=== PATIENT | male | born 1985 | race Caucasian/White ===

== ENCOUNTER 2023-04-16 18:53 | Emergency (ER) | payer SELFPAY ==
--- OUTSIDE RECORDS SUMMARY | 2023-04-16 18:58 | XMS REPORT | Continuity of Care Document ---
:1985 Author Organization [facility] t Address [address] [place] [address] Care Team Providers Name Role Phone No, Pcp [facility] Primary Care Physician Unavailable Hannah Benitez Attending Clinician Unavailable Reza Stacy Attending Clinician Unavailable UNKNOWN Attending Clinician Unavailable Saad Rocha Attending Clinician Unavailable Provider, Eugenia Edwards Attending Clinician Unavailable CONY ANSARI Attending Clinician Unavailable HUI BRASHER Attending Clinician Unavailable Physician, No Primary or Family Admitting Clinician UnavailVEE Chiang Admitting Clinician Unavailable Payers Payer Name Policy Type Policy Number Effective Date Expiration Date S [facility] Medicaid Traditional D [id number] Problems Condition Condition Condition Status Onset Resolution Last Treating Co mments Source Name Details Category Date Date Treatment Clinician Date Rhabdomyol Rhabdomyol Disease Active 2018-[address] [facility] 00 [place] [facility] in Pain in Disease Active Perez left wrist left wrist 8-30 He alth 00:00: 00 Hemorrhoid Hemorrhoid Disease Active H arris s, s, 8-18 Health external external 00:00: 00 Allergies, Adverse Reactions, Alerts Allergy Allergy Status Severity Reaction(s) Onset Inactive Treating Comm ents Source Name Type Date Date Clinician No Known DA Active U [facility] 4[facility]02 [facility] s 00:00: [facility] 00 are [place] No Known DA Active U [facility] All[facility] 1-26 [facility]ters s 00:00: Regiona Count includes the [facility] No Known DA Active U 2020-08 [facility] All[facility]ie 1-29 [facility]ters s 00:00: Region Count includes the [facility] No Known DA Active U 2015-08 [facility] Allergie 2-10 Etters s 00:00: Region Count includes the [facility] NO KNOWN Allergy Active [facility] Social History Social Habit Start Date Stop Date Quantity Comments Source Sexual orientation [facility] Gender identity [facility] alth History SDOH [facility] Alcohol Binge [facility] [place] [facility] History of tobacco Smokes tobacco [facility] use daily [facility] Center History SDOH [facility] Alcohol Std Drinks [facility] History of Social 2021-05-01 2021-05-01 [facility] function 00:00:00 00:00:00 Alcohol intake 2020-01-27 2020-01-[address] [facility] 00:00:00 00:00:00 non-drinker of Medical Ce nter alcohol (finding) Cigarettes smoked 2020-01-20 2020-01-[address] [facility] current (pack per 00:00:00 00:00:00 Medical Center day) - Reported Tobacco use and 2020-01-20 2020-01-20 Smokeless tobacco [facility] exposure 00:00:00 00:00:00 non-user Medical Center History SDOH 2019-06-13 2019-06-[address] [facility] Alcohol Frequency 00:00:00 00:00:00 Medical Center Sex Assigned At [address] [facility] 00:00:00 00:00:00 Medical Center Smoking Status Start Date Stop Date Source Smokes tobacco daily 2020-01-20 00:00:00 [facility] Medications Ordered Filled Start Stop Current Ordering Indication Dosage Frequency Signature Comments Components Source Medication Medication Date Date Medication? Clinician (SIG) Name Name hydrocortis 2013-08 Yes Rash Q.5D Apply to [facility]cho[facility] rris one 2.5 % 08-25 affected Health topical 00:00: area 2 cream 00 times daily. loratadine Yes Bed bug 10mg Take 1 Ochoa rris (CLARITIN) 9-08 bite tablet by [facility] th 10 mg 00:00: mouth tablet 00 daily as needed (itching). naproxen Yes Pain in 500mg Q.5D Take 1 Ronnie ris (NAPROSYN) 8-30 left wrist tablet by Health 500 mg 00:00: mouth 2 tablet 00 times daily (with meals). ANUSOL-HC Yes Hemorrhoids insert 1 Perez 25 MG 8-18 , external suppositor He alth SUPPOSITORY 00:00: y (25 mg) 00 by rectal route qhs Immunizations Ordered Immunization Filled Immunization Date Status Commen ts Source Name Name Tdap 2020-01-[address] [facility] Vital Signs Vital Name Observation Time Observation Value Comments Source HEIGHT 2020-01-27 00:00:00 160 cm WEIGHT 2020-01-27 00:00:00 58.06 kg WEIGHT 2020-01-20 00:00:00 58.968 kg WEIGHT 2020-01-20 00:00:00 58.968 kg Procedures This patient has no known procedures. Plan of Care Planned Activity Planned Date Details Comments Source Future Scheduled Test 2023-05-25 00:00:00 IMM Influenza [facility] Seasonal (>/= 19 yrs) [code = IMM Influenza Seasonal (>/= 19 yrs)] Future Scheduled Test 1984-04-27 00:00:00 COVID-19 Vaccine (#1) [facility] [code = COVID-19 Vaccine (#1)] Encounters Start End Encounter Admission Attending Care Care Encounter Source Date/Time Date/Time Type Type Clinicians Facility Department ID 2021-11-16 Outpatient [facility] [id number] [place] 18:48:06 [facility] 2020-01-30 Inpatient [facility] [id number] [facility] 12:54:00 07 [facility] 2020-01-19 Inpatient [facility] [id number] [facility] 13:24:00 81 [facility] 2021-11-242021-11-25 Emergency EM Emmanuel, HCATB JAROD [id number] [facility] 22:18:00 00:05:00 Hannah [address] [facility] are [place] 2021-09-19 2021-09-20 Emergency EM Reza Stacy [facility] J[facility]OD [id number] [facility] 21:16:00 02:42:00 11 [facility] 2021-07-24 2021-07-24 Outpatient UNKNOWN HCANW REF [id number] [facility] 09:11:00 09:11:[address] [facility] are [facility] st 2021-07-23 2021-07-24 Emergency EM Crismon, [facility] JAROD [id number] [facility] 22:57:00 05:27:00 [facility] 2020-12-24 2020-12-24 Emergency ER Provider, [facility] [id number] [facility] 06:41:00 06:41:00 Express -[id number] Sae Armstrong 2020-01-27 2020-01-27 Emergency ER [facility] Emergency [id number] [facility] 19:08:00 19:08:00 2020-01-20 2020-01-20 Emergency ER [facility] Emergency [id number] [facility] 14:00:00 14:00:00 Results Test Description Test Time Test Comments Results Result [facility] e Comments - CT C-SPINE W/O 2021-11-24 CONT 23:19:00 [facility] : 1985 Sex: M Toni kennedynt Name: ARELI BACA Unit No: [id number] EXAMS: CPT: [id number] CT C-SPINE W/O CONT 80291 CT CERVICAL SPINE WITHOUT IV CONTRAST: CLINICAL HISTORY: Injury COMPARISON: None. TECHNIQUE: Axial CT of the cervical spine without contrast was performed. Coronal and sagittal reformatted images are submitted. FINDINGS: Alignment is anatomic. No acute fractures are seen. Disc space and vertebral body heights are well-preserved. There is bilateral uncovertebral joint hypertrophy and narrowing at C4-5 and C6-7. No soft tissue abnormalities are seen. The partially visualized lung apices are clear. IMPRESSION: No acute abnormality. CT dose optimization is achieved for this examination by the use of a CT protocol in accordance with ACR practice standards and adherence to mine car mechanic's recommendations with automated exposure control. at 3908 Reported and signed by: Sixto Hanna MD CC: Technologist: Judi CHRISTIANSON CTDI: 45.2 DLP: 946.8 Trscr Dt/Tm: 11/24/2021 (7174) by:[email or web address] Orig Print D/T: S: 11/24/2021 (2323) BATCH NO: N/A Name: ARELI BACA [facility] Phys: Hannah Lucas MD [address] [facility] : 1985 Age: 36 Sex: M [place] Loc: T[facility] Exam Date: 11/24/2021 Status: REG ER PH: FAX: PAGE 1 Signed Report - CT MAXIFAC W/O 2021-11-24 CONTRAST 23:13:00 [facility] : 1985 Sex: M Pa tient Name: ARELI BACA Unit No: [id number] EXAMS: CPT: [id number] CT MAXIFAC W/O CONTRAST 27370 CT MAXILLOFACIAL WITHOUT CONTRAST: CLINICAL HISTORY: Injury TECHNIQUE: Axial CT imaging of the facial bones was performed without IV contrast. Sagittal and coronal reformatted images are submitted. FINDINGS: No facial bone fractures are seen. The globes and orbital floors are intact. There is no retrobulbar hemorrhage. The paranasal sinuses are clear. Soft tissue structures appear normal. IMPRESSION: Negative CT of the facial bones. DLP: 220.3 mGy-cm CT dose optimization is achieved for this examination by the use of a CT protocol in accordance with ACR practice standards and adherence to mine car mechanic's recommendations with automated exposure control. at 2313 Reported and signed by: Sixto Hanna MD CC: Technologist: Judi CHRISTIANSON CTDI: 7.2 DLP: 1173.1 Trscr Dt/Tm: 11/24/2021 (2313) by:[email or web address] Orig Print D/T: S: 11/24/2021 (2316) BATCH NO: N/A Name: ARELI BACA [facility] [place] Phys: Hannah Lucas MD [address] [facility] : 1985 Age: 36 Sex: M [place] Loc: T.ERS Exam Date: 11/24/2021 Status: REG ER PH: FAX: PAGE 1 Signed Report - CT MAXIFAC W/O 2021-09-19 CONTRAST 22:38:00 [facility] ERNESTINA BACAMaya Poole : 1985 Sex: M Patient Name: ARELI BACA Unit No: [id number] EXAMS: CPT CODE: [id number] CT MAXIFAC W/O CONTRAST 29600 Exam: CT of the brain without contrast. History: Trauma Technique: Contiguous axial CT images were obtained from the skull base through the vertex without contrast. One or more of the following dose reduction techniques were used: Automated exposure control, adjustment of the mA and/or kV according to patient size, and/or utilization of iterative reconstruction technique. Comparison: None Location: R16 Findings: The ventricles and sulci are normal in size and symmetric. The basal cisterns are patent. There is no mass effect or midline shift. There is no acute intracranial hemorrhage. There are no extra-axial fluid collections. Paranasal sinuses and mastoid air cells are clear. Impression: No CT evidence of an acute intracranial hemorrhage or significant mass effect CT OF THE FACIAL BONES WITHOUT CONTRAST CLINICAL HISTORY: Trauma TECHNIQUE: Contiguous axial images of the facial bones were obtained. Sagittal and coronal reformats were provided. One or more of the following dose reduction techniques were used: Automated exposure control, adjustment of the mA and/or kV according to patient size, and/or utilization of iterative reconstruction technique. COMPARISONS: There are no prior similar studies available for comparison. FINDINGS: No definite CT evidence of acute facial bone fracture or dislocation is seen. No evidence of retrobulbar hematoma is demonstrated. Nonspecific flattening of the bilateral mandibular heads is seen. Postsurgical changes of the left mandible are noted. Sinuses and mastoid air cells are clear. Limited evaluation of the temporal bone on this examination concern persists a temporal bone CT can be performed for further evaluation as indicated IMPRESSION: GAB Pottere NAME: ARELI BACA [address] [place], [place] [address] PHYS: Ciro Peacock [place], [place] [address] : 1985 AGE: 35 SEX: M LOC: HarshadARON PHONE #: [phone] EXAM DATE: 09/19/2021 STATUS: PRE ER FAX #: [phone] RAD #: D/C DT PAGE 1 Signed Report (CONTINUED) Patient Name: ARELI BACA Unit No: [id number] EXAMS: CPT CODE: [id number] CT MAXIFAC W/O CONTRAST 31465 (Continued) No definite CT evidence of acute facial bone fracture or dislocation is seen. No evidence of retrobulbar hematoma is demonstrated. Nonspecific flattening of the bilateral mandibular heads is seen. Postsurgical changes of the left mandible are noted. Sinuses and mastoid air cells are clear. Limited evaluation of the temporal bone on this examination concern persists a temporal bone CT can be performed for further evaluation as indicated. at 2238 Reported and signed by: Elaine Jefferson M.D. CC: Ciro Umanzor Dictated Date/Time: 09/19/2021 (2237) Technologist: MILAN ESCOBAR MA CTDI: 9.55 DLP: 208 Trnscrpt: 09/19/2021 (2237) [email or web address] GAB Cooper NAME: ARELI BACA [address] [place] [address] PHYS: MILAGROSSYLVIA [place] [address] : 1985 AGE: 35 SEX: M LOC: B.ERS PHONE #: [phone] EXAM DATE: 09/19/2021 STATUS: PRE ER FAX #: [phone] RAD #: D/C DT PAGE 2 Signed Report Patient Name: ARELI BACA Unit No: [id number] EXAMS: CPT CODE: [id number] CT MAXIFAC W/O CONTRAST 91892 (Continued) Orig Print D/T: S: 09/19/2021 (2241) GAB Cooper NAME: ARELI BACA [address] [place] [address] PHYS: MILAGROSSYLVIA Pantoja Ciro [place]man[place] [address] : 1985 AGE: 35 SEX: M LOC: B.ERS PHONE #: [phone] EXAM DATE: 09/19/2021 STATUS: PRE ER FAX #: [phone] RAD #: D/C DT PAGE 3 Signed Report - CT HEAD/BRAIN 2021-09-19 W/O CONT 22:38:00 [facility] : 1985 Sex: M Patient Name: ARELI BACA Unit No: [id number] EXAMS: CPT CODE: [id number] CT HEAD/BRAIN W/O CONT 15491 Exam: CT of the brain without contrast. History: Trauma Technique: Contiguous axial CT images were obtained from the skull base through the vertex without contrast. One or more of the following dose reduction techniques were used: Automated exposure control, adjustment of the mA and/or kV according to patient size, and/or utilization of iterative reconstruction technique. Comparison: None Location: R16 Findings: The ventricles and sulci are normal in size and symmetric. The basal cisterns are patent. There is no mass effect or midline shift. There is no acute intracranial hemorrhage. There are no extra-axial fluid collections. Paranasal sinuses and mastoid air cells are clear. Impression: No CT evidence of an acute intracranial hemorrhage or significant mass effect CT OF THE FACIAL BONES WITHOUT CONTRAST CLINICAL HISTORY: Trauma TECHNIQUE: Contiguous axial images of the facial bones were obtained. Sagittal and coronal reformats were provided. One or more of the following dose reduction techniques were used: Automated exposure control, adjustment of the mA and/or kV according to patient size, and/or utilization of iterative reconstruction technique. COMPARISONS: There are no prior similar studies available for comparison. FINDINGS: No definite CT evidence of acute facial bone fracture or dislocation is seen. No evidence of retrobulbar hematoma is demonstrated. Nonspecific flattening of the bilateral mandibular heads is seen. Postsurgical changes of the left mandible are noted. Sinuses and mastoid air cells are clear. Limited evaluation of the temporal bone on this examination concern persists a temporal bone CT can be performed for further evaluation as indicated IMPRESSION: GAB Cooper NAME: ARELI BACA [address] [place] [address] PHYS: [place] [address] : 1985 AGE: 35 SEX: M LOC: B.ERS PHONE #: [phone] EXAM DATE: 09/19/2021 STATUS: PRE ER FAX #: [phone] RAD #: D/C DT PAGE 1 Signed Report (CONTINUED) Patient Name: ARELI BACA Unit No: [id number] EXAMS: CPT CODE: [id number] CT HEAD/BRAIN W/O CONT 82180 (Continued) No definite CT evidence of acute facial bone fracture or dislocation is seen. No evidence of retrobulbar hematoma is demonstrated. Nonspecific flattening of the bilateral mandibular heads is seen. Postsurgical changes of the left mandible are noted. Sinuses and mastoid air cells are clear. Limited evaluation of the temporal bone on this examination concern persists a temporal bone CT can be performed for further evaluation as indicated. at 2238 Reported and signed by: Elaine Jefferson M.D. CC: Ciro Umanzor Dictated Date/Time: 09/19/2021 (2237) Technologist: MILAN ESCOBAR MA CTDI: 9.55 DLP: 208 Trnscrpt: 09/19/2021 (2237) [email or web address] GAB Cooper NAME: ARELI BACA [address] [place] [address] PHYS: Ciro [place] [id number] : 1985 AGE: 35 SEX: M LOC: B.ERS PHONE #: [phone] EXAM DATE: 09/19/2021 STATUS: PRE ER FAX #: [phone] RAD #: D/C DT PAGE 2 Signed Report Patient Name: ARELI BACA Unit No: [id number] EXAMS: CPT CODE: [id number] CT HEAD/BRAIN W/O CONT 80451 (Continued) Orig Print D/T: S: 09/19/2021 (2241) [facility] NAME: ARELI BACA [address] [place] [address] PHYS: Ciro [place], [place] [address] : 1985 AGE: 35 SEX: M LOC: B.ERS PHONE #: [phone] EXAM DATE: 09/19/2021 STATUS: PRE ER FAX #: [phone] RAD #: D/C DT PAGE 3 Signed Report - CT ABD PELVIS 2021-07-24 W/O CONT 05:02:00 [facility] : 1985 Sex: M Patient Name: ARELI BACA Unit No: [id number] EXAMS: CPT CODE: [id number] CT ABD PELVIS W/O CONT 03304 EXAM: - CT ABD PELVIS W/O CONT LOCATION: H61 CLINICAL HISTORY/INDICATION: inguinal pain..uti..hematuria COMPARISON: CT 01/19/2020 TECHNIQUE: Axial CT images of the abdomen and pelvis were obtained from the diaphragm to the lesser trochanter with IV contrast administration. Coronal and sagittal reformations were reconstructed from the axial data set. Postcontrast images were acquired in the portal venous phase This examination was performed according to our departmental dose optimization program, which includes automated exposure control, adjustment of the mA and/or kV according to patient size, and/or use of iterative reconstruction technique. FINDINGS: LOWER THORAX: Clear. LIVER: No focal hepatic lesions or intrahepatic biliary dilatation. GALLBLADDER/BILIARY SYSTEM: Normal CT appearance of the gallbladder. No common duct dilatation. PANCREAS: Unremarkable. SPLEEN: No splenomegaly or focal lesions. ADRENALS: No adrenal nodules. KIDNEYS/URETERS: No hydronephrosis, stones, or solid mass lesions. VESSELS: No AAA. Patent portal vein. LYMPH NODES: No lymphadenopathy. PERITONEUM / RETROPERITONEUM: No free air or fluid. GI TRACT: Small bowel and colon are not dilated. No bowel wall thickening. The appendix is normal. GENITOURINARY ORGANS: Prostate gland and seminal vessels are unremarkable. A few calcified phleboliths adjacent to the left seminal vesicle. PELVIC FREE FLUID/FLUID COLLECTION: None. URINARY BLADDER: Normal partially distended appearance of the urinary bladder without wall thickening or hemorrhage. EXTERNAL SOFT TISSUE: No inguinal hernia or abdominal wall hematoma. GAB Cooper NAME: ARELI BACA [address] PHYS: Camille [place] [address] : 1985 AGE: 35 SEX: M LOC: B.ERS PHONE #: [phone] EXAM DATE: 07/24/2021 STATUS: REG ER FAX #: [phone] RAD #: D/C DT PAGE 1 Signed Report (CONTINUED) Patient Name: ARELI BACA Unit No: [id number] EXAMS: CPT CODE: [id number] CT ABD PELVIS W/O CONT 00016 (Continued) BONES: Regional osseous structures are intact. Mild lower lumbar spine facet arthrosis. IMPRESSION: 1. No acute findings demonstrated in the abdomen and pelvis. 2. No nephrolithiasis or urolithiasis. at 0502 Reported and signed by: Aimee Trammell MD CC: Camille Reid Dictated Date/Time: 07/24/2021 (0502) Technologist: Aishwarya Davis CTDI: 5.61 DLP: 291.11 Trnscrpt: 07/24/2021 (0502) [email or web address] GAB Cooper NAME: ARELI BACA [address] [place] [address] PHYS: Camille [place] [address] : 1985 AGE: 35 SEX: M LOC: B.ERS PHONE #: [phone] EXAM DATE: 07/24/2021 STATUS: REG ER FAX #: [phone] RAD #: D/C DT PAGE 2 Signed Report Patient Name: ARELI BACA Unit No: [id number] EXAMS: CPT CODE: [id number] CT ABD PELVIS W/O CONT 80930 (Continued) Orig Print D/T: S: 07/24/2021 (0506) [facility] [place] NAME: ARELI BACA [address] [place] [address] Blvd PHYS: Camille Hollis APRMARIANNE [place] [id number] : 1985 AGE: 35 SEX: M LOC: Eduarda.ERS PHONE #: [phone] EXAM DATE: 07/24/2021 STATUS: REG ER FAX #: [phone] RAD #: D/C DT PAGE 3 Signed Report URINALYSIS COMPLETE 2021-07-24 00:27:00 Test Item Value Reference Range Interpretation Comme nts UA COLOR (test code = LIGHT-RED DESCRIPT YELLOW COLU) UA APPEARANCE (test code = TURBID (2+) DESCRIPT CLEAR A APPU) UA GLUCOSE DIPSTICK (test NORMAL (0) mg/dL See_Comment [Automated message] code = DGLUU) The system [employer]Search generated this result transmitted ref erence range: 0 (RAVINDRA L). The reference range was not used to interpr et this result as normal/abnormal . UA BILIRUBIN DIPSTICK NEGATIVE (0.0) mg/dL See_Comment [Automated message] (test code = BILU) The [employer] which generated this result transmitted ref erence range: (NEG) 0. The reference range was not used to interpr et this result as normal/abnormal . UA KETONE DIPSTICK (test TRACE mg/dL See_Comment [A utomated message] code = KETU) The system [facility] generated this result transmitted ref erence range: (NEG) 0. The reference range was not used to interpr et this result as normal/abnormal . UA SPECIFIC GRAVITY (test 1.025 SG 1.001-1.035 code = SGU) UA BLOOD DIPSTICK (test OVER >=1.0 mg/dL mg/dL See_Comment A [Automated message] code = RODGER) The system amcure generated this result transmitted ref erence range: 0 (NEG). The reference range was not used to interpr et this result as normal/abnormal . UA PH DIPSTICK (test code 6.0 pH UNITS 4.6-8.0 = KANE) UA PROTEIN DIPSTICK (test 70 (1+) mg/dL See_Comment A [Automated message] code = PROU) The system [employer]ure generated this result transmitted ref erence range: <30 (1+) . The reference range was not used to interpr et this result as normal/abnormal . UA UROBILINIOGEN DIPSTICK NORMAL (0) mg/Dl See_Comment [Automated message] (test code = URO) The system which generated this result transmitted ref erence range: <2.0 (1+ ). The reference range was not used to interpr et this result as normal/abnormal . UA NITRITE DIPSTICK (test NEGATIVE (0) SCREEN NEG code = GABI) UA LEUKOCYTE ESTERASE 500 Leuk/mcL See_Comment A [Auto mated message] DIPSTICK (test code = The sy stem which LEUU) generated this result transmitted ref erence range: (NEG) 0. The reference range was not used to interpr et this result as normal/abnormal . UA WBC (test code = WBCU) >100 #WBC/HPF 0-3 A UA RBC (test code = RBCU) >100 #RBC/HPF 0-3 A UA BACTERIA (test code = FEW >1 /HPF NONE-FEW BACU) UA SQUAMOUS CELLS (test RARE >0 /UL NONE-SQepi code = SQU) - DUP AB/PEL/SC [id number] 23:45:00 [facility] : 1985 Sex: M Patient Name: RAELI BACA Unit No: [id number] EXAMS: CPT CODE: [id number] DUP AB/PEL/SC LTD 84744 EXAM: - US SCROTUM AND CNTS, - DUP AB/PEL/SC LTD LOCATION: [facility] INDICATION/CLINICAL HISTORY: testicle pain COMPARISON: Testicular ultrasound July 03, 2016. TECHNIQUE: Grayscale, color doppler, and doppler waveform analysis was performed of the hemiscrotum bilaterally. FINDINGS: RIGHT HEMISCROTUM: Right Testicle Size: 4.5 x 2.3 x 3.0 cm. Intratesticular flow: Normal. Parenchyma: Normal homogeneous echotexture without intratesticular mass. Epididymis: Normal echogenicity and vascularity. 2 simple cysts in the epididymal head which measures up to 8 mm and 14 mm. Hydrocele: None. Varicocele: None. Additional findings: None. LEFT HEMISCROTUM: Left Testicle Size: 4.1 x 2.7 x 2.7 cm. Intratesticular flow: Normal. Parenchyma: Normal homogeneous echotexture without intratesticular mass. Epididymis: Normal echog enicity and vascularity. Hydrocele: None. Varicocele: None. Additional findings: None. IMPRESSION: 1. No testicular torsion, mass or orchitis. 2. A few small simple cysts in the right [facility]id[facility] head.[facility] [place] NAME: ARELI BACA [address] [place] [address] PHYS: Camille Hollis [place] [address] : 1985 AGE: 35 SEX: M LOC: EDWIGE PHONE #: [phone] EXAM DATE: 07/23/2021 STATUS: PRE ER FAX #: [phone] RAD NO: Page 1 Signed Report (CONTINUED) Patient Name: ARELI BACA Unit No: [id number] EXAMS: CPT CODE: [id number] DUP AB/PEL/SC LTD 83320 (Continued) at 2345 Reported and signed by: Aimee Trammell MD CC: Camille Reid Technologist: Annette Adam Trnscrbd D/ ([id number])[email or web address] Probe: Orig Print D/T: S: 07/23/2021 (3905) Probe: GAB Cooper NAME: ARELI BACA [address] [place] [address] PHYS: Camille Hollis, [place] [address] : 1985 AGE: 35 SEX: M LOC: B.ERS PHONE #: [phone] EXAM DATE: 07/23/2021 STATUS: PRE ER FAX#: [phone] RAD NO: Page 2 Signed Report- US SCROTUM AND CNTS 2021-07-23 23:45:00 [facility] : 1985 Sex: M Patient Name: ARELI BACA Unit No: [id number] EXAMS: CPT CODE: [id number] US SCROTUM AND CNTS 80003 EXAM: -US SCROTUM AND CNTS, - DUP AB/PEL/SC LTD LOCATION: [facility] INDICATION/CLINICAL HISTORY: testicle pain COMPARISON: Testicular ultrasound July 03, 2016. TECHNIQUE: Grayscale, color doppler, and doppler waveform analysis was performed of the hemiscrotum bilaterally. FINDINGS: RIGHT HEMISCROTUM: Right Testicle Size: 4.5 x 2.3 x 3.0 cm. Intratesticular flow: Normal. Parenchyma: Normal homogeneous echotexture without intratesticular mass. Epididymis: Normal echogenicity and vascularity. 2 simple cysts inthe epididymal head which measures up to 8 mm and 14 mm. Hydrocele: None. Varicocele: None. Additional findings: None. LEFT HEMISCROTUM: Left Testicle Size: 4.1 x 2.7 x 2.7 cm. Intratesticular flow: Normal. Parenchyma: Normal homogeneous echotexture without intratesticular mass. Epididymis: Normal echogenicity and vascularity. Hydrocele: None. Varicocele: None. Additional findings: None. IMPRESSION: 1. No testicular torsion, mass or orchitis. 2. A few small simple cysts in the right epididymal head. GAB Cooper NAME: ARELI BACA [address] [place] [address] PHYS: [place] [address] : 1985 AGE: 35 SEX: M LOC: B.ERS PHONE #: [phone] EXAM DATE: 07/23/2021 STATUS: PRE ER FAX #: [phone] RAD NO: Page 1 Signed Report (CONTINUED) Suri ent Name: ARELI BACA Unit No: [id number] EXAMS: CPT CODE: [id number] US SCROTUM AND CNTS 99460 (Continued) at 2345 Reported and signed by:Aimee Trammell MD CC: Camille Reid Technologist: Annette Adam Trnscrbd D/ (2345) [email or web address] Probe: Orig Print D/T: S: 07/23/2021 (2349) Probe: GAB Cooper NAME: ARLEI BACA [address] [place] [address] PHYS: [place]ille [place] [id number] : 1985 AGE: 35 SEX: M LOC: B.ERS PHONE #: [phone] EXAM DATE: 07/23/2021 STATUS: PRE ER FAX #: [phone] RAD NO: Page 2 Signed [id number] 07:29:00 Test Item Value Reference Range Interpretation Comments Chemistry (test Less than 10.0-30.0 L Therapeutic Range: 10.0 - code = ACET-T) 6.0 mcg/mL 30.0 ug/mLTox ic Range: Possible toxici ty: 150 - 200 ug/mL Probable toxicity: Greater than 20 0 ug/mL*IMPORTANT TESTING INFORMATION* Th e half-life of NAC is 2 nicki rs. The total NAC clearanceis 5.6 hours for adults and 11 hours for Newborns. Testi ng acetaminophen l evels prior to a reasonable timeframe for clearance c an cause falsely decreasedacetam inophen levels. Chemistry (test Less than Less than 10 The pharmaco logical response code = ETOH) 10 mg/dL to blood alcoho l levels mayvary from in dividual to individual. Neg ative: Less than 10 mg/dL T oxic: 50 - 100 mg/dL Depre ssion of [employer] REPAIRER: Greater than 10 0 mg/dL Fatalities repo rted: Greater than 400 mg/dL Chemistry (test Less than 15.0-30.0 L code = SALCY) 8.0 mg/dL [id number] 07:28:00 Test Item Value Reference Range Interpretation Comments Chemistry (test Less than < 0.028 code = TROPI-R) 0.010 ng/mL Reference Ra nge 0.00 - 0.028 ng /mL Negative 0.029 - 0.29 ng/mL Indetermi bill Greater or Equa l to 0.3 ng/mL Stron gly suggests LA [id number] 07:25:00 Test Item Value Reference Range Interpretation Comments Chemistry (test code 138 mmol/L 136-145 N = NA-T) Chemistry (test code 4.3 mmol/L 3.5-5.1 N = K-T) Chemistry (test code 103 mmol/L 98-107 N = CL) Chemistry (test code 29 mmol/L 22-29 N = CO2) Chemistry (test code 10 mmol/L 10-20 N = ANGP) Chemistry (test code 16 mg/dL 8.9-20.6 N = BUN) Chemistry (test code 0.98 mg/dL 0.7-1.3 N = CREATT) Chemistry (test code 86 Referen ce Range for = EGFRMDRD) Estimated GFR: Greater than 90 mL/min/ 1.73 m2NOTE:The MDRD equation has no t been validated for u se with theelderly (ove r 70 years of age), women, patients with serious comorbi d condition or pe rsons with extremes o fbody size, muscle ma ss, or nutritional sta tus. Chemistry (test code 97 mg/dL 70-105 N = GLU-T) Chemistry (test code 8.7 mg/dL 7.8-10.44 N = CA) Chemistry (test code 0.2 mg/dL 0.2-1.2 N = TBILI-T) Chemistry (test code 6.2 g/dL 6.0-8.3 N = TP) Chemistry (test code 3.7 g/dL 3.5-5.0 N = ALB) Chemistry (test code 2.5 g/dL 2.4-3.5 N = GLOB) Chemistry (test code 1.5 g/dL 1.2-2.2 N = AG) Chemistry (test code 66 U/L 40-110 N = ALP) Chemistry (test code 20 U/L 5-34 N = AST) Chemistry (test code 14 U/L 8-55 N = ALT) [id number] 07:25:00 Test Item Value Reference Range Interpretation Comments Chemistry (test code = MG) 2.0 mg/dL 1.6-2.6 N [id number] 07:16:00 Test Item Value Reference Range Interpretation Comments Coagulation (test Less than 0.27-0.43 L * Referenc e Range code = DDIMTT) 0.27 *mcg/mL Units: mcg/mL of fibrinogen equi valent units(FEU)Based upon a retrospective study of [facility] in December 2005, a result of"Less than 0. 44 mcg/mL FEU" is predictive of t he absence ofa DVT or PE. [id number] 07:02:00 Test Item Value Reference Range Interpretation Comments Hematology (test code = WBCT) 10.6 thou/uL 4.8-10.8 N Hematology (test code = RBCT) 4.28 mill/uL 4.70-6.10 L Hematology (test code = HGBT) 13.4 g/dL 14.0-18.0 L Hematology (test code = HCTT) 40.3 % 42.0-52.0 L Hematology (test code = MCV) 94.2 fL 78.0-98.0 N Hematology (test code = MCH) 31.2 pg 27.0-31.0 H Hematology (test code = MCHC) 33.1 g/dL 32.0-36.0 N Hematology (test code = RDW) 11.7 % 11.5-14.5 N Hematology (test code = PLTT) 269 thou/uL 130-400 N Hematology (test code = MPV) 7.5 fL 7.4-10.4 N Hematology (test code = %NEUT) 53.1 % 42.0-75.0 N Hematology (test code = %LYMPH) 32.3 % 21.0-51.0 N Hematology (test code = %MONO) 9.8 % 0.0-10.0 N Hematology (test code = %EOS) 3.8 % 0.0-10.0 N Hematology (test code = %BASO) 1.0 % 0.0-1.0 N Hematology (test code = NEUT#) 5.7 thou/uL 1.40-6.50 N Hematology (test code = LYMPH#) 3.4 thou/uL 1.20-3.40 N Hematology (test code = MONO#) 1.0 thou/uL 0.11-0.59 H Hematology (test code = EOS#) 0.4 thou/uL 0.0-0.7 N Hematology (test code = BASO#) 0.1 thou/uL 0.0-0.2 N LACTIC [id number] 19:55:00 Test Item Value Reference Range Interpretation Comments LACTIC ACID (test code = LACT) 1.3 mmol/L 0.4-2.0 N EMERGENCY ROOM [id number] 19:20:00 Test Item Value Reference Range Interpretation Comments DIAGNOSIS (test code = SPECIMENS RCVED RECEIVED DIAG) SPECIMEN - CT LOWER EXTRM W/O C [id number] 16:42:00 Patient Name: ARELI BACA Unit No: [id number] EXAMS: CPT CODE: [id number] CT LOWER EXTRM W/[place] [address] Exam: CT of the left ankle without contrast Location: A1 HISTORY: , eval left talus fx, COMPARISON: Correlation with left ankle radiograph from 01/30/2020 TECHNIQUE: Axial images of the left ankle were obtained without contrast. Images were reformatted to create coronal and sagittal reconstructions. 3-dimensional reconstructions were also performed and evaluated. . One or more of the following dose reduction techniques were used: Automated exposure control, adjustment of the mA and/or kV according to patient size, and/or utilization of iterative reconstruction technique. DLP: 59 mGy-cm. FINDINGS: There is mildly displaced fracture of the posterior process of the talus. There is also mildly displaced fracture of the lateral process of the talus. There is mild soft tissue swelling adjacent to these fractures. The talar neck is intact. The talar dome is maintained. Articular surfaces are grossly within normal limits. The tibiotalar joint is preserved. The calcaneus is intact. Accessory ossicle is noted adjacent to the cuboid bone. The midfoot and forefoot are otherwise maintained without further fracture. The tarsal tunnel is grossly maintained. The Achilles tendon is intact. There is mild infiltration of Keger's fat pad. IMPRESSION: Mildly displaced fractures of the posterior and lateral processes of the talus. The talar neck, talar dome and tibiotalar joint are maintained. at 1642 Reported and signed by: Tanner Jones M.D. CC: Clotilde Castanon MD Dictated Date/Time: 01/30/2020 (1641) Technologist: Michelle Villarreal CTDI: 2.78 DLP: 59.64 Trnscrpt: 01/30/2020 (1641) [facility] NAME: ARELI BACA [address] [place] [address] PHYS: ROEJA. Clotilde Castanon [place], [place] [address] : 1985 AGE: 34 SEX: M LOC: EDWIGE PHONE #: [phone] EXAM DATE: 01/30/2020 STATUS: REG ER FAX #: [phone] RAD #:D/C DT PAGE 1 Signed Report Patient Name: ARELI BACA Unit No: [id number] EXAMS: CPT CODE: [id number] CT LOWER EXTRM W/[place] [address] (Continued) Orig Print D/T: S: 01/30/2020 (1645) GAB Pottere NAME:ARELI BACA [address] [place] [address] PHYS: SHADY. - Clotilde [place]anon [place], [place] [address] : 1985 AGE: 34 SEX: M LOC: EDWIGE PHONE #: [phone] EXAM DATE: 01/30/2020 STATUS: REG ER FAX #: [phone] RAD #: D/C DT PAGE 2 Signed Report- CT MAXIFAC W/[id number] 16:19:00 Patient Name: ARELI BACA Unit No: [id number] EXAMS: CPT CODE: [id number] CT MAXIFAC W/CONTRAST 92263 R16 EXAM: - CT MAXIFAC W/CONTRAST HISTORY: LEFT SUBMANDIB FLUID COLLECTION/MATTHEW TECHNIQUE: Axial images were obtained through the facial bones and orbits after intravenous contrast. Sagittal and coronal reconstructions were created from the data. One or more of the following dose reduction techniques were used: Automated exposure control, adjustment of the mA and/or kV according to patient size, and/or iterative reconstruction. COMPARISON: 01/19/2020 FINDINGS: Postsurgical changes related to placement of a metallic plate screw construct on the left mandibular body and upper and lower fixation wires. Multiple additional screws are noted in the lingual surface of the maxilla. One of the screws inthe right maxilla does not appear to be within bone. A surgical drain is noted in the left submandibular region. Moderate left submandibular soft tissue swelling. No organized drainable fluid collection. Left mandibular body fracture again noted. Unchanged fractures in bilateral mandibular condyles. The facial bones are otherwise within normal limits. Specifically, there is no evidence of additionalfracture, dislocation, or aggressive osseous lesions. The globes are normal in size, contour, and position. The course and caliber of the optic nerve sheath complex is within normal limits. The extraocular muscles, intraconal fat, and extraconal fat are within normal limits. The lacrimal glands appearnormal. The orbital panchal and optic canals are normal. The visualized intracranial structures appear normal. No lesion of the visualized skull base or calvarium is present. The paranasal sinuses and tympanomastoid cavities are unopacified. IMPRESSION: Postsurgical changes in the mandible. One screw in the right maxilla does not appear to have bony purchase. Marked soft tissue swelling/phlegmon in the left submandibular region. No drainable abscess. at 1619 Reported and signed by: Jeffrey Calvin MD [facility] NAME: ARELI BACA [address] PHYS: [place]ilde [place] [address] : 1985 AGE: 34 SEX: M LOC: B.ERS PHONE #: [phone] EXAM DATE: 01/30/2020 STATUS: REG ER FAX #: [phone] RAD #: D/C DT PAGE 1 Signed Report (CONTINUED) Patient Name: ARELI BACA Unit No: [id number] EXAMS: CPT CODE: [id number] CT MAXIFAC W/CONTRAST 35960 (Continued) CC: Clotilde Castanon MD Dictated Date/Time: 01/30/2020 (1618) Technologist: Michelle Villarreal CTDI: 9.32 DLP: 216.74 Trnscrpt: 01/30/2020 (1618) [facility] NAME: ARELI BACA [address] PHYS: [place]ilde [place] [address] : 1985 AGE: 34 SEX: M LOC: B.ERS PHONE #:[phone] EXAM DATE: 01/30/2020 STATUS: REG ER FAX #: [phone] RAD #: D/C DT PAGE 2 Signed Report Patient Name: ARELI BACA Unit No: [id number] EXAMS: CPT CODE: [id number] CT MAXIFAC W/CONTRAST 43292 (Continued) Orig Print D/T: S: 01/30/2020 (1622) GAB Allison NAME: ARELI BACA [address] [place] [address] PHYS: Clotilde An MD, [place] [address] : 1985 AGE: 34 SEX: M LOC: B.ERS PHONE #: [phone] EXAM DATE: 01/30/2020 STATUS: REG ER FAX #: [phone] RAD #: D/C DT PAGE 3 Signed ReportBASIC METABOLIC [id number] 14:45:00 Test Item Value Reference Range Interpretation Comments SODIUM (test code = 133.0 mmol/L 133-144 N NA) POTASSIUM (test code 3.7 mmol/L 3.5-5.1 N = K) CHLORIDE (test code 99 mmol/L 95-105 N = CL) CARBON DIOXIDE (test 28 mmol/L 21-32 N code = CO2) ANION GAP (test code 6.0 GAP calc 4.0-15.0 N = GAP) GLUCOSE (test code = 109 MG/DL 70-110 N GLU) BLOOD UREA NITROGEN 13 MG/DL 7-18 N (test code = BUN) CREATININE (test 0.93 MG/DL 0.55-1.30 N Results may be code = CREAT) depressed if patient is takingN-Acetylc yste ine (NAC) and Metamizole (Dipyrone). CALCIUM (test code = 9.2 MG/DL 8.5-10.1 N CA) INDEX HEMOLYSIS 1 NORMAL <10 MG 1 NORMAL (test code = Index/DL HEMINDEX) INDEX ICTERIC (test 1 NORMAL <2 MG 1 NORMAL code = ICTINDEX) Index/DL INDEX LIPEMIA (test 1 NORMAL <50 MG 1 NORMAL code = LIPINDEX) Index/DL CBC W/AUTO [id number] 14:44:00 Test Item Value Reference Range Interpretation Comments WHITE BLOOD CELL (test code = 9.0 K/mm3 4.1-12.1 N WBC) RED BLOOD CELL (test code = RBC) 4.38 M/mm3 3.8-5.5 N HEMOGLOBIN (test code = HGB) 12.8 G/DL 10.6-15.8 N HEMATOCRIT (test code = HCT) 40.4 % 31.8-47.4 N MEAN CELL VOLUME (test code = 92.2 fL 80.1-101.1 N MCV) MEAN CELL HGB (test code = MCH) 29.2 pg 25.3-35.3 N MEAN CELL HGB CONCETRATION (test 31.7 G/DL 32.7-35.1 L code = MCHC) RED CELL DISTRIBUTION WIDTH 12.2 % 12.2-16.4 N (test code = RDW) RED CELL DISTRIBUTION WIDTH 41.4 fL 35.1-43.9 N (test code = RDW-SD) PLATELET COUNT (test code = PLT) 549 K/mm3 155-337 H MEAN PLATELET VOLUME (test code 9.4 fL 7.6-10.4 N = MPV) GRANULOCYTE % (test code = GR%) 58.5 % 37.8-82.6 N IMMATURE GRANULOCYTE % (test 0.7 % 0.0-2.0 N code = IG%) LYMPHOCYTE % (test code = LY%) 28.3 % 14.1-45.4 N MONOCYTE % (test code = MO%) 9.7 % 2.5-11.7 N EOSINOPHIL % (test code = EO%) 2.1 % 0.0-6.2 N BASOPHIL % (test code = BA%) 0.7 % 0.0-2.6 N NUCLEATED RBC % (test code = 0.0 /100WBC% 0.0-1.0 N NRBC%) GRANULOCYTE # (test code = GR#) 5.29 k/mm3 2.0-13.7 N IMMATURE GRANULOCYTE # (test 0.06 K/mm3 0.00-0.03 H code = IG#) LYMPHOCYTE # (test code = LY#) 2.56 K/mm3 0.6-3.8 N MONOCYTE # (test code = MO#) 0.88 K/mm3 0.11-0.59 H EOSINOPHIL # (test code = EO#) 0.19 K/mm3 0.0-0.4 N BASOPHIL # (test code = BA#) 0.06 K/mm3 0.0-0.1 N NUCLEATED RBC # (test code = 0.00 K/mm3 0.00-0.05 N NRBC#) - XR FOOT 3 + V [id number] 14:23:00 FAX: Clotilde Jimenez MD [phone] [place]: St: PRE Patient Name: ARELI BACA Unit No: [id number] EXAMS: CPT CODE: [id number] XR FOOT 3 + [place] [address] Examination: Bilateral feet 3 views Location code: H60 Comparison: None Discussion: Clinical history is remarkable for trauma. Patient fell out of tree. There is a transverse fracture identified based the 5th metatarsal bone of the right. No additional fractures identifiedinvolving the right foot. There is no evidence for dislocation. There is no evidence for acute fracture or dislocation involving the left foot. Impression: 1. Fracture identified the base of the 5th metatarsal bone of the right foot. 2. Unremarkable left foot without evidence for acute fracture or dis location. at 1423 Reported and signed by:Cy Sow MD CC: Clotilde Castanon MD Dictated Date/Time: 01/30/2020 (1423)Technologist: Micaela Hunterribed Date/Time: 01/30/2020 (1423) By: [email or web address] Orig Print D/T: S: 01/30/2020 (9116) GAB Cooper NAME: ARELI BACA [address] [place] [address] PHYS: SHADY. Clotilde [place]os [place], [place] [address] : 1985 AGE: 34 SEX: M LOC: B.ERS PHONE #: [phone] EXAM DATE: 01/30/2020 STATUS: PRE ER FAX #: [phone] RAD NO: DC Dt: PAGE 1 Signed Report- XR ANKLE 3 + V [id number] 14:22:00 FAX: Clotilde Jimenez MD [phone] [place]: St: PRE Patient Name: ARELI BACA Unit No: [id number] EXAMS: CPT CODE: [id number] XR ANKLE 3 + [place] [address] Examination: Bilateral ankles 3 views Location code: H60 Comparison: None Discussion: Clinical history is remarkable for trauma. Patient fell out of 3. A well-corticated bony fragment is identified just inferior to the distal fibula consistent with an old evulsion injury.No acute fracture is identified in the right ankle. There is no evidence for dislocation. In the left ankle there is lucency identified in the inferolateral aspect of the talus suspicious for a small acute fracture. No additional fractures identified. There is no evidence for dislocation. No other bony or soft tissue abnormalities identified. IMPRESSION: 1. Findings suspicious for a small avulsion type fracture identified involving the left inferolateral talus. 2. No acute fracture identified in the right ankle. 3. Old avulsion-type fracture arising from the inferior aspect of the distal fibula onthe right. at 1422 Reported and signed by: Cy Sow MD CC: Clotilde Castanon MD Dictated Date/Time: 01/30/2020 (142)Technologist: Micaela Cowan Transcribed Date/Time: 01/30/2020 (1421) By: [email or web address] Orig Print D/T: S: 01/30/2020 (5572) GAB Cooper NAME: ARELI BACA [address] [place] [address] PHYS: ROEJA. Clotilde [place], [place] [address] : 1985 AGE: 34 SEX: M [id number] LOC: EDWIGE PHONE #: [phone] EXAM DATE: 01/30/2020 STATUS: PRE ER FAX #: [phone] RAD NO: DC Dt: PAGE 1 Signed ReportURINALYSIS W/ [id number] 17:07:00 Test Item Value Reference Range Interpretation Comments COLOR (BEAKER) (test code = 470) Yellow CLARITY (BEAKER) (test code = 469) Clear SPECIFIC GRAVITY UA (BEAKER) (test 1.033 1.001-1.035 code = 468) PH UA (BEAKER) (test code = 467) 5.0 5.0-8.0 PROTEIN UA (BEAKER) (test code = Negative Negative 464) GLUCOSE UA (BEAKER) (test code = Negative Negative 365) KETONES UA (BEAKER) (test code = 20 mg/dL Negative A 371) BILIRUBIN UA (BEAKER) (test code = Negative Negative 462) BLOOD UA (BEAKER) (test code = 461) Moderate Negative A NITRITE UA (BEAKER) (test code = Negative Negative 465) LEUKOCYTE ESTERASE UA (BEAKER) (test Negative Negative code = 466) UROBILINOGEN UA (BEAKER) (test code < mg/dL 0.2-1.0 = 463) RBC UA (BEAKER) (test code = 519) 24 /HPF WBC UA (BEAKER) (test code = 520) 2 /HPF BACTERIA (BEAKER) (test code = 517) Rare MUCUS (BEAKER) (test code = 1574) Rare SOURCE(BEAKER) (test code = 2795) Video Technician ID - [auto]Video Technician ID - techRAD, WRIST, LEFT, COMPLETE (MIN 3 VIEWS) 2020-01-20 16:58:00Reason for exam:->TRAUMAFINAL REPORT TECHNIQUE: Minimum three views of the left hand. Minimum three views of the left wrist. INDICATION: TRAUMA. COMPARISON: None. FINDINGS:There is diffuse soft tissue swelling of the wrist which is worst over the carpal bones. There is remodeling of the distal radius, likely due to a prior fracture which has healed. A well ossified bone fragment adjacent to the distal ulna which could be a phlebolith. IMPRESSION: Marked soft tissue swelling of the left wrist without a definite acute underlying fracture. There is an old, healed distal radial fracture. Signed: Nancy De Guzman Verified Date/Time: 01/20/2020 16:58:33 Reading Location: [facility] Diagnostic Imaging Reading Room [place] [address] RAD, HAND, 3 VIEWS, [id number] 16:58:00Reason for exam:->TRAUMAFINAL REPORT TECHNIQUE: Minimum three views of the left hand. Minimum three view s of the left wrist. INDICATION: TRAUMA. COMPARISON: None. FINDINGS:There is diffuse soft tissue swelling of the wrist which is worst over the carpal bones. There is remodeling of the distal radius, likely due to a prior fracture which has healed. A well ossified bone fragment adjacent to the distal ulna which could be a phlebolith. IMPRESSION: Marked soft tissue swelling of the left wrist without a definite acute underlying fracture. There is an old, healed distal radial fracture. Signed: Nancy De Guzman Verified Date/Time: 01/20/2020 16:58:33 Reading Location: [facility] Diagnostic Imaging [place] [address] RAD, PELVIS, 1 OR 2 [id number] 16:53:00Reason for exam:->Trauma, pelvic PainShould this be performed at the bedside?->NoFINAL REPORT TECHNIQUE: One or two views of the pelvis. INDICATION: Trauma, pelvic Pain. COMPARISON: None. FINDINGS:There is contrast in the bladder, likely from a prior CT No fracture or dislocation. The partially visualized bowel gas pattern is normal. IMPRESSION:No acute osseous abnormalities of the pelvis. There is contrast in the bladder, likely from a prior CT. Signed: Nancy De Guzman Verified Date/Time: 01/20/2020 16:53:00 Reading Location: [facility] Diagnostic Imaging [place] [address] RAD, FOOT, MIN 3 VIEWS, [id number] 16:51:00Reason for exam:->TRAUMAShould this be performed at the bedside?->NoFINAL REPORT TECHNIQUE: Minimum three views of the left foot. Minimum three views of the left ankle INDICATION: TRAUMA. COMPARISON: None. FINDINGS:Acute, mildly displaced fracturesof the heads of the second, third, and fourth metatarsals.There is likely a small fracture of the lateral talus which minimally displaced. There appears to be an accessory ossicle of the cuboid. IMPRESSION: Acute, mildly displaced fractures of the heads of the second, third, and fourth metatarsals. There is likely a fracture through the lateral talus which is minimally displaced. Signed: Nancy De Guzman Verified Date/Time: 01/20/2020 16:51:16 Reading Location: [facility] [place] [address] RAD, ANKLE, MIN 3 VIEWS, [id number] 16:51:00Reason for exam:- >TRAUMAShould this be performed at the bedside?->NoFINAL REPORT TECHNIQUE: Minimum three views of the left foot. Minimum three view s of the left ankle INDICATION: TRAUMA. COMPARISON: None. FINDINGS:Acute, mildly displaced fracturesof the heads of the second, third, and fourth metatarsals.There is likely a small fracture of the lateral talus which minimally displaced. There appears to be an accessory ossicle of the cuboid. IMPRESSION: Acute, mildly displaced fractures of the heads of the second, third, and fourth metatarsals. There is likely a fracture through the lateral talus which is minimally displaced. Signed: Nancy De Guzman Verified Date/Time: 01/20/2020 16:51:16 Reading Location: [facility] Diagnostic Imaging [place] [address] RAD, CHEST, 1 VIEW, NON [id number] 16:47:00Reason for exam:- >TRAUMAShould this be performed at the bedside?->NoFINAL REPORT TECHNIQUE: Frontal view of the chest. INDICATION: TRAUMA. COMPARISO N: None. FINDINGS: LINES/TUBES: None. LUNGS: The lungs are well inflated and clear. No consolidationor pulmonary edema. PLEURA: No pneumothorax or significant pleural effusion. HEART AND MEDIASTINUM: The cardiomediastinal silhouette is within normal limits. SOFT TISSUES AND BONES: Unremarkable. IMPRES TRINH:No acute intrathoracic abnormality. Signed: Nancy De Guzman Verified Date/Time: 01/20/2020 16:47:59 Reading Location: [facility] Diagnostic Imaging Reading Room [place] [address] Electronically signedby: NANCY DE GUZMAN MD on 01/20/2020 04:47 PMRAD, FOOT, MIN 3 VIEWS, [id number] 16:46:00Reason for exam:- >TRAUMAShould this be performed at the bedside?->NoFINAL REPORT TECHNIQUE: Minimal three views of the right foot. Minimum three vie ws of the right ankle INDICATION: TRAUMA. COMPARISON: None. FINDINGS:Soft tissue swelling of the ankle. There appears to be an avulsion of the proximal fifth metatarsal. There is slight irregularity ofthe medial cuneiforms. Old avulsion of the medial malleolus. There is likely an old, healed avulsionof the medial malleolus. There are likely osteophytes of the midfoot. IMPRESSION: Acute avulsion of the proximal fifth metatarsal. There is questionable irregularity at the medial cuneiform. Please correlate for point tenderness in this location. If there is point tenderness, consider a CT. Diffuse soft tissues filling of the foot and ankle. Signed: Nancy De Guzman Verified Date/Time: 01/20/2020 1 6:46:59 Reading Location: [facility] Diagnostic Imaging Reading Room - [place] [address] Electronically signedby: NANCY DE GUZMAN MD on 01/20/2020 04:46 PMRAD, ANKLE, MIN 3 VIEWS, [id number] 16:46:00Reason for exam:->TRAUMAShould this be performed at the bedside?->NoFINAL REPORT TECHNIQUE: Minimal three views of the right foot. Minimum three views of the right ankle INDICATION: TRAUMA. COMPARISON: None. FINDINGS:Soft tissue swelling of the ankl e. There appears to be an avulsion of the proximal fifth metatarsal. There is slight irregularity ofthe medial cuneiforms. Old avulsion of the medial malleolus. There is likely an old, healed avulsionof the medial malleolus. There are likely osteophytes of the midfoot. IMPRESSION: Acute avulsion of the proximal fifth metatarsal. There is questionable irregularity at the medial cuneiform. Please correlate for point tenderness in this location. If there is point tenderness, consider a CT. Diffuse soft tissues filling of the foot and ankle. Signed: Nancy De Guzman MDReport Verified Date/Time: 01/20/2020 16:46:59 Reading Location: [facility] Diagnostic Imaging Reading Room - [place] [address] Electronically signedby: NANCY DE GUZMAN MD on 01/20/2020 04:46 PMCT, BRAIN, WITHOUT [id number] 15:30:00Reason for exam:->TRAUMAWhat is the patient's sedation requirement?->No SedationFINAL REPORT CT, BRAIN, WITHOUT CONTRAST, CT, SPINE, CERVICAL, WO CONTRAST, CT,MAXILLOFACIAL AREA, WO CONTRAST INDICATION: TRAUMAfall 30 ft, multitrauma TECHNIQUE: Contiguous noncontrast axial images of the head and cervical spine are obtained. Computer reformatted coronal and sagittal images are also provided. Axial images are available in both bone and soft tissue algorithm. Dedicated CT of the face with multiplanar reconstructions in soft tissue and bone algorithms. DOSE REDUCTION: Dose modulation, iterative reconstruction, and/or weight-based adjustment of the mA/kV was utilized to reduce the radiation dose to as low as reasonably achievable. COMPARISON: CT head 06/13/2019 FINDINGS: FACE:Maxilla: Intact. Pterygoid plates are intact.Paranasal sinuses: No evidence of sinusi tis.Mastoid air cells and middle ear cavities: Clear.Nasal bones: Intact nasal bones and septum. Mandible/dental structures: There is a mildly displaced oblique fracture of the left mandibular body with extensive surrounding soft tissue swelling and gas. The fracture line extends through the root of the left mandibular second bicuspid, which has collapsed laterally. There are additional fractures involving the bilateral mandibular rami, where the condylar processes are completely dislocated from theglenoid fossae and displaced anteriorly. Orbits: Orbital roof, floor, medial and lateral panchal intact.Globes: Globes and extraocular muscles intact.Retrobulbar spaces: Unremarkable. HEAD:Intracranial: No intracranial hemorrhage or abnormal extra-axial collection. No evidence of acute territorial infarct. No mass effect. No hydrocephalus. Osseous structures: No calvarial fracture. No suspicious lesion. CERVICAL SPINE:Alignment: Normal. C1 and C2 lateral masses are congruent. Vertebrae: No acute fracture. No aggressive osseous lesion. Spondylosis: No high-grade canal or foraminal stenosis. Soft tissues: No prevertebral soft tissue swelling. Visualized lung apices are clear. IMPRESSION: 1.Comminuted mandibular fracture. An oblique fracture line extends through the left mandibular body with involvement of the second bicuspid root causing dislocation of the tooth. Bilateral mandibular ramus fractureswith TMJ dislocation and anterior displacement of the bilateral condylar processes.2.No acute intracranial hemorrhage.3.No acute cervical fracture or traumatic malalignment. Signed: Margo Stanley [facility] Verified Date/Time: 01/20/2020 15:30:24 Electronically signed by: MARGO STANLEY MD on01/20/2020 03:30 PMCT, SPINE, CERVICAL, WO [id number] 15:30:00Reason for exam:->TRAUMAWhat is the patient's sedation requirement?- >No SedationFINAL REPORT CT, BRAIN, WITHOUT CONTRAST, CT, SPINE, CERVICAL, WO CONTRAST, CT,MAXILLOFACIAL AREA, WO CONTRAST INDICATION: TRAUMAfall 30 ft, multitrauma TECHNIQUE: Contiguous noncontrast axial images of the head and cervical spine are obtained. Computer reformatted coronal and sag ittal images are also provided. Axial images are available in both bone and soft tissue algorithm. Dedicated CT of the face with multiplanar reconstructions in soft tissue and bone algorithms. DOSE REDUCTION: Dose modulation, iterative reconstruction, and/or weight-based adjustment of the mA/kV was utilized to reduce the radiation dose to as low as reasonably achievable. COMPARISON: CT head 06/13/2019 FINDINGS: FACE:Maxilla: Intact. Pterygoid plates are intact.Paranasal sinuses: No evidence of sinusitis.Mastoid air cells and middle ear cavities: Clear.Nasal bones: Intact nasal bones and septum. Mandible/dental structures: There is a mildly displaced oblique fracture of the left mandibular body with extensive surrounding soft tissue swelling and gas. The fracture line extends through the root of the left mandibular second bicuspid, which has collapsed laterally. There are additional fractures involving the bilateral mandibular rami, where the condylar processes are completely dislocated from the glenoid fossae and displaced anteriorly. Orbits: Orbital roof, floor, medial and lateral panchal intact.Globes: Globes and extraocular muscles intact.Retrobulbar spaces: Unremarkable. HEAD:Intracranial: No intracranial hemorrhage or abnormal extra-axial collection. No evidence of acute territorial infarct. No mass effect. No hydrocephalus. Osseous structures: No calvarial fracture. No suspicious lesion. CERVICAL SPINE:Alignment: Normal. C1 and C2 lateral masses are congruent. Vertebrae: No acute fracture. No aggressive osseous lesion. Spondylosis: No high-grade canal or foraminal stenosis. Soft tissues: No prevertebral soft tissue swelling. Visualized lung apices are clear. IMPRESSION: 1.Comminuted mandibular fracture. An oblique fracture line extends through the left mandibular body with involvement of the second bicuspid root causing dislocation of the tooth. Bilateral mandibular ramus fractureswith TMJ dislocation and anterior displacement of the bilateral condylar processes.2.No acute intracranial hemorrhage.3.No acute cervical fracture or traumatic malalignment. Signed: Margo Stanley MDReport Verified Date/Time: 01/20/2020 15:30:24 Electronically signed by: MARGO STANLEY MD on01/20/2020 03:30 PMCT, MAXILLOFACIAL AREA, WO [id number] 15:30:00Reason for exam:- >TRAUMAWhat is the patient's sedation requirement?->No SedationFINAL REPORT CT, BRAIN, WITHOUT CONTRAST, CT, SPINE, CERVICAL, WO CONTRAST, CT,MAXILLOFACIAL AREA, WO CONTRAST INDICATION: TRAUMAfall 30 ft, multitrauma TECHNIQUE: Contiguous noncontrast axial images of the head and cervical spine are obtained. Computer reformatted coronal and sagittal images are also provided. Axial images are available in both bone and soft tissue algorithm. Dedicated CT of the face with multiplanar reconstructions in soft tissue and bone algorithms. DOSE REDUCTION: Dose modulation, iterative reconstruction, and/or weight-based adjustment of the mA/kV was utilized to reduce the radiation dose to as low as reasonably achievable. COMPARISON: CT head 06/13/2019 FINDINGS: FACE:Maxilla: Intact. Pterygoid plates are intact.Paranasal sinuses: No evidence of sinusitis.Mastoid air cells and middle ear cavities: Clear.Nasal bones: Intact nasal bones and septum. Mandible/dental structures: There is a mildly displaced oblique fracture of the left mandibular body with extensive surrounding soft tissue swelling and gas. The fracture line extends through the root of the left mandibular second bicuspid, which has collapsed laterally. There are additional fractures involving the bilateral mandibular rami, where the condylar processes are completely dislocated from the glenoid fossae and displaced anteriorly. Orbits: Orbital roof, floor, medial and lateral panchal intact.Globes: Globes and extraocular muscles intact.Retrobulbar spaces: Unremarkable. HEAD:Intracranial: No intracranial hemorrhage or abnormal extra-axial collection. No evidence of acute territorial infarct. No mass effect. No hydrocephalus. Osseous structures: No calvarial fracture. No suspicious lesion. CERVICAL SPINE:Alignment: Normal. C1 and C2 lateral masses are congruent. Vertebrae: No acute fracture. No aggressive osseous lesion. Spondylosis: No high-grade canal or foraminal stenosis. Soft tissues: No prevertebral soft tissue swelling. Visualized lung apices are clear. IMPRESSION: 1.Comminuted mandibular fracture. An oblique fracture line extends through the left mandibular body with involvement of the second bicuspid root causing dislocation of the tooth. Bilateral mandibular ramus fractureswith TMJ dislocation and anterior displacement of the bilateral condylar processes.2.No acute intracranial hemorrhage.3.No acute cervical fracture or traumatic malalignment. Signed: [facility] Verified Date/Time: 01/20/2020 15:30:24 Electronically signed by: MARGO STANLEY MD on01/20/2020 03:30 PMCOMPREHENSIVE METABOLIC [id number] 15:16:00 Test Item Value Reference Range Interpretation Comments TOTAL PROTEIN 6.8 gm/dL 6.0-8.5 (BEAKER) (test code = 770) ALBUMIN (BEAKER) 4.0 g/dL 3.5-5.0 (test code = 1145) ALKALINE PHOSPHATASE 62 U/L 30-115 (BEAKER) (test code = 346) BILIRUBIN TOTAL 1.0 mg/dL 0.1-1.3 (BEAKER) (test code = 377) SODIUM (BEAKER) (test 134 meq/L 135-148 L code = 381) POTASSIUM (BEAKER) 3.7 meq/L 3.5-5.5 (test code = 379) CHLORIDE (BEAKER) 99 meq/L 98-106 (test code = 382) CO2 (BEAKER) (test 26 meq/L 20-31 code = 355) BLOOD UREA NITROGEN 10 mg/dL 10-26 (BEAKER) (test code = 354) CREATININE (BEAKER) 0.95 mg/dL 0.50-1.20 (test code = 358) GLUCOSE RANDOM 127 mg/dL 70-110 H (BEAKER) (test code = 652) CALCIUM (BEAKER) 8.8 mg/dL 8.5-10.5 (test code = 697) AST (SGOT) (BEAKER) 20 U/L 5-40 (test code = 353) ALT (SGPT) (BEAKER) 15 U/L 6-50 (test code = 347) EGFR (BEAKER) (test 90 mL/min/1.73 ESTIMA NATHALY GFR IS code = 1092) sq m NOT ACCURATE CREATININE CLEARANCE IN PREDICTING GLOMERULAR FILTRATION RATE . ESTIMATED GFR I S NOT APPLICABLE FOR DIALYSIS PATIEN TS. Video Technician ID - [id number] W/PLT COUNT & AUTO [id number] 14:53:00 Test Item Value Reference Range Interpretation Comments WHITE BLOOD CELL COUNT (BEAKER) 16.8 K/ L 4.0-10.0 H (test code = 775) RED BLOOD CELL COUNT (BEAKER) 4.84 M/ L 4.20-5.80 (test code = 761) HEMOGLOBIN (BEAKER) (test code = 14.4 GM/DL 13.0-16.8 410) HEMATOCRIT (BEAKER) (test code = 43.4 % 36.0-50.0 411) MEAN CORPUSCULAR VOLUME (BEAKER) 89.7 fL 82.0-99.0 (test code = 753) MEAN CORPUSCULAR HEMOGLOBIN 29.8 pg 27.0-33.0 (BEAKER) (test code = 751) MEAN CORPUSCULAR HEMOGLOBIN CONC 33.2 GM/DL 32.0-36.0 (BEAKER) (test code = 752) RED CELL DISTRIBUTION WIDTH 12.6 % 12.0-15.0 (BEAKER) (test code = 412) PLATELET COUNT (BEAKER) (test 246 K/CU MM 150-430 code = 756) MEAN PLATELET VOLUME (BEAKER) 10.3 fL 6.0-11.5 (test code = 754) NUCLEATED RED BLOOD CELLS 0 /100 WBC 0-0 (BEAKER) (test code = 413) NEUTROPHILS RELATIVE PERCENT 74 % (BEAKER) (test code = 429) LYMPHOCYTES RELATIVE PERCENT 15 % (BEAKER) (test code = 430) MONOCYTES RELATIVE PERCENT 10 % (BEAKER) (test code = 431) EOSINOPHILS RELATIVE PERCENT 1 % (BEAKER) (test code = 432) BASOPHILS RELATIVE PERCENT 1 % (BEAKER) (test code = 437) NEUTROPHILS ABSOLUTE COUNT 12.45 K/ L 1.80-8.00 H (BEAKER) (test code = 670) LYMPHOCYTES ABSOLUTE COUNT 2.45 K/ L 1.48-4.50 (BEAKER) (test code = 414) MONOCYTES ABSOLUTE COUNT (BEAKER) 1.61 K/ L 0.00-1.30 H (test code = 415) EOSINOPHILS ABSOLUTE COUNT 0.12 K/ L 0.00-0.50 (BEAKER) (test code = 416) BASOPHILS ABSOLUTE COUNT (BEAKER) 0.08 K/ L 0.00-0.20 (test code = 417) IMMATURE GRANULOCYTES-RELATIVE 0 % 0-0 PERCENT (BEAKER) (test code = 2801) - XR FOOT 2 VIEWS [id number] 16:37:00 FAX: Reza Cross MD [phone] [place]: E St: REG Patient Name: ARELI BACA Unit No: [id number] EXAMS: CPT CODE: [id number] XR [place] [address] [place] [address] LOCATION: [facility] EXAM: - XR FOOT 2 VIEWS RT HISTORY: fall, pain TECHNIQUE: Frontal and lateral views right foot COMPARISON: None. FINDINGS: No evidence of acute fracture or dislocation. Joint spaces within normal limits. Localized soft tissue swelling is present at the dorsal foot. A punctate calcification is noted along the distal margin of one of the cuneiforms. This is nonspecific, however a tiny chip fracture cannot be excluded. Bone marrow mineralization ishomogeneous. IMPRESSION: Dorsal soft tissue swelling. Punctate calcific density along the distal margin of one of the cuneiforms, seen only on the lateral view. This is nonspecific, but should be correlated to exclude a a small chip fracture. [id number] Reported and signed by: Ml Alcala MD CC: Reza Stacy MD Dictated Date/Time: 01/19/2020 (163 7)Technologist: Nevaeh Ashley Transcribed Date/Time: 01/19/2020 (1637) By: [email or web address] Orig Print D/T:S: 01/19/2020 (1640) [facility] NAME: ARELI BACA [address] [place] [address] Bl PHYS: Reza Hooker MD [place], [place] [address] : 1985 AGE: 34 SEX: M LOC: EDWIGE PHONE #: [phone] EXAM DATE: 01/19/2020 STATUS: REG ER FAX #: [phone] RAD NO: DC Dt: PAGE 1 Signed Report- CT MAXIFAC W/O [id number] 15:04:00 Patient Name: ARELI BACA Unit No: [id number] EXAMS: CPT CODE: [id number] CT MAXIFAC W/O CONTRAST [address] CT facial bones INDICATION: Trauma LOCATION: T18 Direct axial CT images of the facial bones were obtained at 2.5 mm slice thickness, with coronal and sagittal reconstruction performed from the original data set. 3-D images also provided for interpretation. Up to date CT and radiation dose reduction techniques were utilized. Automatic exposure control was also used. There are fractures of the neck of both and tibial condyles which are displaced and rotated medially by one shaft width. There is bilateral anterior dislocation of the mandible. This also a nondisplaced fracture through the anterior mandible, just left lateral to midline. There is gas in the soft tissues deep to the mandible on the left, and to lesser extent on the right. Zygomatic arch, maxilla, nasal bone, and panchal and floors of the orbits are intact. IMPRESSION: 1. The mandible is dislocated anteriorly with fractureof both mandibular condyles. 2. There is also a nondisplaced fracture of the anterior mandible just left lateral to midline. 3. No other facial bone fracture identified. at 1504 Reported and signed by: Joseph Monsivais D.O. CC:Reza Stacy MD Dictated Date/Time: 01/19/2020 (3792) Technologist: Radha Soler CTDI: 20.07 DLP: 337.47 Trnscrpt: 01/19/2020 (1504) Ramiro GAB Cooper NAME: ARELI BACA [address] [place] [address] PHYS: Reza [place] [address] : 1985 AGE: 34 SEX: M LOC: B.ERS PHONE #: [phone] EXAM DATE: 01/19/2020 STATUS: REG ER FAX #: [phone] RAD #: D/C DT PAGE 1 Signed Report Patient Name: ARELI BACA Unit No: [id number] EXAMS: CPT CODE: [id number] CT MAXIFAC W/O CONTRAST 65812 (Continued) Orig Print D/T: S: 01/19/2020 (1507) GAB Cooper NAME: ARELI BACA [address] [place] [address] PHYS: Reza [place]er [place], [place] [address] : 1985 AGE: 34 SEX: M LOC: B.ERS PHONE #: [phone] EXAM DATE: 01/19/2020 STATUS: REG ER FAX #: [phone] RAD #: D/C DT PAGE 2 Signed Report- CT ABD PELVIS [id number] 15:00:00 Patient Name: ARELI BACA Unit No: [id number] EXAMS: CPT CODE: [id number] CT ABD PELVIS W/CONT 64489 CT CHEST with CONTRAST HISTORY: 15 ft fall, pain TECHNIQUE: Axial CT images were obtainedthrough the chest with intravenous contrast and displayed in soft tissue and lung windows. Coronal and sagittal reformatted images were also created from the data set. One or more of the following dosereduction techniques were used: Automated exposure control, adjustment of the mA and/or kV accordingto patient size, and/or iterative reconstruction. COMPARISON: None FINDINGS: The lungs are clear. Nopleural effusion or pneumothorax. There is no significant mediastinal or hilar adenopathy. The aortaand mediastinal structures show no other significant abnormalities. No acute osseous abnormalities. The visualized upper abdominal structures are within normal limits. IMPRESSION: No significant chest a bnormalities. CT OF THE ABDOMEN AND PELVIS WITH and WITHOUT CONTRAST Location code:J9 CLINICAL HISTORY:15 ft fall, pain COMPARISON: TECHNIQUE:Multiple transaxial images of the abdomen and pelvis were obtained before and after 100 mL of Isovue 300 contrast and oral contrast. Coronal reformatted images were obtained. CT imaging performed at this location utilizes radiation dose optimization techniques which include one or more of the following: -Automated exposure control -Adjustment of the mA and/or kV according to patient size -Use of iterative reconstruction technique CT Radiation Dose DLP mGy-cmFINDINGS: Abdomen [facility] NAME: ARELI BACA [address] [place] [address] PHYS: Reza Hooker [place], [place] [address] : 1985 AGE: 34 SEX: M LOC: BSARINA PHONE#: [phone] EXAM DATE: 01/19/2020 STATUS: REG FAX #: [phone] RAD #: D/C DT PAGE 1 Signed Report (CONTINUED) Patient Name: ARELI BACA Unit No: [id number] EXAMS: CPT CODE: [id number] CT ABD PELVIS W/CONT 48918 (Continued) The visualized structures of the lower thorax are unremarkable. The liver, spleen, pancreas, gallbladder, adrenal glands, and both kidneys are within normal limits. Focal fatty deposition is noted at the medial right hepatic lobe. Unopacified loops of large and small bowel are within normal limits. There is no evidence for obstruction or abnormal mural thickening. Normal caliber appendix is seen in the right lower quadrant. No mesenteric or retroperitoneal lymphadenopathy is found. There is no free intraperitoneal air or fluid. Visualized abdominal aorta is within normal limits. FINDINGS: Pelvis Visualized intra-pelvic contents are within normal limits. The urinary bladder is unremarkable. There is no free pelvic fluid. No acute fracture. IMPRESSION: No acute findings. at 1500 Reported and signed by: Marco Loera M.D. CC: Reza Stacy MD Dictated Date/Time: 01/19/2020 (1500) Technologist: Radha Soler CTDI: 10.28 DLP: 522.77 Trnscrpt: 01/19/2020 (1500) [email or web address] GAB Cooper NAME: ARELI BACA[address] PHYS: Reza [place]er [place] [address] : 1985 AGE: 34 SEX: M LOC: HarshadERS PHONE #: [phone] EXAM DATE: 01/19/2020 STATUS: REG ER FAX #: [phone] RAD #: D/C DT PAGE 2 Signed Report Patient Name: ARELI BACA UnitNo: [id number] EXAMS: CPT CODE: [id number] CT ABD PELVIS W/CONT 26118 (Continued) Orig Print D/T: S: 01/19/2020 (1504) GAB Cooper NAME: ARELI BACA[address] PHYS: Reza [place]er [place] [address] : 1985 AGE: 34 SEX: M LOC: HarshadERS PHONE#: [phone] EXAM DATE: 01/19/2020 STATUS: REG ER FAX #: [phone] RAD #: D/C DT PAGE 3 Signed Report- CT CHEST [id number] 15:00:00 Patient Name: ARELI BACA Unit No: [id number] EXAMS: CPT CODE: [id number] CT CHEST W/CONTRAST 57442 CT CHEST with CONTRAST HISTORY: 15 ft fall, pain TECHNIQUE: Axial CT images were obtained through the chest with intravenous contrast and displayed in soft tissue and lung windows. Coronal and sagittal reformatted images were also created from the data set. One or more of the following dose reduction techniques were used: Automated exposure control, adjustment of the mA and/or kV according to patient size, and/or iterative reconstruction. COMPARISON: None FINDINGS: The lungs are clear. No pleural effusion or pneumothorax. There is no significant mediastinal or hilar adenopathy. The aorta and mediastinal structures show no other significant abnormalities. No acute osseous abnormalities. The visualized upper abdominal structures are within normal limits. IMPRESSION: No significant chest ab normalities. CT OF THE ABDOMEN AND PELVIS WITH and WITHOUT CONTRAST Location code:J9 CLINICAL HISTORY:15 ft fall, pain COMPARISON: TECHNIQUE:Multiple transaxial images of the abdomen and pelvis were obtained before and after 100 mL of Isovue 300 contrast and oral contrast. Coronal reformatted images were obtained. CT imaging performed at this location utilizes radiation dose optimization techniques which include one or more of the following: -Automated exposure control -Adjustment of the mA and/or kV according to patient size -Use of iterative reconstruction technique CT Radiation Dose DLP mGy-cm FINDINGS: Abdomen [facility] NAME: ARELI BACA [address] [place] [address] PHYS: Reza [place]er [place] [address] : 1985 AGE: 34 SEX: M LOC: EDWIGE PHONE #: [phone] EXAM DATE: 01/19/2020 STATUS: REG ER FAX #: [phone] RAD #: D/C DT PAGE 1 Signed Report (CONTINUED) Patient Name: ARELI BACA Unit No: [id number] EXAMS: CPT CODE: [id number] CT CHEST W/CONTRAST 78191 (Continued) The visualized structures of the lower thorax are unremarkable.The liver, spleen, pancreas, gallbladder, adrenal glands, and both kidneys are within normal limits.Focal fatty deposition is noted at the medial right hepatic lobe. Unopacified loops of large and small bowel are within normal limits. There is no evidence for obstruction or abnormal mural thickening.Normal caliber appendix is seen in the right lower quadrant. No mesenteric or retroperitoneal lymphadenopathy is found. There is no free intraperitoneal air or fluid. Visualized abdominal aorta is within normal limits. FINDINGS: Pelvis Visualized intra-pelvic contents are within normal limits. The urinary bladder is unremarkable. There is no free pelvic fluid. No acute fracture. IMPRESSION: No acute findings. at 1500 Reported and signed by: Marco Loera M.D. CC: Reza Stacy MD Dictated Date/Time: 01/19/2020 (1500) Technologist: Radha Soler CTDI: 9.30 DLP: 515.72 Trnscrpt: 01/19/2020 (1500) [email or web address].[email or web address] [facility] NAME: ARELI BACA[address] PHYS: Reza Hooker MD [place] [address] : 1985 AGE: 34 SEX: M LOC: B.ERS PHONE #: [phone] EXAM DATE: 01/19/2020 STATUS: REG ER FAX #: [phone] RAD #: D/C DT PAGE 2 Signed Report Patient Name: ARELI ABCA Unit No: [id number] EXAMS: CPT CODE: [id number] CT CHEST W/CONTRAST 58178 (Continued) Orig Print D/T: S: 01/19/2020 (1504) [facility] NAME: ARELI BACA[address] PHYS: Reza Hooker [place] [address] : 1985 AGE: 34 SEX: M LOC: B.ERS PHONE #: [phone] EXAM DATE: 01/19/2020 STATUS: REG ER FAX #: [phone] RAD #: D/C DT PAGE 3 Signed Report- CT C-SPINE W/O [id number] 14:56:00 Patient Name: ARELI BACA Unit No: [id number] EXAMS: CPT CODE: [id number] CT C-SPINE W/O CONT 99060 REASON FOR EXAM: Neck pain, trauma after fall from tree CT cervical spine, unenhanced with reformatted sagittal and coronal images. COMPARISON: None All studies use automated exposure control, iterative reconstruction technique, and/or adjustment of mA and/or kV according to patient size for optimum radiation dose reduction The study is performed from above the dens through the lung apices. The vertebral bodies are free of fracture and have symmetric appearance. . The soft tissue window settings do not reveal apical pneumothorax or paraspinal hematoma. Reformatted images show good alignment and no fractures can be identified, either. Of note on the coronal images are bilateral fractures of the heads/necks of the mandible with anterior medial displacement, soft tissue air/edema/hemorrhage noted as well.. IMPRESSION: No evidence of C-spine fracture. Bilateral mandibular head and neck fractures with adjacent soft tissue injury.. Location: U19 at 1456 Reported and signed by: Sixto Roque M.D CC: Reza Stacy MD Dictated Date/Time: 01/19/2020 (1455) Technologist: Radha Soler CTDI: 9.63 DLP: 203.26 Trnscrpt: 01/19/2020 (1456) [email or web address] [facility] NAME: ARELI BACA [address] [place] [address] PHYS: Reza [place]vers[place], [place] [address] : 1985 AGE: 34 SEX: M LOC: B.ERS PHONE #: [phone] EXAM DATE: 01/19/2020 STATUS: REG ER FAX #: [phone] RAD #: D/C DT PAGE 1 Signed Report Patient Name: ARELI BACA Unit No: [id number] EXAMS: CPT CODE: [id number] CT C-SPINE W/O CONT 78409 (Continued) Orig Print D/T: S: 01/19/2020 (1513) GAB Cooper NAME: ARELI BACA [address] PHYS: [place] [address] : 1985 AGE: 34 SEX: M LOC: HarshadERS PHONE #: [phone] EXAM DATE: 01/19/2020 STATUS: REG ER FAX #: [phone] RAD #: D/C DT PAGE 2 Signed Report- CT L-SPINE W/O [id number] 14:56:00 Patient Name: ARELI BACA Unit No: [id number] EXAMS: CPT CODE: [id number] CT L-SPINE W/O CONTRAST 36174 CT of thoracic and lumbar spine without contrast Location Code: B2 Clinical history: Back pain COMPARISON: None. COMMENTS: Helical CT of the thoracic and lumbar spine was performed and submitted as thin section axial, coronal, and sagittally oriented images. CT imaging performed at [facility] utilizes radiation dose optimization techniques which include one or more of the following:-Automated exposure control -Adjustment of the mA and/or kV according to patient size -Use of iterative reconstruction technique CT Radiation Dose DLP mGy-cm FINDINGS: There is no acute fracture or malalignment of the thoracic and lumbar spine. The soft tissues are unremarkable. IMPRESSION: No acute abnormality. at 1456 Reported and signedby: Marco Loera M.D. CC: Reza Stacy MD Dictated Date/Time: 01/19/2020 (1456) Technologist: Radha Soler CTDI: 0 DLP: 0 Trnscrpt: 01/19/2020 (3702) [email or web address] [facility] NAME: ARELI BACA [address] PHYS: [place] [address] : 1985 AGE: 34 SEX:M LOC: B.ERS PHONE #: [phone] EXAM DATE: 01/19/2020 STATUS: REG ER FAX #: [phone] RAD #: D/C DT PAGE 1 Signed Report Patient Name: ARELI BACA Unit No: [id number] EXAMS: CPT CODE: [id number] CT L-SPINE W/O CONTRAST 28702 (Continued) Orig Print D/T: S: 01/19/2020 (1500) GAB Cooper NAME: ARELI BACA[address] PHYS: Reza Hooker [place], [place] [address] : 1985 AGE: 34 SEX: M LOC: B.ERS PHONE #: [phone] EXAM DATE: 01/19/2020 STATUS: REG ER FAX #: [phone] RAD #: D/C DT PAGE 2 Signed Report- CT T-SPINE W/O [id number] 14:56:00 Patient Name: ARELI BACA Unit No: [id number] EXAMS: CPT CODE: [id number] CT T-SPINE W/O CONTRAST 64114 CT of thoracic and lumbar spine without contrast Location Code: B2 Clinical history: Back pain COMPARISON: None. COMMENTS: Helical CT of the thoracic and lumbar spine was performed and submitted as thin section axial, coronal, and sagittally oriented images. CT imaging performed at this location utilizes radiation dose optimization techniques which include one or more of the following:-Automated exposure control -Adjustment of the mA and/or kV according to patient size -Use of iterative reconstruction technique CT Radiation Dose DLP mGy-cm FINDINGS: There is no acute fracture or malalignment of the thoracic and lumbar spine. The soft tissues are unremarkable. IMPRESSION: No acute abnormality. at 1456 Reported and signed by: Marco Loera M.D. CC: Reza Stacy MD Dictated Date/Time: 01/19/2020 (2666) Technologist: Radha Soler CTDI: 0 DLP: 0 Trnscrpt: 01/19/2020 (1456) [email or web address] [facility] NAME: ARELI BACA [address] [place] [address] PHYS: Reza Hooker [place], [place] [address] : 1985 AGE: 34 SEX: M LOC: EDWIGE PHONE #: [phone] EXAM DATE: 01/19/2020 STATUS: REG ER FAX #: [phone] RAD #: D/C DT PAGE 1 Signed Report Patient Name: ARELI BACA Unit No: [id number] EXAMS: CPT CODE: [id number] CT T-SPINE W/O CONTRAST 92839 (Continued) Orig Print D/T: S: 01/19/2020 (1500) [facility] NAME: ARELI BACA [address] [place] [address] PHYS: Reza [place], [place] [address] : 1985 AGE: 34 SEX: M LOC: EDWIGE PHONE #: [phone] EXAM DATE: 01/19/2020 STATUS: REG ER FAX #: [phone] RAD #: D/C DT PAGE 2 Signed Report- CT HEAD/BRAIN W/O [id number] 14:49:00 Patient Name: ARELI BACA Unit No: [id number] EXAMS: CPT CODE: [id number] CT HEAD/BRAIN W/O CONT [address]5743 CT head without contrast INDICATION:Fall, headache LOCATION: T 18 CT of the head was performed without contrast, utilizing standard protocol, at 5mm slice thickness. Up to date CT and radiation dose reduction techniques were utilized. Automatic exposure control was also used. The ventricles are normal in size and configuration. No abnormal intra-axial or extra-axial fluid collection is pr esent. There is no midline shift or mass effect. The osuna-white junction is well visualized. There is no evidence of edema, hemorrhage, or acute infarct. The calvarium is intact on the bone windows. The visualized paranasal sinuses and mastoid air cells are clear. IMPRESSION: Negative noncontrast CT of the head. at 1449 Reportedand signed by: Joseph Monsivais D.O. CC: Reza Stacy MD Dictated Date/Time: 01/19/2020 (144) Technologist: Radha Soler CTDI: 51.43 DLP: 875.47 Trnscrpt: 01/19/2020 (2539) [facility] NAME: ARELI BACA [address] [place] [address] PHYS: [place] [address] : 1985 AGE: 34 SEX: M LOC: HarshadERS PHONE #: [phone] EXAM DATE: 01/19/2020 STATUS: REG ER FAX #: [phone] RAD #: D/C DT PAGE 1 Signed Report Patient Name: ARELI BACA Unit No: [id number] EXAMS: CPT CODE: [id number] CT HEAD/BRAIN W/O CONT 28360 (Continued) Orig Print D/T: S: 01/19/2020 (613) [facility] NAME: ARELI BACA [address] [place] [address] PHYS: Re[place] [address] : 1985 AGE: 34 SEX: M LOC: HarshadERS PHONE #: [phone] EXAM DATE: 01/19/2020 STATUS: REG ER FAX #: [phone] RAD #: D/C DT PAGE 2 Signed Report - XR FEMUR MIN 2 [id number] 14:18:00 FAX: Reza Cross MD [phone] [place]: E St: REG Patient Name: ARELI BACA Unit No: [id number] EXAMS: CPT CODE: [id number] XR FEMUR MIN 2 [place] [address] EXAM: Right femur, 2 views Right tibia-fibula, 2 views Right ankle, 3 views Location code:J9 HISTORY: ankle pain COMPARISON: None available FINDINGS: There is no acute fracture or dislocation. the soft tissues are unremarkable.. IMPRESSION: No acute findings. at 1418 Reported and signed by: Marco Loera M.D. CC: Reza Stacy MD Dictated Date/Time: 01/19/2020 (1417)Technologist: Micaela Cowan; Sarah Stanford Transcribed Date/Time: 01/19/2020 (1417) By: [email or web address] Orig Print D/T: S: 01/19/2020 (1421) GAB Cooper NAME: ARELI BACA [address] [place] [address] PHYS: Reza [place]er [place], [place] [address] : 1985 AGE: 34 SEX: M LOC: Eduarda.[facility] PHONE #: [phone] EXAM DATE: 01/19/2020 STATUS: REG ER FAX #: [phone] RAD NO: DC Dt: PAGE 1 Signed Report- XR TIBIA/FIBULA 2 V [id number] 14:18:00 FAX: Reza Cross MD [phone] [place]: St: REG Patient Name: ARELI BACA Unit No: [id number] EXAMS: CPT CODE: [id number] XR TIBIA/FIBULA 2 [place] [address] EXAM: Right femur, 2 views Right tibia-fibula, 2 views Right ankle, 3 views Location code:J9 HISTORY: ankle pain COMPARISON: None available FINDINGS: There is no acute fracture or dislocation. the soft tissues are unremarkable.. IMPRESSION: No acute findings. at 1418 Reported and signed by: Porfirio Silva CC: Reza Stacy MD Dictated Date/Time: 01/19/2020 (1417)Technologist: Micaela Cowan; Sarah Stanford Transcribed Date/Time: 01/19/2020 (1417) By: [email or web address] Orig Print D/T: S: 01/19/2020 (6009) GAB Cooper NAME: ARELI BACA [address] [place] [address] PHYS: Reza [place]er [place], [place] [address] : 1985 AGE: 34 SEX: M LOC: EDWIGE PHONE #: [phone] EXAM DATE: 01/19/2020 STATUS: REG ER FAX #: [phone] RAD NO: DC Dt: PAGE 1 Signed Report- XR ANKLE 3 + V [id number] 14:18:00 FAX: Reza Cross MD [phone] [place]: St: REG Patient Name: ARELI BACA Unit No: [id number] EXAMS: CPT CODE: [id number] XR ANKLE 3 + V RT [address]91 EXAM: Right femur, 2 views Right tibia-fibula, 2 views Right ankle, 3 views Location code:J9 HISTORY: ankle pain COMPARISON: None available FINDINGS: There is no acute fracture or dislocation. the soft tissues are unremarkable.. IMPRESSION: No acute findings. at 1418 Reported and signed by: Marco Loera M.D. CC: Reza Stacy MD Dictated Date/Time: 01/19/2020 (8136)Technologist: Micaela Ponce Transcribed Date/Time: 01/19/2020 (7538) By: [email or web address] Orig Print D/T: S: 01/19/2020 (8173) GAB Cooper NAME: ARELI BACA [address] [place] [address] PHYS: Reza Hooker [place], [place] [address] : 1985 AGE: 34 SEX: M LOC: EDWIGE PHONE #: [phone] DATE: 01/19/2020 STATUS: REG ER FAX #: [phone] RAD NO: DC Dt: PAGE 1 Signed ReportPT AND [id number] 14:10:00 Test Item Value Reference Interpretation Comments Range PT PATIENT (test 12.6 SECONDS 9.4-12.5 H code = PTP) INTERNATIONAL 1.09 INR 0.88-1.13 N NORMAL RATIO (test Unit --------- code = INR) ---------Therap eutic range for INR i s dependent upon the situation.2.0-3 .0 Prophylaxis / v enous thromboembolism , Treatment of DV T, Acute myocardial infa rction stroke preventi on, Systemic emboli sm prevention in fibrillation3.0 -4.5 AMI recurrence prev ention, Systemic emboli sm prevention in p rosthetic heart 3.0-5.4 A LA mortality reduc tion THROMBOPLASTIN TIME 24.7 SECONDS 24-37.7 N THERAPEU TIC RANGE FOR PARTIAL (test code UNFRACTIO NATED HEPARIN = = PTT) 50.5-83.6 SEC T his test is not recommen ded to monitor low molecularweight heparin or danaparoid. Order LMWH test COLLECTION THROUGH LINES THAT HAVE BEEN PREVIOUSLY FLUS HEDWITH HEPARIN SHOULD BE AVOIDED DUE TO POSSIBLE HEPARINCONTAMIN ATION BASIC METABOLIC [id number] 14:04:00 Test Item Value Reference Range Interpretation Comments SODIUM (test code = 137.0 mmol/L 133-144 N NA) POTASSIUM (test code 3.4 mmol/L 3.5-5.1 L = K) CHLORIDE (test code 108 mmol/L 95-105 H = CL) CARBON DIOXIDE (test 23 mmol/L 21-32 N code = CO2) ANION GAP (test code 6.0 GAP calc 4.0-15.0 N = GAP) GLUCOSE (test code = 100 MG/DL 70-110 N GLU) BLOOD UREA NITROGEN 14 MG/DL 7-18 N (test code = BUN) CREATININE (test 1.14 MG/DL 0.55-1.30 N Results may be code = CREAT) depressed if patient is takingN-Acetylc yste ine (NAC) and Metamizole (Dipyrone). CALCIUM (test code = 9.1 MG/DL 8.5-10.1 N CA) INDEX HEMOLYSIS 2 TRACE 10-25 1 NORMAL (test code = MG Index/DL HEMINDEX) INDEX ICTERIC (test 1 NORMAL <2 MG 1 NORMAL code = ICTINDEX) Index/DL INDEX LIPEMIA (test 1 NORMAL <50 MG 1 NORMAL code = LIPINDEX) Index/DL CBC W/AUTO [id number] 13:52:00 Test Item Value Reference Range Interpretation Comments WHITE BLOOD CELL (test code = 8.8 K/mm3 4.1-12.1 N WBC) RED BLOOD CELL (test code = RBC) 4.70 M/mm3 3.8-5.5 N HEMOGLOBIN (test code = HGB) 13.7 G/DL 10.6-15.8 N HEMATOCRIT (test code = HCT) 41.5 % 31.8-47.4 N MEAN CELL VOLUME (test code = 88.3 fL 80.1-101.1 N MCV) MEAN CELL HGB (test code = MCH) 29.1 pg 25.3-35.3 N MEAN CELL HGB CONCETRATION (test 33.0 G/DL 32.7-35.1 N code = MCHC) RED CELL DISTRIBUTION WIDTH 12.4 % 12.2-16.4 N (test code = RDW) RED CELL DISTRIBUTION WIDTH 40.9 fL 35.1-43.9 N (test code = RDW-SD) PLATELET COUNT (test code = PLT) 256 K/mm3 155-337 N MEAN PLATELET VOLUME (test code 10.2 fL 7.6-10.4 N = MPV) GRANULOCYTE % (test code = GR%) 65.0 % 37.8-82.6 N IMMATURE GRANULOCYTE % (test 0.5 % 0.0-2.0 N code = IG%) LYMPHOCYTE % (test code = LY%) 24.2 % 14.1-45.4 N MONOCYTE % (test code = MO%) 8.4 % 2.5-11.7 N EOSINOPHIL % (test code = EO%) 1.4 % 0.0-6.2 N BASOPHIL % (test code = BA%) 0.5 % 0.0-2.6 N NUCLEATED RBC % (test code = 0.0 /100WBC% 0.0-1.0 N NRBC%) GRANULOCYTE # (test code = GR#) 5.72 k/mm3 2.0-13.7 N IMMATURE GRANULOCYTE # (test 0.04 K/mm3 0.00-0.03 H code = IG#) LYMPHOCYTE # (test code = LY#) 2.13 K/mm3 0.6-3.8 N MONOCYTE # (test code = MO#) 0.74 K/mm3 0.11-0.59 H EOSINOPHIL # (test code = EO#) 0.12 K/mm3 0.0-0.4 N BASOPHIL # (test code = BA#) 0.04 K/mm3 0.0-0.1 N NUCLEATED RBC # (test code = 0.00 K/mm3 0.00-0.05 N NRBC#) CREATINE KINASE (CK)2019-06-13 17:20:00 Test Item Value Reference Range Interpretation Comments CREATINE KINASE TOTAL (BEAKER) (test 462 U/L 30-300 H code = 380) TSH/FREE T4 IF [id number] 04:02:00 Test Item Value Reference Range Interpretation Comments THYROID STIMULATING HORMONE 1.20 uIU/mL 0.35-5.50 (BEAKER) (test code = 772) TROPONIN [id number] 03:49:00 Test Item Value Reference Range Interpretation Comments TROPONIN I (BEAKER) (test code = 0.01 ng/mL 0.00-0.15 397) Troponin I (TnI) levels must be interpreted in the context of the presenting symptoms and the clinical findings. Elevated TnI levels indicate myocardial damage, but are not specific for ischemic heart disease. Elevated TnI levels are seen in patients with other cardiac conditions (including myocarditis and congestive heart failure), and slight TnI elevations occur in patients with other conditions, including sepsis, renal failure, acidosis, acute neurological disease, and persistent tachyarrhythmia.HEPATIC FUNCTION [id number] 03:43:00 Test Item Value Reference Range Interpretation Comments TOTAL PROTEIN (BEAKER) (test code = 7.5 gm/dL 6.0-8.5 770) ALBUMIN (BEAKER) (test code = 1145) 4.7 g/dL 3.5-5.0 BILIRUBIN TOTAL (BEAKER) (test code 1.1 mg/dL 0.1-1.3 = 377) BILIRUBIN DIRECT (BEAKER) (test 0.5 mg/dL 0.0-0.5 code = 706) ALKALINE PHOSPHATASE (BEAKER) (test 52 U/L 30-115 code = 346) AST (SGOT) (BEAKER) (test code = 40 U/L 5-40 353) ALT (SGPT) (BEAKER) (test code = 23 U/L 6-50 347) BASIC METABOLIC [id number] 03:43:00 Test Item Value Reference Range Interpretation Comments SODIUM (BEAKER) 139 meq/L 135-148 (test code = 381) POTASSIUM (BEAKER) 3.5 meq/L 3.5-5.5 (test code = 379) CHLORIDE (BEAKER) 103 meq/L 98-106 (test code = 382) CO2 (BEAKER) (test 23 meq/L 20-31 code = 355) BLOOD UREA NITROGEN 19 mg/dL 10-26 (BEAKER) (test code = 354) CREATININE (BEAKER) 1.11 mg/dL 0.50-1.20 (test code = 358) GLUCOSE RANDOM 93 mg/dL 70-110 (BEAKER) (test code = 652) CALCIUM (BEAKER) 9.3 mg/dL 8.5-10.5 (test code = 697) EGFR (BEAKER) (test 75 mL/min/1.73 ESTIMA NATHALY GFR IS code = 1092) sq m NOT ACCURATE CREATININE CLEARANCE IN PREDICTING GLOMERULAR FILTRATION RATE . ESTIMATED GFR I S NOT APPLICABLE FOR DIALYSIS PATIEN TS. CREATINE KINASE (CK)2019-06-13 03:43:00 Test Item Value Reference Range Interpretation Comments CREATINE KINASE TOTAL (BEAKER) (test 982 U/L 30-300 H code = 380) URINALYSIS W/ REFLEX URINE [id number] 03:28:00 Test Item Value Reference Range Interpretation Comments COLOR (BEAKER) (test code = 470) Yellow CLARITY (BEAKER) (test code = 469) Clear SPECIFIC GRAVITY UA (BEAKER) (test 1.026 1.001-1.035 code = 468) PH UA (BEAKER) (test code = 467) 5.0 5.0-8.0 PROTEIN UA (BEAKER) (test code = 30 mg/dL Negative A 464) GLUCOSE UA (BEAKER) (test code = Negative Negative 365) KETONES UA (BEAKER) (test code = 20 mg/dL Negative A 371) BILIRUBIN UA (BEAKER) (test code = Negative Negative 462) BLOOD UA (BEAKER) (test code = 461) Small Negative A NITRITE UA (BEAKER) (test code = Negative Negative 465) LEUKOCYTE ESTERASE UA (BEAKER) Negative Negative (test code = 466) UROBILINOGEN UA (BEAKER) (test code 2.0 mg/dL 0.2-1.0 H = 463) RBC UA (BEAKER) (test code = 519) 2 /HPF WBC UA (BEAKER) (test code = 520) 4 /HPF MUCUS (BEAKER) (test code = 1574) Rare SOURCE(BEAKER) (test code = 2791) RAPID DRUG SCREEN, [id number] 03:23:00 Test Item Value Reference Range Interpretation Comments BARBITURATE URINE (BEAKER) (test Negative Negative code = 725) BENZODIAZEPINE SCREEN URINE (BEAKER) Negative Negative (test code = 726) COCAINE (METAB.) SCREEN (BEAKER) Negative Negative (test code = 1164) METHADONE SCREEN (BEAKER) (test code Negative Negative = 1436) OPIATE SCREEN URINE (BEAKER) (test Negative Negative code = 734) CANNABINOID SCREEN URINE (BEAKER) Negative Negative (test code = 727) AMPH/METHAMPH SCREEN (BEAKER) (test Positive Negative A code = 1438) PHENCYCLIDINE SCREEN URINE (BEAKER) Negative Negative (test code = 608) DRUG CUTOFF CONC.Cocaine 300 ng/mL Cannabinoid 50 ng/mLBenzodiazepine 200 ng/mLBarbiturate 200 ng/mLPhencyclidine 25 ng/mLOpiate 300 ng/mLMethadone 300 ng/mLAmphetamine/ 1000 ng/mL MethamphetamineThisassay provides an unconfirmed qualitative test result for the clinical management of patients in emergency situations. Chain of custody not maintained. Some fkne-xdh-vnohquj medications, as well as adulterants, may cause inaccurate results. Clinical correlation should be applied. A more comprehensive drug screen or confirmation of a detected drug may be performed upon request.[id number] 03:11:00 Test Item Value Reference Range Interpretation Comments ETHANOL (BEAKER) (test code = 400) < mg/dL <=10 CBC W/PLT COUNT & AUTO [id number] 02:58:00 Test Item Value Reference Range Interpretation Comments WHITE BLOOD CELL COUNT 12.0 K/ L 4.0-10.0 H (BEAKER) (test code = 775) RED BLOOD CELL COUNT 4.76 M/ L 4.20-5.80 (BEAKER) (test code = 761) HEMOGLOBIN (BEAKER) 14.2 GM/DL 13.0-16.8 (test code = 410) HEMATOCRIT (BEAKER) 42.3 % 36.0-50.0 (test code = 411) MEAN CORPUSCULAR VOLUME 88.9 fL 82.0-99.0 (BEAKER) (test code = 753) MEAN CORPUSCULAR 29.8 pg 27.0-33.0 HEMOGLOBIN (BEAKER) (test code = 751) MEAN CORPUSCULAR 33.6 GM/DL 32.0-36.0 HEMOGLOBIN CONC (BEAKER) (test code = 752) RED CELL DISTRIBUTION 12.3 % 12.0-15.0 WIDTH (BEAKER) (test code = 412) PLATELET COUNT (BEAKER) 214 K/CU MM 150-430 (test code = 756) MEAN PLATELET VOLUME 9.9 fL 6.0-11.5 MPV-Ira roximately (BEAKER) (test code = 20% po sitive bias 754) due to method change. NUCLEATED RED BLOOD 0 /100 WBC 0-0 CELLS (BEAKER) (test code = 413) NEUTROPHILS RELATIVE 62 % PERCENT (BEAKER) (test code = 429) LYMPHOCYTES RELATIVE 23 % PERCENT (BEAKER) (test code = 430) MONOCYTES RELATIVE 13 % PERCENT (BEAKER) (test code = 431) EOSINOPHILS RELATIVE 1 % PERCENT (BEAKER) (test code = 432) BASOPHILS RELATIVE 1 % PERCENT (BEAKER) (test code = 437) NEUTROPHILS ABSOLUTE 7.44 K/ L 1.80-8.00 COUNT (BEAKER) (test code = 670) LYMPHOCYTES ABSOLUTE 2.74 K/ L 1.48-4.50 COUNT (BEAKER) (test code = 414) MONOCYTES ABSOLUTE 1.58 K/ L 0.00-1.30 H COUNT (BEAKER) (test code = 415) EOSINOPHILS ABSOLUTE 0.16 K/ L 0.00-0.50 COUNT (BEAKER) (test code = 416) BASOPHILS ABSOLUTE 0.07 K/ L 0.00-0.20 COUNT (BEAKER) (test code = 417) IMMATURE 0 % 0-0 GRANULOCYTES-RELATIVE PERCENT (BEAKER) (test code = 2801) CT, BRAIN, WITHOUT [id number] 02:49:00Reason for exam:->SHAKINGReason for exam:->ALTERED MENTAL STATUSWhat is the patient's sedationrequirement?- >No SedationFINAL REPORT CLINICAL HISTORY: Confusion COMPARISON: None Multiple axial imagesof the brain were performed without IV contrast. This exam was performed according to our departmental dose- optimization program, which includes automated exposure control, adjustment of the mA and/or kV according to patient size and/or use of the iterative reconstruction technique. Intracranial hemorrhage: None. Brain parenchyma: No CT evidence of acute ischemia. The osuna-white interface is maintained. Ventricles, sulci and basal cisterns: Normal for age. Extra-axial spaces: Normal. Midline shift: None. Visualized vasculature: Normal. Cranium: No significant findings. Skullbase: No significant findings. Paranasal sinuses: No significant findings. IMPRESSION: No definite acute intracranial abnormality. There is no mass lesion, intracranial hemorrhage or CT evidence of acute stroke. Please note that CT is insensitive in the detection of acute ischemia. Signed: Ely Jolly MDReport Verified Date/Time: 06/13/2019 02:49:36 XR Abdomen 2 View [facility] : 1985 [facility] Pt Name: ARELI BACA [address] Phys: [place] [address] : 1985 Age: 35 SEX:M [phone] Exam Date: 12/24/20 Status: REG ER Acct: [id number] Loc: ERS Pt Unit #: [id number] Report #: [id number] CC: Zunilda Washington PA-C IMAGING SERVICES REPORT Order # Category/Exam [id number] RAD/XR Abdomen 2 View ([id number]): . Results XR Abdomen 2 View History: Abdominal distention Comparison: None. Findings: Elevation of the left the diaphragm. 3 mm stone projecting of the right interpolar collecting system. Moderate stool burden within the colon. Phleboliths in the pelvis. Mild facet arthrosis lower lumbar spine. Possible pars interarticularis defect on the right at L5. Impression: 1. Moderate stool burden within the colon. 2. 3 mm calcification projecting over the right interpolar collecting system. 3. Mildly elevated left hemidiaphragm. 4. Possible pars interarticularis defects on the right at L5. Reported By: HANNAH GALVAN Electronically Signed Date/Time: 12/24/20945 Technologist: Dictated Date/Time: 12/24/2044 Transcribed Date/Time:XR Chest 1 View Portable [facility] : 1985 [facility] Pt Name: ARELI BACA [address] Phys: Zunilda [place] [address] : 1985 Age: 35 SEX:M [phone] Exam Date: 12/24/20 Status: REG ER Acct: [id number] Loc: ERS Pt Unit #: [id number] Report #: [id number] CC: Zunilda Washington PA-C IMAGINGSERVICES REPORT Order # Category/Exam [id number] RAD/XR Chest 1 View Portable ([id number]): . ResultsExam: Chest one view HISTORY:Chest pain Comparison: None FINDINGS: Cardiac silhouette: Normal Aorta:Unremarkable Pulmonary vessels: Normal Costophrenic angles: Clear LUNGS: Elevation left hemidiaphragm in part be due to atelectasis. However, there may be gas distention. Consider abdomen radiograph series. Pneumothorax: None Osseous abnormalities: None IMPRESSION: 1. Elevation left hemidiaphragm as detailed above. Further evaluation with abdomen radiograph series may be beneficial. Reported By: Sujata Jacobson MD Electronically Signed Tarik e/Time: 12/24/20829 Technologist: JACKIE Dictated Date/Time: 12/24/20828 Transcribed Date/Time: Notes Date/Time Note Provider Source 2021-11-24 22:27:00-00:00 [facility] ([facility] EMERGENCY PROVIDER REPORT REPORT#:[id number] REPORT STATUS: Signed DATE:11/24/21 TIME: 2226 PATIENT: ARELI BACA UNIT #: [id number] ROOM: BED: AGE: 36 SEX: M PCP PHYS: No Primary or Family Ph ysician SERVICE AUTHOR: Hannah Benitez MD * ALL edits or amendments must be made on the [employer]/computer document * HPI-General Illness Free Text HPI Notes Free Text HPI Notes Pt is a 36 y/o male presenting to the ED via [employer] vehicle for c/o jaw pain and neck pain that came on x2 days ago. Pt state s that x2 days ago he used a power drill to take off a boat header wh en it flew back and hit him in the jaw and neck. Pt states that sin ce then he's had worsening jaw and neck pain and is concerned he might have fractured his jaw. General Confirmed Patient Yes Patient Type New patient Initial Greet Date/Time 11/24/212220 Presentation Chief Complaint jaw and neck pain Hx Obtained From Patient Onset Occurred Days ago (2) Symptom Duration Since onset Severity: Onset Moderate Severity: Current Moderate Review of Systems ROS Statements All systems rev neg except as marked. Review of Systems Constitutional Denies: Chills, Fatigue. Eyes Denies: Blurred bilat, Discharge bilat. Ears/Nose/Throat Denies: Ear ringing bilat, Earache bilat. Respiratory Denies: Cough, non-productive, Dyspnea on exerti on. Cardiovascular Denies: Chest pain, Palpitations. GI Denies: Abdominal pain, Nausea. Male Denies: Dysuria, Flank pain. Musculoskeletal Reports: Neck pain. Denies: Back pain. Skin Denies: Abrasion, Abscess. Neurologic Denies: Generalized weakness, Headache. Psychiatric Denies: Agitation, Anxiety. Free Text ROS Notes Free Text ROS Notes c/o jaw pain Past Medical History - Adult Stated Complaint JAW AND NECK PAIN Allergies Coded Allergies: No Known Allergies (11/24/21) Review of Nursing Notes Rev avail, and agree Pt reports no significant: Past medical history, Past surgical history, Family history, Social history Smoking status: Smoking status for patients 13 years old or old er: Unknown,if ever smoked Physical Exam Vital Signs Vital Signs First Documented: Result Date Time Pulse Ox 100 11/25 2219 B/P 148/95 11/25 2219 B/P Mean 112 11/25 2219 O2 Delivery Room air 11/25 2219 Temp 98.2 11/25 2219 Pulse 98 11/25 2219 Resp 18 11/25 2219 Last Documented: Result Date Time Pulse Ox 98 11/25 B/P 124/84 11/25 0000 B/P Mean 97 11/25 0000 O2 Delivery Room air 11/25 Temp 98.1 11/25 Pulse 98 11/25 0000 Resp 18 11/25 0000 Review of Vital Signs Reviewed Physical Exam General/Const General/Const Awake, Alert, No acute distress MS Head Head Atraumatic, Normocephalic Text/Dict Notes No signs of cranial trauma. Eyes Eyes PERRL, EOMI Text/Dict Notes Orbits within normal limits. Ears/Nose/Throat Text/Dict Notes Tenderness to jaw. Painful R OM of jaw. No clinical dislocation. Poor dentition. MS Neck Neck Supple, No meningismus, Full range of shannan on Resp/Chest Respiratory/Chest Breath sounds NL, Breath soun ds = bilat, No respiratory distress Cardiovascular Cardiovascular Heart rate NL, Regular rhythm, H eart sounds NL Abdomen/GI Abdomen/GI Soft, Non-tender MS Back Back Full range of motion Text/Dict Notes Paraspinus muscle spasms to cervical spine. No m idline vertebral tenderness. MS Upper Extrem Upper Extremity/MS Inspection NL, Full range of motion MS Lower Extrem Lower Ext/Pelvis/MS Inspection NL, Full range o f motion Skin Skin Color NL, No rash, Warm, Dry, Intact Neurologic Neurologic Oriented X3, Speech NL, No m otor deficits, No sensory deficits, CN II - XII intact Psychiatric Psychiatric Affect NL, Mood NL Interpretation Diagnostics Lab Results Interpretation Results Recent Impressions: CAT SCAN - CT MAXIFAC W/O CONTRAST 11/25 2239 Report Impression - Status: SIGNED Entered: 11/24/2021 2316 IMPRESSION: Negative CT of the facial bones. DLP: 220.3 mGy-cm CT dose optimization is achieved for this examin ation by the use of a CT protocol in accordance with ACR practice keke cobb and adherence to mine car mechanic's recommendations with automated ex posure control. Impression By: [email or web address] - Sixto Hanna MD CAT SCAN - CT C-SPINE W/O CONT 11/25 2239 Report Impression - Status: SIGNED Entered: 11/24/2021 2323 IMPRESSION: No acute abnormality. CT dose optimization is achieved for this examin ation by the use of a CT protocol in accordance with ACR practice keke cobb and adherence to mine car mechanic's recommendations with automated ex posure control. Impression By: [email or web address] - Sixto Hanna MD Imaging Statement Radiographic studies reviewed and considered in the medical decision-making. Point of Care Testing Pulse Oximetry Pulse Ox % 100 On: Room air Interpretation Interpreted by me, Pulse oximetr y normal Time 2228 Re-Evaluation MDM Free Text MDM Notes Free Text MDM Notes 36-year-old man with history of prior mandible f racture with surgical intervention in the past presents 2 days after b zoya trauma to his face. Patient was drilling and the drill kicked back and hit him in the jaw. Has pain to his posterior neck bilaterally and pain to hi s jaw, states it feels different. Has painful range of motion of his ja w, no bleeding no wound. We will plan for CT of the C-spine and maxillofacia l bones to eval for mandible fracture, rule out C-spine injury Additional Text Patient feeling better here, CT of the C -spine and facial bones negative other than some incidental arthritic type changes in t he C-spine. No fracture no dislocation. Will discharge home patient home, s oft diet, follow-up with PCP, NSAIDs muscle x-rays pain relievers, return prec autions discussed Re-Evaluation/Progress #1 Text/Dict Note Discussed imaging results with pt, will plan to d/c pt home. Re-Eval Status Improved ED Course Medication(s) Ordered Medication(s) Ordered: Central Nervous System Agents Sig/Zulma Start time Last Medication Dose Route Stop Time Status Admin Hydrocodone Bitart/ 2 TAB X1ED STA 11/24 2229 D C 11/24 Acetaminophen PO 11/24 2230 224 Differential Diagnosis Differential Diagnosis jaw contusion, jaw pain Patient Discharge Departure Vital Signs/Condition Vital Signs First Documented: Result Date Time Pulse Ox 100 11/25 2219 B/P 148/95 11/25 2219 B/P Mean 112 11/25 2219 O2 Delivery Room air 11/25 2219 Temp 98.2 11/25 2219 Pulse 98 11/25 2219 Resp 18 11/25 2219 Last Documented: Result Date Time Pulse Ox 98 / 0000 B/P 124/84 11/25 0000 B/P Mean 97 11/25 0000 O2 Delivery Room air 11/25 Temp 98.1 11/25 0000 Pulse 98 11/25 0000 Resp 18 11/25 0000 All vital signs available at the time of this en try have been reviewed. Condition Stable, Improved Clinical Impression Clinical Impression Primary Impression: Facial contusion Secondary Impressions: Cervical sprain, HISTORY OF MANDIBLE FRACTURE Disposition Decision Discharge )( Discharged to Home Yes )( Time 0000 )( Date 11/25/21 Discharge/Care Plan Counseled Regarding Diagnosis, Imaging studies, Need for follow-up, When to return to ED Rx Drug Database Reviewed Yes (Auto) Prescriptions Current Visit Scripts Cyclobenzaprine (Flexeril) 10 MG PO Q8H PRN PRN MUSCLE SPASMS/PAIN Cyclobenzaprine (Flexeril) 10 MG PO Q8H PRN PRN MUSCLE SPASMS/PAIN #30 TABS Ibuprofen (Motrin) 800 MG PO TID PRN PRN PAIN Ibuprofen (Motrin) 800 MG PO TID PRN PRN PAIN # 30 TABS Acetaminophen/Codeine (Tylenol With Code ine #4 300/60 Mg) 1 TAB PO Q4H PRN PRN ACUTE PAIN Acetaminophen/Codeine (Tylenol With Codeine #4 300/60 Mg) 1 TAB PO Q4H PRN PRN ACUTE PAIN #20 TABS Patient Instructions ED Facial Contusion, ED Nec k Sprain or Strain Discharge Note I have spoken with the patie nt and/or caregivers. I have explained the patient's condition, diagnoses and betty atment plan based on the information available to me at this time. I have answered the patient's and/ or caregiver's questions and addressed any concerns. The patient and/or careg bret have as good an understanding of the patient 's diagnosis, condition and treatment plan as can be expected at this point. The vital signs have bee n stable. The patient's condition is stable and appr opriate for discharge from the emergency department. The patient will pursue further outpatient evalu ation with the primary care physician or other designated or consulting phys ician as outlined in the discharge instructions. The patient and/or caregivers are agreeable to this plan of care and follow-up instructions have been exp lained in detail. The patient and/or caregivers have received these instructio ns in written format and have expressed an understanding of the discharge inst ructions. The patient and/or caregivers are aware that any significant change in condition or worsening of symptoms should prompt an immediate return [facility] or the closest emergency department or a call to 1. Quality Measures BP F/U for HTN F/u with PCP/other doc at 0035 RPT #:[id number] END OF REPORT 2021-09-20 02:32:00-00:00 [facility] ([facility]) EMERGENCY PROVIDER REPORT REPORT#:[id number] REPORT STATUS: Signed DATE:09/20/21 TIME: 231 PATIENT: ARELI BACA UNIT #: [id number] ROOM/BED: AGE: 35 SEX: M PCP PHYS: No Primary or Family P hysician SERVICE AUTHOR: Ciro Umanzor APRNNP * ALL edits or amendments must be made on the [employer] document * Ciro Umanzor 09/20/21 0232: HPI-Facial Problem/Injury Free Text HPI Notes Free Text HPI Notes Patient is a 35-year-old male who presents with complaints of left jaw pain. Reports he had facial fractu res that were surgically repaired about 2 years ago. Tonight he was chewing something and felt a pop ping sensation, the patient reports that he had blood come out of his left e ar. Denies any new injuries, denies recent URI symptoms, fever, headache, hea d injury, earache. General Initial Greet Date/Time 09/19/212134 Presentation Chief Complaint Jaw pain Review of Systems ROS Statements All systems rev neg except as marked. Past Medical History - Adult Stated Complaint JAW PAIN Allergies Coded Allergies: No Known Allergies (09/19/21) Home Medications Active Scripts CEPHALEXIN (KEFLEX) 500 MG PO Q8H 10 Days #30 CAPS Prov: 07/24/21 Additional Medical History anxiety, depression Additional Surgical History Jaw surgery Family History: Reports: Hypertension. Physical Exam Vital Signs Vital Signs First Documented: Result Date Time Pulse Ox 99 09/19 2132 B/P 149/77 09/19 2132 B/P Mean 101 09/19 2132 O2 Delivery Room air 09/19 2132 Temp 98.0 09/19 2132 Pulse 94 09/19 2132 Resp 16 09/19 2132 Last Documented: Result Date Time Pulse Ox 99 09/20 241 B/P 138/73 09/20 241 B/P Mean 94 09/20 241 O2 Delivery Room air 09/20 241 Pulse 92 09/20 241 Resp 16 09/20 241 Temp 98.0 09/19 2132 Review of Vital Signs Reviewed Free Text PE Notes Free Text PE Notes General/Const: Awake, Alert, No acute distress, Well appearing, Well developed, Well hydrated, Well nourished, Cooperative, Not toxic appearing Head: Atraumatic, Normocephalic Eyes: PERRL, EOMI ENT: Bilateral TMs clear and intact, ear canals clear, no evidence of active or recent bleeding, mucous membranes pink and moist , range of motion and jaws intact Neck: Atraumatic, Supple Resp/Chest: Breath sounds NL, Breath sounds = bilat, No res piratory distress, No rales, No rhonchi, No wheezing, No retractions, No stri van, No chest tenderness, No chest wall deformity, No crepitus Cardiovascular: Heart rate NL, Regular rhythm, Heart sounds NL, No gallop, No murmurs, No rubs, Cap refill not delayed, Peripheral circulation NL, Pulses = bilaterally, Abdomen/GI: Atraumatic, Soft, nontender, McBurney's non-ten becky, No guarding, No rebound, BS normoactive, No distention, No hernia, No pal pable mass, No pulsatile mass MS: All extremities with Nor mal range of motion, no gross deformity, no swelling , no pulse deficits MS Back: Atraumatic, No CVA tenderness Skin: Atraumatic, Color NL, No rash, Warm, Dry, Intac t, Turgor NL, No swelling Neurologic: Oriented X3, Speech NL, No motor deficits, No s ensory deficits Psychiatric: Affect NL, Mood NL Interpretation Diagnostics Lab Results Interpretation Results Recent Impressions: CAT SCAN - CT HEAD/BRAIN W/O CONT 09/19 2209 Report Impression - Status: SIGNED Entered: 09/19/20212240 Impression: No CT evidence of an acute intracranial hemorrha ge or significant mass effect CT OF THE FACIAL BONES WITHOUT CONTRAST CLINICAL HISTORY: Trauma TECHNIQUE: Contiguous axial images of the facial bones were obtained. Sagittal and coronal reformats were provided. One or more of the following dose reduction tech niques were used: Automated exposure control, adjustment of the mA and/or kV according to patient size, and/or utilization of iterative reconstruction technique. COMPARISONS: There are no prior similar studies available for comparison. FINDINGS: No definite CT evidence of acute facial bone fra cture or dislocation is seen. No evidence of retrobulbar hematoma is demonstrated. Nonspecific flattening of the bilateral mandibul ar heads is seen. Postsurgical changes of the left mandible are no nathaly. Sinuses and mastoid air cells are clear. Limite d evaluation of the temporal bone on this examination concern persis ts a temporal bone CT can be performed for further evaluation as indic ated IMPRESSION: No definite CT evidence of acute facial bone fra cture or dislocation is seen. No evidence of retrobulbar hematoma is demonstrated. Nonspecific flattening of the bilateral mandibul ar heads is seen. Postsurgical changes of the left mandible are no nathaly. Sinuses and mastoid air cells are clear. Limited evaluation of the temporal bone on this examination concern persis ts a temporal bone CT can be performed for further evaluation as indic ated. Impression By: [email or web address] Kit Pino CAT SCAN - CT MAXIFAC W/O CONTRAST 09/19 2209 Report Impression - Status: SIGNED Entered: 09/19/20212240 Impression: No CT evidence of an acute intracranial hemorrha ge or significant mass effect CT OF THE FACIAL BONES WITHOUT CONTRAST CLINICAL HISTORY: Trauma TECHNIQUE: Contiguous axial images of the facial bones were obtained. Sagittal and coronal reformats were provided. One or more of the following dose reduction tech niques were used: Automated exposure control, adjustment of the mA and/or kV according to patient size, and/or utilization of iterative reconstruction technique. COMPARISONS: There are no prior similar studies available for comparison. FINDINGS: No definite CT evidence of acute facial bone fra cture or dislocation is seen. No evidence of retrobulbar hematoma is demonstrated. Nonspecific flattening of the bilateral mandibul ar heads is seen. Postsurgical changes of the left mandible are no nathaly. Sinuses and mastoid air cells are clear. Limited evaluation of the temporal bone on this examination concern persis ts a temporal bone CT can be performed for further evaluation as indic ated IMPRESSION: No definite CT evidence of acute facial bone fra cture or dislocation is seen. No evidence of retrobulbar hematoma is demonstrated. Nonspecific flattening of the bilateral mandibul ar heads is seen. Postsurgical changes of the left mandible are no nathaly. Sinuses and mastoid air cells are clear. Limited evaluation of the temporal bone on this examination concern persis ts a temporal bone CT can be performed for further evaluation as indic ated. Impression By: [email or web address] Kit Pino Re-Evaluation MDM Re-Evaluation/Progress Re-Evaluation/Progress Text/Dict Note Discussed CT findings with molly nash, discussed treatment plan as well as follow- up recommendations. No evide nce on physical exam of reported bleeding from ear, TM appears intact, no dried blood or any blood w ithin the ear canal. Time of Re-Eval 233 Re-Eval Status Improved ED Course Medication(s) Ordered Medication(s) Ordered: Central Nervous System Agents Sig/Zulma Start time Last Medication Dose Route Stop Time Status Admin Hydrocodone Bitart/ 1 TAB X1ED STA 09/20 0230 D C 09/20 Acetaminophen PO 09/20 023 0240 Ibuprofen 800 MG X1ED STA 09/20 0230 DC 09/20 PO 09/20 023 0240 Patient Discharge Departure Vital Signs/Condition Vital Signs First Documented: Result Date Time Pulse Ox 99 09/19 2132 B/P 149/77 09/19 2132 B/P Mean 101 09/19 2132 O2 Delivery Room air 09/19 2132 Temp 98.0 09/19 2132 Pulse 94 09/19 2132 Resp 16 09/19 2132 Last Documented: Result Date Time Pulse Ox 99 09/20 0242 B/P 138/73 09/202 B/P Mean 94 09/20 241 O2 Delivery Room air 09/20 241 Pulse 92 09/20 241 Resp 16 09/20 241 Temp 98.0 09/19 2132 All vital signs available at the time of this en try have been reviewed. Condition Stable Clinical Impression Clinical Impression Primary Impression: Jaw pain Disposition Decision Discharge )( Discharged to Home Yes )( Time 023 )( Date 09/20/21 Discharge/Care Plan Counseled Regarding Diagnosi s, Imaging studies, Prescriptions, Need for follow- up, When to return to ED (Auto) Prescriptions Current Visit Scripts IBUPROFEN (MOTRIN) 800 MG PO TID PRN PRN PAIN IBUPROFEN (MOTRIN) 800 MG PO TID PRN PRN PAIN # 30 TABS AMOXICILLIN (AMOXIL) 875 MG PO Q12HR AMOXICILLIN (AMOXIL) 875 MG PO Q12HR #20 TABS Patient Instructions ED TMJ Syndrome Additional Instructions Drink plenty of fluids. Medication as prescribed. Take Tylenol per bottle instructions as needed f or pain. Follow-up with primary care provider in 2 to 3 d ays. Return to ER for any worsening or concerning sym ptoms. Referrals PRIMARY CARE Discharge Note I have spoken with the patie nt and/or caregivers. I have explained the patient's condition, diagnoses and betty atment plan based on the information available to me at this time. I have answered the patient's and/ or caregiver's questions and addressed any concerns. The patient and/or careg bret have as good an understanding of the patient 's diagnosis, condition and treatment plan as can be expected at this point. The vital signs have bee n stable. The patient's condition is stable and appr opriate for discharge from the emergency department. The patient will pursue further outpatient evalu ation with the primary care physician or other designated or consulting phys ician as outlined in the discharge instructions. The patient and/or caregivers are agreeable to this plan of care and follow-up instructions have been exp lained in detail. The patient and/or caregivers have received these instructio ns in written format and have expressed an understanding of the discharge inst ructions. The patient and/or caregivers are aware that any significant change in condition or worsening of symptoms should prompt an immediate return to [facility] or the closest emergency department or a call to 911. Reza Stacy 09/20/21 1709: Re-Evaluation MDM Free Text MDM Notes Additional Text [x] Level 1: I was available for consultation du mahin the patient s visit, but the patient was not presented to me during their time in the ED. Electronically Signed by Ciro Umanzor on at 1337 Electronically Signed by Reza Stacy MD on 09/20 at 0588 RPT #:[id number] END OF REPORT 2021-07-25 14:28:00-00:00 [facility]) Pharmacy Progress Note REPORT#:[id number] REPORT STATUS: Signed DATE:07/25/21 TIME: 1428 PATIENT: ARELI BACA UNIT #: [id number] ROOM/BED: : 83 AGE: 35 SEX: M ATTEND: [facility] FOR EDM ADM DT: AUTHOR: [facility] * ALL edits or amendments must be made on the [employer] document * See Addendum Pharmacy Note Treatment plan: cont current regimen/dose Additional comments: ARELI BACA is a 35year old patient who was seen in the Emergency Room on for UTI. While in the ER, a DNA probe was col lected to test for Chlamydia trachomatis which showed no detection. No furthe r action is needed. at 1429 Addendum 1: 07/26/21 1437 by Melo [facility] Additionally, a DNA probe was collected which gr ew neisseria gonorrhoeae. Patient was administered rocephin 500 mg IM x 1, which is appropriate therapy per susceptibility panel. No further action is n eeded. at 1438 RPT #:[id number] END OF REPORT 2021-07-24 05:10:00-00:00 [facility] ([facility]) EMERGENCY PROVIDER REPORT REPORT#:[id number] REPORT STATUS: Signed DATE:07/24/21 TIME: 509 PATIENT: ARELI BACA UNIT #: [id number] ROOM/BED: AGE: 35 SEX: M PCP PHYS: No Primary or Family Ph ysician SERVICE AUTHOR: Camille Reid APR [employer] * ALL edits or amendments must be made on the [employer] document * Camille Reid 07/24/21 0510: HPI- Male General Initial Greet Date/Time 07/23/21 2300 Presentation Chief Complaint Dysuria, Flank pain R, Flank truman n L Hx Obtained From Patient Onset Occurred Weeks ago (2) Symptom Duration Since onset Location Flank R, Flank L Quality Painful Radiation No: Does not radiate. Exacerbated by Nothing Context Immunization Status General All up to date Free Text HPI Notes Free Text HPI Notes 35-year-old male presents ER for complai nts of flank pain and testicle pain x2 weeks. Past Medical History - Adult Stated Complaint BLOOD IN URINE - ABDMENAL PAIN Allergies Coded Allergies: No Known Allergies (07/23/21) Physical Exam Vital Signs Vital Signs First Documented: Result Date Time Pulse Ox 98 07/23 2302 B/P 151/96 07/23 2302 B/P Mean 114 07/23 2302 O2 Delivery Room air 07/23 2302 Temp 97.6 07/23 2302 Pulse 103 07/23 2302 Resp 16 07/23 2302 Last Documented: Result Date Time Pulse Ox 99 07/24 525 B/P 125/74 07/24 525 B/P Mean 91 07/24 525 O2 Delivery Room air 07/24 525 Temp 97.3 07/24 525 Pulse 91 07/24 525 Resp 16 07/24 525 Review of Vital Signs Reviewed Focused PE General/Const General/Const Awake, Alert, Well appearing Abdomen/GI Abdomen/GI Soft, Non-tender, No guarding, No re bound Skin Skin Color NL, No rash, Warm, Dry, Turgor NL Genitourinary General pt refused Additional PE MS Head Head Atraumatic, Normocephalic Eyes Eyes Atraumatic, PERRL, EOMI MS Back Back Atraumatic, Inspection NL, Full range of m otion, Painless range of motion, Non-tender, No midline vertebral tend Interpretation Diagnostics Lab Results Interpretation Results Laboratory Tests: 07/23 2330 Urines Urine Color (YELLOW DESCRIPT) LIGHT-RED Urine Appearance (CLEAR DESCRIPT) TURBID (2+) H Urine pH (4.6 - 8.0 pH UNITS) 6.0 Ur Specific [place] (1.001 - 1.035 SG) 1.025 Urine Protein (<30 (1+) mg/dL) 70 (1+) H Urine Glucose (UA) (0 (NORMAL) mg/dL) NORMAL (0 ) Urine Ketones ((NEG) 0 mg/dL) TRACE Urine Blood (0 (NEG) mg/dL) OVER >=1.0 mg/dL H Urine Nitrite (NEG SCREEN) NEGATIVE (0) Urine Bilirubin ((NEG) 0 mg/dL) NEGATIVE (0.0) Urine Urobilinogen (<2.0 (1+) mg/Dl) NORMAL (0 ) Ur Leukocyte Esterase ((NEG) 0 Leuk/mcL) 500 H Urine RBC (0 - 3 #RBC/HPF) >100 H Urine WBC (0 - 3 #WBC/HPF) >100 H Ur Squamous Epith Cells (NONE - SQepi /UL) RARE >0 Urine Bacteria (NONE - FEW /HPF) FEW >1 Microbiology: Date/Time Procedure - Status Source Growth 07/23 2330 GC DNA Probe - COMP URINE 07/23 2330 Chlamydia DNA Probe (HALEY) - COMP URINE Recent Impressions: ULTRASOUND - DUP AB/PEL/SC LTD 07/23 2318 Report Impression - Status: SIGNED Entered: 07/23/20212348 IMPRESSION: 1. No testicular torsion, mass or orchitis. 2. A few small simple cysts in the right epididy mal head. Impression By: Magda Trammell MD ULTRASOUND - US SCROTUM AND CNTS 07/23 2318 Report Impression - Status: SIGNED Entered: 07/23/20212348 IMPRESSION: 1. No testicular torsion, mass or orchitis. 2. A few small simple cysts in the right epididy mal head. Impression By: Magda Trammell MD CAT SCAN - CT ABD PELVIS W/O CONT 07/24 0450 Report Impression - Status: SIGNED Entered: 07/24/2021 0506 IMPRESSION: 1. No acute findings demonstrated in the abdomen and pelvis. 2. No nephrolithiasis or urolithiasis. Impression By: Magda Trammell MD Re-Evaluation MDM Re-Evaluation/Progress Re-Evaluation/Progress Text/Dict Note CT unremarkable for stone. p t refused std testing Will treat patient outpatient for UTI Time of Re-Eval 05 ED Course Medication(s) Ordered Medication(s) Ordered: Anti-Infective Agents Sig/Zulma Start time Last Medication Dose Route Stop Time Status Admin Azithromycin 1,000 MG X1ED STA 07/23 2306 DC PO 07/23 2307 0301 Ceftriaxone Sodium 500 MG X1ED STA 07/23 2306 D C 07/24 Lidocaine HCl 1 ML IM 07/24 0005 0300 Central Nervous System Agents Sig/Zulma Start time Last Medication Dose Route Stop Time Status Admin Ketorolac 60 MG X1ED STA 07/24 0232 DC 07/24 Tromethamine IM 07/243 0301 Patient Discharge Departure Vital Signs/Condition Vital Signs First Documented: Result Date Time Pulse Ox 98 07/23 2302 B/P 151/96 07/23 2302 B/P Mean 114 07/23 2302 O2 Delivery Room air 07/23 2302 Temp 97.6 07/23 2302 Pulse 103 07/23 2302 Resp 16 07/23 2302 Last Documented: Result Date Time Pulse Ox 99 07/24 525 B/P 125/74 07/24 05 B/P Mean 91 07/24 05 O2 Delivery Room air 07/24 525 Temp 97.3 07/24 05 Pulse 91 07/24 05 Resp 16 07/24 05 All vital signs available at the time of this en try have been reviewed. Clinical Impression Clinical Impression Primary Impression: UTI (urinary tract infection ) Disposition Decision Discharge )( Discharged to Home Yes )( Time 0511 )( Date 07/24/21 Discharge/Care Plan Counseled Regarding Diagnosi s, Lab results, Imaging studies, Prescriptions, Need for follow-up, When to return to ED (Auto) Prescriptions Current Visit Scripts CEPHALEXIN (KEFLEX) 500 MG PO Q8H 10 Days #30 CAPS Patient Instructions Urinary Tract Infections in Men Additional Instructions Follow up with your primary care doctor or [place] [facility] in the next 2 days for reevaluation. Drink plenty of fluids for hyd ration.. Take prescription medicines as prescribed for infection of urine.. alternate between Tylenol and Motrin for discomfort. Strict return pre cautions: Return to ER immediately for increased pain, fever, chills, body aches, back pain, nausea, vomiting or any worsening new or concerning symptoms. Referrals Joseph Marley MD: 2-3 Days Discharge Note I have spoken with the patie nt and/or caregivers. I have explained the patient's condition, diagnoses and betty atment plan based on the information available to me at this time. I have answered the patient's and/ or caregiver's questions and addressed any concerns. The patient and/or careg bret have as good an understanding of the patient 's diagnosis, condition and treatment plan as can be expected at this point. The vital signs have bee n stable. The patient's condition is stable and appr opriate for discharge from the emergency department. The patient will pursue further outpatient evalu ation with the primary care physician or other designated or consulting phys clover as outlined in the discharge instructions. The patient and/or caregivers are agreeable to this plan of care and follow-up instructions have been exp lained in detail. The patient and/or caregivers have received these instructio ns in written format and have expressed an understanding of the discharge inst ructions. The patient and/or caregivers are aware that any significant change in condition or worsening of symptoms should prompt an immediate return to [facility] or the closest emergency department or a call to 911. Senthil Stark 07/27/21 2325: Patient Discharge Departure Supervising Physician Note MidLv Saw Pt Alone Level 1: I was available for consultation during the patient s visit, but the patient was not presented to me during their franky e in the ED. at 0322 Electronically Signed by Senthil Stark MD on 11/12 at 2337 RPT #:[id number] END OF REPORT 2021-07-23 23:06:00-00:00 [facility] ([facility]) EMERGENCY PROVIDER REPORT REPORT#:[id number] REPORT STATUS: Signed DATE:07/23/21 TIME: 2305 PATIENT: ARELI BACA UNIT #: [id number] ROOM/BED: AGE: 35 SEX: M PCP PHYS: No Primary or Family Ph ysician SERVICE AUTHOR: Camille Reid APRP * ALL edits or amendments must be made on the el [employer]/computer document * Provider in Triage - Adult Provider in Triage Initial Greet Date/Time 07/23/21 2300 HPI Chief Complaint Back pain ROS Denies: Fever, Cough, Abdominal pain, Nausea, Vo miting. PE General/Const No acute distress Progress 35-year-old male presents ER for complai nts of flank pain and testicle pain x2 weeks. MSE Not Complete The medical screening exam i s not complete. Further evaluation and/or treatment is required. The patient will be re-directed to the emergency department. PMH-Provider in Triage Stated Complaint BLOOD IN URINE - ABDMENAL PAIN Allergies Coded Allergies: No Known Allergies (07/23/21) Home Medications Reported Medications No Known Home Medications Patient History FATHER Family History: Unremarkable MOTHER Family History: Unremarkable at 0509 RPT #:[id number] END OF REPORT 2020-01-30 13:49:00-00:00 [facility] ([facility]) EMERGENCY PROVIDER REPORT REPORT#:[id number] REPORT STATUS: Signed DATE:01/30/20 TIME: 1348 PATIENT: ARELI BACA UNIT #: [id number] ROOM/BED: AGE: 34 SEX: M PCP PHYS: No Primary or Family Ph ysician SERVICE AUTHOR: Clotilde Castanon MD * ALL edits or amendments must be made on the [employer]/computer document * HPI-General Illness Free Text HPI Notes Free Text HPI Notes 34-year-old male recently had trauma related to a fall out of a tree he was apparently seen here initial ly and then transferred to [facility] where he had his jaw wired shut and a MATTHEW drain p laced. He also reports having bilateral foot fractures. He is unsure if those were supposed to be splinted or if he was supposed to be francois ght with bearing because he left prior to completion of his treatment. He has not tried to contact the surgeons who managed his jaw. He denies any other complai nts other than bilateral foot pain and jaw pain. He reports that in the last 2 days he has developed firmness under the left jaw which brought him in here today. He malia es any difficulty swallowing breathing or turning his neck. General Confirmed Patient Yes Patient Type New patient Initial Greet Date/Time 01/30/20 1341 Presentation Chief Complaint JAW PAIN, FOOT PAIN Review of Systems ROS Statements All systems rev neg except as marked. Free Text ROS Notes Free Text ROS Notes Review of systems: Constitutional: no fever Eyes: no vision change Ear nose and throat: no pain Respiratory: no cough no shortness of breath Cardiovascular: no chest pain GI: no abdominal pain or diarrhea Musculoskeletal: no back pain Neuro: no change in mental status Past Medical History - Adult Stated Complaint FELL OUTOF TREE - PAIN BOTH ANK LES Allergies Coded Allergies: No Known Allergies (08/03/16) Home Medications Reported Medications No Known Home Medications Additional Medical History anxiety, depression Additional Surgical History Jaw surgery Family History: Reports: Hypertension. Alcohol Use Denies EtOH use Drug Use Denies recreational drugs Smoking status for patients 13 years old or olde r: Current every day smoker Other Social History Local resident, Good social support Occupation construction, odd jobs Physical Exam Vital Signs Vital Signs First Documented: Result Date Time Pulse Ox 98 01/29 1300 B/P 132/91 01/29 1300 B/P Mean 104 01/29 1300 O2 Delivery Room air 01/29 1300 Temp 98.6 01/29 1300 Pulse 100 01/29 1300 Resp 18 01/29 1300 Last Documented: Result Date Time Pulse Ox 99 01/29 1800 B/P 135/76 / 1800 B/P Mean 95 01/29 1800 Temp 98.6 01/29 1800 Pulse 61 01/29 1800 Resp 16 01/29 1800 O2 Delivery Room air 01/29 1300 Review of Vital Signs Reviewed, Vital signs norm al Free Text PE Notes Free Text PE Notes General appearance: no acute distress HEENT: Jaws wired shut there is a MATTHEW drain on th e left there is firmness submandibularly on the left Neck: Full range of motion of the neck Respiratory: clear to auscultation bilaterally, no increase work of breathing Chest: regular rate and rhythm no murmurs rubs o r gallops Abdomen: soft nontender nondistended Extremities: warm well perfused, neurovascularly intact Skin: Bruising to the bilateral dorsum of toes w orse on the right foot 2+ dorsalis pedis pulses bilaterally Neurologic alert and oriented x3 moving all extr emities equally well Interpretation Diagnostics Lab Results Interpretation Results Laboratory Tests 01/30/20 1420: [Embedded Image Not Available] Laboratory Tests: 01/29 01/29 1910 1420 Chemistry Sodium (133 - 144 mmol/L) 133.0 Potassium (3.5 - 5.1 mmol/L) 3.7 Chloride (95 - 105 mmol/L) 99 Carbon Dioxide (21 - 32 mmol/L) 28 Anion Gap (4.0 - 15.0 GAP calc) 6.0 BUN (7 - 18 MG/DL) 13 Creatinine (0.55 - 1.30 MG/DL) 0.93 Glucose (70 - 110 MG/DL) 109 Lactic Acid (0.4 - 2.0 mmol/L) 1.3 Calcium (8.5 - 10.1 MG/DL) 9.2 Specimen Appearance (1 NORMAL Index/DL) 1 RAVINDRA L <2 MG Specimen Hemolysis (1 NORMAL Index/DL) 1 NORMAL <10 MG Hematology WBC (4.1 - 12.1 K/mm3) 9.0 RBC (3.8 - 5.5 M/mm3) 4.38 Hgb (10.6 - 15.8 G/DL) 12.8 Hct (31.8 - 47.4 %) 40.4 MCV (80.1 - 101.1 fL) 92.2 MCH (25.3 - 35.3 pg) 29.2 MCHC (32.7 - 35.1 G/DL) 31.7 L RDW (12.2 - 16.4 %) 12.2 Plt Count (155 - 337 K/mm3) 549 H MPV (7.6 - 10.4 fL) 9.4 Gran % (37.8 - 82.6 %) 58.5 Lymph % (Auto) (14.1 - 45.4 %) 28.3 [place] % (Auto) (2.5 - 11.7 %) 9.7 Eos % (Auto) (0.0 - 6.2 %) 2.1 Baso % (Auto) (0.0 - 2.6 %) 0.7 Gran # (2.0 - 13.7 k/mm3) 5.29 Lymph # (Auto) (0.6 - 3.8 K/mm3) 2.56 [place] # (Auto) (0.11 - 0.59 K/mm3) 0.88 H Eos # (Auto) (0.0 - 0.4 K/mm3) 0.19 Baso # (Auto) (0.0 - 0.1 K/mm3) 0.06 Immature Gran % (0.0 - 2.0 %) 0.7 Nucleated RBC % (0.0 - 1.0 /100WBC%) 0.0 Nucleated RBCs # (0.00 - 0.05 K/mm3) 0.00 Microbiology: Date/Time Procedure - Status Source Growth 01/29 1430 Blood Culture - RES BLOOD 01/29 1420 Blood Culture - RES BLOOD Recent Impressions: CAT SCAN - CT LOWER EXTRM W/O C LT 01/29 1400 Report Impression - Status: SIGNED Entered: 01/30/2020 1645 IMPRESSION: Mildly displaced fractures of the posterior and lateral processes of the talus. The talar neck, talar dome and tibiot alar joint are maintained. Impression By: Lenore Jones M.D. CAT SCAN - CT MAXIFAC W/CONTRAST 01/29 1400 Report Impression - Status: SIGNED Entered: 01/30/2020 1622 IMPRESSION: Postsurgical changes in the mandible. One screw in the right maxilla does not appear to have bony purchase. Marked soft tissue swelling/phlegmon in the left submandibular region. No drainable abscess. Impression By: Mani Calvin MD RADIOLOGY - XR FOOT 3 + V BI 01/29 1417 Report Impression - Status: SIGNED Entered: 01/30/2020 1426 Impression: 1. Fracture identified the base of the 5th metat arsal bone of the right foot. 2. Unremarkable left foot without evidence for a cute fracture or dislocation. Impression By: Charlotte Sow MD RADIOLOGY - XR ANKLE 3 + V BI 01/29 1418 Report Impression - Status: SIGNED Entered: 01/30/2020 1425 IMPRESSION: 1. Findings suspicious for a small avulsion type fracture identified involving the left inferolateral talus. 2. No acute fracture identified in the right ank le. 3. Old avulsion-type fracture arising from the i nferior aspect of the distal fibula on the right. Impression By: Charlotte Sow MD Point of Care Testing Pulse Oximetry Pulse Ox % 98 On: Room air Interpretation Interpreted by me, Pulse oximetr y normal Time 1351 Re-Evaluation MDM Re-Evaluation/Progress #1 Text/Dict Note Plan for CAT scans and x-rays as the patient is unsure of his prior injuries. And to rule out an abscess a t the left jaw. His MATTHEW drain is able to be stripped and has some dark fluid in it that looks like se rosanguineous drainage. Time of Re-Eval 1353 Re-Eval Status Unchanged Re-Evaluation/Progress #2 Text/Dict Note Patient still refusing transfer he is going leav e AGAINST MEDICAL ADVICE but agrees to go see his surgeon in the morning. I discharged him with Augmentin. He will be nonw eightbearing on the left leg and in a boot on the right leg. He understands t hat the infection under his neck could spread and cause problems with his ai rway or his throat. He still refuses transfer or admission. Of note we do not have ENT on but I did offer the patient to be admitted h ere and see Dr. Acosta from face he also declined that. He wants to just see t he surgeon down at [facility] in the morning. He is stable and has capacity. Time of Eval 1900 Re-Eval Status Unchanged Re-Evaluation/Progress #3 Text/Dict Note called today to tell him about the asa [address] lala recommended. they are currently down at ED. 01/31 2020 1114am. ED Course Medication(s) Ordered Medication(s) Ordered: Anti-Infective Agents Sig/Zulma Start time Last Medication Dose Route Stop Time Status Admin Ampicillin Sodium/ 3 GM X1ED STA 01/29 1702 DC / Sulbactam Sodium IV 01/29 1801 1754 Sodium Chloride 100 ML Central Nervous System Agents Sig/Zulma Start time Last Medication Dose Route Stop Time Status Admin Hydrocodone Bitart/ 1 TAB X1ED STA 01/29 1349 D C 01/29 Acetaminophen PO 01/29 1350 1359 Diagnostic Agents Sig/Zulma Start time Last Medication Dose Route Stop Time Status Admin Iopamidol 75 ML .STK-MED ONE 01/29 1547 DC 06/0 7 IV 01/29 1548 1547 Electrolytic, Caloric, And Robyn Sig/Zulma Start time Last Medication Dose Route Stop Time Status Admin Sodium Chloride 1,772.73 ML X1ED STA 01/29 1702 DC 06/ IV / 1703 1754 Sodium Chloride 1,000 ML X1ED STA 01/29 1349 DC 06/ IV 06/ 1350 1359 Patient Discharge Departure Vital Signs/Condition Vital Signs First Documented: Result Date Time Pulse Ox 98 01/29 1300 B/P 132/91 01/29 1300 B/P Mean 104 01/29 1300 O2 Delivery Room air 01/29 1300 Temp 98.6 01/29 1300 Pulse 100 01/29 1300 Resp 18 01/29 1300 Last Documented: Result Date Time Pulse Ox 99 01/29 1800 B/P 135/76 01/29 1800 B/P Mean 95 01/29 1800 Temp 98.6 01/29 1800 Pulse 61 01/29 1800 Resp 16 01/29 1800 O2 Delivery Room air 01/29 1300 All vital signs available at the time of this en try have been reviewed. Clinical Impression Clinical Impression Primary Impression: Jaw pain Disposition Decision Discharge )( Discharged to Home Yes )( Time 185 )( Date 01/30/20 Other Against Medical Advice Yes Discharge/Care Plan (Auto) Prescriptions Current Visit Scripts No Known Home Medications Referrals No Primary or Family Physician (PCP) Electronically Signed by Clotilde Castanon MD on at 1114 RPT #:[id number] END OF REPORT 2020-01-19 16:48:00-00:00 [facility] ([facility]) Trauma - History Physical REPORT#:[id number] REPORT STATUS: Signed DATE:01/19/20 TIME: 1647 PATIENT: ARELI BACA UNIT #: [id number] ROOM/BED: [place] [address] : [birth year] AGE: 34 SEX: M ATTEND: Remy Wilkinson MD ADM AUTHOR: Raine Freire * ALL edits or amendments must be made on the el [employer]/computer document * History of Present Illness Time At Bedside )( Time at bedside: 1649 Pre-hospital Arrival mode: EMS Mechanism of injury: fall Complaints/injuries: Facial and R foot pain B mandible fx with dislocation HPI Chief complaint: facial and R foot pain HPI: Pt reports that around 2pm today he was in a betty e cutting and fell 20ft, he fell out of the tree with a log and hit his face on the log. Denies LOC. CUrrently he is c/o severe facial pain 10/10, wo rse with any movement. Also R foot pain with ecchymosis. Denies N/V or SOB Informant/Historian: patient and girlfriend History Additional medical history: anxiety, depression Family history: Reports: Hypertension. Alcohol use: Denies EtOH use Drug use: Denies recreational drugs Smoking status for patients 13 years old or olde r: Current every day smoker Other social history: Local resident, Good socia l support Medication/Allergy-Vaccine Hx Medications: Home Medications: No Known Home Medications Allergies: Coded Allergies: No Known Allergies (08/03/16) Pt reports no significant: past surgical history Occupation: construction, odd jobs Ambulatory status: Independent Review of Systems Constitutional: Reports: generalized weakness. Skin: Reports: bruising, ecchymosis. Eyes: Denies: visual loss/blurred. ENT: Reports: mouth pain, other (jaw pain). Respiratory: Denies: ALFARO (dyspnea on exertion), SOB. Cardiovascular: Denies: chest pain. GI: Denies: GERD. : Denies: dysuria, hematuria. Musculoskeletal: Extremity pain: Reports: right lower. Joint pain: Reports: right lower. Endocrine: Denies: weight gain, weight loss. Neuro: Reports: unable to speak (jaw pain). Denies: jesus dder dysfunction, bowel dysfunction, change in LOC. Psych: Reports: anxiety. Physical Exam VS/I O Last Documented: Result Date Time Pulse Ox 100 01/18 1652 B/P 171/80 01/18 1652 B/P Mean 110 01/18 1652 Pulse 87 01/18 1652 Resp 18 01/18 1652 Temp 97.7 01/18 1325 Patient Weight Weight (lb): Weight (oz): Weight (kg): 59.000 General appearance: alert, awake, oriented Wound/incision: Location: MOUTH Site Condition: odor, bleeding Fracture: bilateral mandible Head/Eyes: facial swelling Neck: atraumatic, full range of motion Cardiovascular: BP/pulses equal bilat, normal he art sounds, pulses all extremities, regular rate rhythm, no ectopy Respiratory/chest: aerating well, atraumatic, cl ear to auscultation Abdomen: soft, non-tender Back/Spine: Back: atraumatic Pelvis: atraumatic, pelvis stable Genitourinary: urine Extremities: decreased range of motion (RLE-swelling to foot), pedal pulses, dry , moves all Neuro/AUTO CLOCKS REPAIRER: alert, oriented X 3, follows commands, no motor deficits, no sensory deficits Jb Coma Score: [place] Coma Score: Response Value Patient intubated? no [place] eyes: eyes open spontaneously 4 [place] speech: oriented 5 Jb motor: obeys commands 6 Total 15 Skin: lacerations Psychiatry: abnl judgment/insight, anxious Diagnosis, Assessment Plan Problem List/A P: 1. Acute pain due to trauma 2. Fall from tree 3. Mandible fracture 4. Dislocated mandible 5. Foot pain, right Orders: Procedure Date/time Status PT AND PTT 01/23 0500 Active CBC W/AUTO DIFF 01/23 0500 Active BASIC METABOLIC PANEL 01/23 0500 Active PT AND PTT 01/22 0500 Active CBC W/AUTO DIFF 01/22 0500 Active BASIC METABOLIC PANEL 01/22 0500 Active PT AND PTT 01/21 0500 Active CBC W/AUTO DIFF 01/21 0500 Active BASIC METABOLIC PANEL 01/21 0500 Active PT AND PTT 01/20 0500 Active CBC W/AUTO DIFF 01/20 0500 Active BASIC METABOLIC PANEL 01/20 0500 Active NOTHING BY MOUTH 01/19 B Active PT AND PTT 01/19 0500 Active CBC W/AUTO DIFF 01/19 0500 Active BASIC METABOLIC PANEL 01/19 0500 Active Turn patient 01/18 1857 Active Sequential Compression Device 01/18 1857 Active Nurse to order labs 01/18 1857 Active NPO After Midnight 01/18 1857 Active Notify MD - Labs 01/18 1857 Active Notify MD - Vitals 01/18 1857 Active MRSA Screening 01/18 1857 Active Malnutrition Instructions 01/18 1857 Active Intake Output 01/18 1857 Active Elevate Head of Bed 01/18 1857 Active Code Sepsis Diag Panel Inst 01/18 185 Active Activity 01/18 185 Active VTE Prophylaxis Status 01/18 185 Active NUTRITIONAL CONSULT 01/18 185 Active CASE MANAGEMENT CONSULT 01/18 185 Active CTA NECK 01/18 1738 Active PHYSICIAN CONSULT 01/18 172 Active Consultants: Consultants: plastic surgery Plan discussed with: patient, spouse/partner, ad mitting physician, nurse Free Text DxA P Notes Free Text DxA P Notes: Pt s/p fall from tree, no LOC Bilateral mandible fx-PRS consulted plan for melissa susan tomorrow R foot swelling and pain-possible tiny avusion f x-will place in walking boot acute pain-hycet and morphine SCD. hold lovenox until post op IVF OK for clears now and then NPO after mn admit to trauma floor Electronically Signed by Raine Freire n 01/19/20 at 1904 [facility] #:[id number] END OF REPORT 2020-01-19 16:48:00-00:00 [facility] ([facility]) Trauma - History Physical REPORT#:[id number] REPORT STATUS: Signed DATE:01/19/20 TIME: 1647 PATIENT: ARELI BACA UNIT #: [id number] ROOM/BED: [address] : [birth year] AGE: 34 SEX: M ATTEND: Remy Wilkinson MD ADM AUTHOR: Raine Freire * ALL edits or amendments must be made on the [employer]/computer document * Raine Freire 01/19/201647: History of Present Illness Time At Bedside )( Time at bedside: 1650 Pre-hospital Arrival mode: EMS Mechanism of injury: fall Complaints/injuries: Facial and R foot pain B mandible fx with dislocation HPI Chief complaint: facial and R foot pain HPI: Pt reports that around 2pm today he was in a betty e cutting and fell 20ft, he fell out of the tree with a log and hit his face on the log. Denies LOC. CUrrently he is c/o severe facial pain 10/10, wo rse with any movement. Also R foot pain with ecchymosis. Denies N/V or SOB Informant/Historian: patient and girlfriend History Additional medical history: anxiety, depression Family history: Reports: Hypertension. Alcohol use: Denies EtOH use Drug use: Denies recreational drugs Smoking status for patients 13 years old or olde r: Current every day smoker Other social history: Local resident, Good socia l support Medication/Allergy-Vaccine Hx Medications: Home Medications: No Known Home Medications Allergies: Coded Allergies: No Known Allergies (08/03/16) Pt reports no significant: past surgical history Occupation: construction, odd jobs Ambulatory status: Independent Review of Systems Constitutional: Reports: generalized weakness. Skin: Reports: bruising, ecchymosis. Eyes: Denies: visual loss/blurred. ENT: Reports: mouth pain, other (jaw pain). Respiratory: Denies: ALFARO (dyspnea on exertion), SOB. Cardiovascular: Denies: chest pain. GI: Denies: GERD. : Denies: dysuria, hematuria. Musculoskeletal: Extremity pain: Reports: right lower. Joint pain: Reports: right lower. Endocrine: Denies: weight gain, weight loss. Neuro: Reports: unable to speak (jaw pain). Denies: jesus dder dysfunction, bowel dysfunction, change in LOC. Psych: Reports: anxiety. Physical Exam VS/I O Last Documented: Result Date Time Pulse Ox 100 01/18 165 B/P 171/80 01/18 165 B/P Mean 110 01/18 165 Pulse 87 01/18 1652 Resp 18 01/18 165 Temp 97.7 01/18 1325 Patient Weight Weight (lb): Weight (oz): Weight (kg): 59.000 General appearance: alert, awake, oriented Wound/incision: Location: MOUTH Site Condition: odor, bleeding Fracture: bilateral mandible Head/Eyes: facial swelling Neck: atraumatic, full range of motion Cardiovascular: BP/pulses equal bilat, normal he art sounds, pulses all extremities, regular rate rhythm, no ectopy Respiratory/chest: aerating well, atraumatic, cl ear to auscultation Abdomen: soft, non-tender Back/Spine: Back: atraumatic Pelvis: atraumatic, pelvis stable Genitourinary: urine Extremities: decreased range of motion (RLE-swelling to foot), pedal pulses, dry , moves all Neuro/AUTO CLOCKS REPAIRER: alert, oriented X 3, follows commands, no motor deficits, no sensory deficits [place] Coma Score: [place] Coma Score: Response Value Patient intubated? no Jb eyes: eyes open spontaneously 4 [place] speech: oriented 5 [place] motor: obeys commands 6 Total 15 Skin: lacerations Psychiatry: abnl judgment/insight, anxious Diagnosis, Assessment Plan Problem List/A P: 1. Acute pain due to trauma 2. Fall from tree 3. Mandible fracture 4. Dislocated mandible 5. Foot pain, right Orders: Procedure Date/time Status PT AND PTT 01/23 0500 Active CBC W/AUTO DIFF 01/23 0500 Active BASIC METABOLIC PANEL 01/23 0500 Active PT AND PTT 01/22 0500 Active CBC W/AUTO DIFF 01/22 0500 Active BASIC METABOLIC PANEL 01/22 0500 Active PT AND PTT 01/21 0500 Active CBC W/AUTO DIFF 01/21 0500 Active BASIC METABOLIC PANEL 01/21 0500 Active PT AND PTT 01/20 0500 Active CBC W/AUTO DIFF 01/20 0500 Active BASIC METABOLIC PANEL 01/20 0500 Active NOTHING BY MOUTH 01/19 B Active PT AND PTT 01/19 0500 Active CBC W/AUTO DIFF 01/19 0500 Active BASIC METABOLIC PANEL 01/19 0500 Active Turn patient 01/18 1857 Active Sequential Compression Device 01/18 1857 Active Nurse to order labs 01/18 1857 Active NPO After Midnight 01/18 1857 Active Notify MD - Labs 01/18 1857 Active Notify MD - Vitals 01/18 1857 Active MRSA Screening 01/18 1857 Active Malnutrition Instructions 01/18 1857 Active Intake Output 01/18 1857 Active Elevate Head of Bed 01/18 1857 Active Code Sepsis Diag Panel Inst 01/18 1857 Active Activity 01/18 1857 Active VTE Prophylaxis Status 01/18 1857 Active NUTRITIONAL CONSULT 01/18 1857 Active CASE MANAGEMENT CONSULT 01/18 1857 Active CTA NECK 01/18 173 Active PHYSICIAN CONSULT 01/18 172 Active Consultants: Consultants: plastic surgery Plan discussed with: patient, spouse/partner, ad daryl physician, nurse Free Text DxA P Notes Free Text DxA P Notes: Pt s/p fall from tree, no LOC Bilateral mandible fx-PRS consulted plan for melissa susan tomorrow R foot swelling and pain-possible tiny avusion f x-will place in walking boot acute pain-hycet and morphine SCD. hold lovenox until post op IVF OK for clears now and then NPO after mn admit to trauma floor Gato Wilkinson 01/19/201913: Attestations Physician Attestation Agree w/findings plan: I PERSONALLY PERFORMED HISTO RY, ROS, AND PHYSICAL EXAM ON THIS PATIENT AND HAD A DRNH-AA-NBCX ENCOUNTER. I OCHOA VE ALSO PERSONALLY ASSESSED AND EXAMINED THE PATIENT TODAY WITH LOKESH LANCASTER, AND AGREE WITH, THE ABOVE NURSE PRACTITIONER'S INTERIM HISTORY, PHYSICAL EXAM, ASSE SSMENT AND PLAN DESCRIBED. I HAVE FORMULATED THE ASSESSMENT AND MANAGEMENT PLAN. NEURO-INTACT. GCS 15. HEENT-BLOOD AROUND MOUTH. TENDER BILATERAL JAWS. UNABLE TO OPEN MOUTH. CV-RRR ABD-NT LUNG-CLEAR MS-RIGHT ANKLE SWELLING/TENDER AND APPLICATION SECURITY SPECIALIST. C/T/L SPINE NONTENDER. C-SPINE WITHOUT PAIN ON MOVEMENT. MARIO MANDIBULAR FRACTURES-ORDER CTA NECK TO R/O V ASCULAR INJURY. FACIAL TRAUMA CONSULT-SURGERY PLANNED IN AM. START IV ANCEF FO R FACIAL FRACTURES. ORTHO CONSULT PAIN CONTROL- ORAL NORCO/HYCET, IV MORPHINE NO CHANGE FROM WINDOW SHADE CUTTER PLAN. PT SEEN IN ED WITH WINDOW SHADE CUTTER. Electronically Signed by Raine Freire-Zulema o n 01/19/20 at 1904 Electronically Signed by Gato Wilkinson MD on at 1917 RPT #:[id number] END OF REPORT 2020-01-19 16:48:00-00:00 [facility] ([facility]) Trauma - History Physical REPORT#:[id number] REPORT STATUS: Signed DATE:01/19/20 TIME: 1647 PATIENT: ARELI BACA UNIT #: [id number] ROOM/BED: [address] : [birth year] AGE: 34 SEX: M ATTEND: Remy Wilkinson MD ADM AUTHOR: Raine Freire-Zulema * ALL edits or amendments must be made on the [employer]/computer document * See Addendum Raine Freire 01/19/201647: History of Present Illness Time At Bedside )( Time at bedside: 1650 Pre-hospital Arrival mode: EMS Mechanism of injury: fall Complaints/injuries: Facial and R foot pain B mandible fx with dislocation HPI Chief complaint: facial and R foot pain HPI: Pt reports that around 2pm today he was in a betty e cutting and fell 20ft, he fell out of the tree with a log and hit his face on the log. Denies LOC. CUrrently he is c/o severe facial pain 10/10, wo rse with any movement. Also R foot pain with ecchymosis. Denies N/V or SOB Informant/Historian: patient and girlfriend History Additional medical history: anxiety, depression Family history: Reports: Hypertension. Alcohol use: Denies EtOH use Drug use: Denies recreational drugs Smoking status for patients 13 years old or olde r: Current every day smoker Other social history: Local resident, Good socia l support Medication/Allergy-Vaccine Hx Medications: Home Medications: No Known Home Medications Allergies: Coded Allergies: No Known Allergies (08/03/16) Pt reports no significant: past surgical history Occupation: construction, odd jobs Ambulatory status: Independent Review of Systems Constitutional: Reports: generalized weakness. Skin: Reports: bruising, ecchymosis. Eyes: Denies: visual loss/blurred. ENT: Reports: mouth pain, other (jaw pain). Respiratory: Denies: ALFARO (dyspnea on exertion), SOB. Cardiovascular: Denies: chest pain. GI: Denies: GERD. : Denies: dysuria, hematuria. Musculoskeletal: Extremity pain: Reports: right lower. Joint pain: Reports: right lower. Endocrine: Denies: weight gain, weight loss. Neuro: Reports: unable to speak (jaw pain). Denies: jesus dder dysfunction, bowel dysfunction, change in LOC. Psych: Reports: anxiety. Physical Exam VS/I O Last Documented: Result Date Time Pulse Ox 100 01/18 1652 B/P 171/80 01/18 1652 B/P Mean 110 01/18 1652 Pulse 87 01/18 1652 Resp 18 01/18 1652 Temp 97.7 01/18 1325 Patient Weight Weight (lb): Weight (oz): Weight (kg): 59.000 General appearance: alert, awake, oriented Wound/incision: Location: MOUTH Site Condition: odor, bleeding Fracture: bilateral mandible Head/Eyes: facial swelling Neck: atraumatic, full range of motion Cardiovascular: BP/pulses equal bilat, normal he art sounds, pulses all extremities, regular rate rhythm, no ectopy Respiratory/chest: aerating well, atraumatic, cl ear to auscultation Abdomen: soft, non-tender Back/Spine: Back: atraumatic Pelvis: atraumatic, pelvis stable Genitourinary: urine Extremities: decreased range of motion (RLE-swelling to foot), pedal pulses, dry , moves all Neuro/AUTO CLOCKS REPAIRER: alert, oriented X 3, follows commands, no motor deficits, no sensory deficits [place] Coma Score: [place] Coma Score: Response Value Patient intubated? no Jb eyes: eyes open spontaneously 4 Jb speech: oriented 5 Jb motor: obeys commands 6 Total 15 Skin: lacerations Psychiatry: abnl judgment/insight, anxious Diagnosis, Assessment Plan Problem List/A P: 1. Acute pain due to trauma 2. Fall from tree 3. Mandible fracture 4. Dislocated mandible 5. Foot pain, right Orders: Procedure Date/time Status PT AND PTT 01/23 0500 Active CBC W/AUTO DIFF 01/23 0500 Active BASIC METABOLIC PANEL 01/23 0500 Active PT AND PTT 01/22 0500 Active CBC W/AUTO DIFF 01/22 0500 Active BASIC METABOLIC PANEL 01/22 0500 Active PT AND PTT 01/21 0500 Active CBC W/AUTO DIFF 01/21 0500 Active BASIC METABOLIC PANEL 01/21 0500 Active PT AND PTT 01/20 0500 Active CBC W/AUTO DIFF 01/20 0500 Active BASIC METABOLIC PANEL 01/20 0500 Active NOTHING BY MOUTH 01/19 B Active PT AND PTT 01/19 0500 Active CBC W/AUTO DIFF 01/19 0500 Active BASIC METABOLIC PANEL 01/19 0500 Active Turn patient 01/18 1857 Active Sequential Compression Device 01/18 1857 Active Nurse to order labs 01/18 1857 Active NPO After Midnight 01/18 1857 Active Notify MD - Labs 01/18 1857 Active Notify MD - Vitals 01/18 1857 Active MRSA Screening 01/18 1857 Active Malnutrition Instructions 01/18 1857 Active Intake Output 01/18 1857 Active Elevate Head of Bed 01/18 1857 Active Code Sepsis Diag Panel Inst 01/18 1857 Active Activity 01/18 185 Active VTE Prophylaxis Status 01/18 1857 Active NUTRITIONAL CONSULT 01/18 1857 Active CASE MANAGEMENT CONSULT 01/18 185 Active CTA NECK 01/18 1738 Active PHYSICIAN CONSULT 01/18 172 Active Consultants: Consultants: plastic surgery Plan discussed with: patient, spouse/partner, [facility], nurse Free Text DxA P Notes Free Text DxA P Notes: Pt s/p fall from tree, no LOC Bilateral mandible fx-PRS consulted plan for melissa susan tomorrow R foot swelling and pain-possible tiny avusion f x-will place in walking boot acute pain-hycet and morphine SCD. hold lovenox until post op IVF OK for clears now and then NPO after mn admit to trauma floor Gato Wilkinson 01/19/201913: Attestations Physician Attestation Agree w/findings plan: I PERSONALLY PERFORMED HISTO RY, ROS, AND PHYSICAL EXAM ON THIS PATIENT AND HAD A GRHO-JI-SCYL ENCOUNTER. I OCHOA VE ALSO PERSONALLY ASSESSED AND EXAMINED THE PATIENT TODAY WITH LOKESH LANCASTER, AND AGREE WITH, THE ABOVE NURSE PRACTITIONER'S INTERIM HISTORY, PHYSICAL EXAM, ASSE SSMENT AND PLAN DESCRIBED. I HAVE FORMULATED THE ASSESSMENT AND MANAGEMENT PLAN. NEURO-INTACT. GCS 15. HEENT-BLOOD AROUND MOUTH. TENDER BILATERAL JAWS. UNABLE TO OPEN MOUTH. CV-RRR ABD-NT LUNG-CLEAR MS-RIGHT ANKLE SWELLING/TENDER AND APPLICATION SECURITY SPECIALIST. C/T/L SPINE NONTENDER. C-SPINE WITHOUT PAIN ON MOVEMENT. MARIO MANDIBULAR FRACTURES-ORDER CTA NECK TO R/O V ASCULAR INJURY. FACIAL TRAUMA CONSULT-SURGERY PLANNED IN AM. START IV ANCEF FO R FACIAL FRACTURES. ORTHO CONSULT PAIN CONTROL- ORAL NORCO/HYCET, IV MORPHINE NO CHANGE FROM WINDOW SHADE CUTTER PLAN. PT SEEN IN ED WITH WINDOW SHADE CUTTER. Electronically Signed by Raine Freire o n 01/19/20 at 1904 Electronically Signed by Gato Wilkinson MD on at 1917 Addendum 1: 01/19/201917 by Gato Wilkinson MD CORRECTION, START CLINDA, NOT ANCEF. TECHNICALLY OPEN MOUTH FRACTURE. Electronically Signed by Gato Wilkinson MD on at 1918 RPT #:[id number] END OF REPORT 2020-01-19 16:48:00-00:00 [facility] [place] ([facility]) Trauma - History Physical REPORT#:[id number] REPORT STATUS: Signed DATE:01/19/20 TIME: 1647 PATIENT: ARELI BACA UNIT #: [id number] ROOM/BED: [place] [id number] : [birth year] AGE: 34 SEX: M ATTEND: Remy Wilkinson MD ADM AUTHOR: Raine Freire * ALL edits or amendments must be made on the el [employer]/computer document * See Addendum Raine Freire 01/19/201647: History of Present Illness Time At Bedside )( Time at bedside: 1650 Pre-hospital Arrival mode: EMS Mechanism of injury: fall Complaints/injuries: Facial and R foot pain B mandible fx with dislocation HPI Chief complaint: facial and R foot pain HPI: Pt reports that around 2pm today he was in a betty e cutting and fell 20ft, he fell out of the tree with a log and hit his face on the log. Denies LOC. CUrrently he is c/o severe facial pain 10/10, wo rse with any movement. Also R foot pain with ecchymosis. Denies N/V or SOB Informant/Historian: patient and girlfriend History Additional medical history: anxiety, depression Family history: Reports: Hypertension. Alcohol use: Denies EtOH use Drug use: Denies recreational drugs Smoking status for patients 13 years old or olde r: Current every day smoker Other social history: Local resident, [place] socia l support Medication/Allergy-Vaccine Hx Medications: Home Medications: No Known Home Medications Allergies: Coded Allergies: No Known Allergies (08/03/16) Pt reports no significant: past surgical history Occupation: construction, odd jobs Ambulatory status: Independent Review of Systems Constitutional: Reports: generalized weakness. Skin: Reports: bruising, ecchymosis. Eyes: Denies: visual loss/blurred. ENT: Reports: mouth pain, other (jaw pain). Respiratory: Denies: ALFARO (dyspnea on exertion), SOB. Cardiovascular: Denies: chest pain. GI: Denies: GERD. : Denies: dysuria, hematuria. Musculoskeletal: Extremity pain: Reports: right lower. Joint pain: Reports: right lower. Endocrine: Denies: weight gain, weight loss. Neuro: Reports: unable to speak (jaw pain). Denies: jesus dder dysfunction, bowel dysfunction, change in LOC. Psych: Reports: anxiety. Physical Exam VS/I O Last Documented: Result Date Time Pulse Ox 100 01/18 165 B/P 171/80 01/18 1652 B/P Mean 110 01/18 1652 Pulse 87 01/18 1652 Resp 18 01/18 165 Temp 97.7 01/18 1325 Patient Weight Weight (lb): Weight (oz): Weight (kg): 59.000 General appearance: alert, awake, oriented Wound/incision: Location: MOUTH Site Condition: odor, bleeding Fracture: bilateral mandible Head/Eyes: facial swelling Neck: atraumatic, full range of motion Cardiovascular: BP/pulses equal bilat, normal he art sounds, pulses all extremities, regular rate rhythm, no ectopy Respiratory/chest: aerating well, atraumatic, cl ear to auscultation Abdomen: soft, non-tender Back/Spine: Back: atraumatic Pelvis: atraumatic, pelvis stable Genitourinary: urine Extremities: decreased range of motion (RLE-swelling to foot), pedal pulses, dry , moves all Neuro/AUTO CLOCKS REPAIRER: alert, oriented X 3, follows commands, no motor deficits, no sensory deficits [place] Coma Score: Jb Coma Score: Response Value Patient intubated? no [place] eyes: eyes open spontaneously 4 [place] speech: oriented 5 Jb motor: obeys commands 6 Total 15 Skin: lacerations Psychiatry: abnl judgment/insight, anxious Diagnosis, Assessment Plan Problem List/A P: 1. Acute pain due to trauma 2. Fall from tree 3. Mandible fracture 4. Dislocated mandible 5. Foot pain, right Orders: Procedure Date/time Status PT AND PTT 01/23 0500 Active CBC W/AUTO DIFF 01/23 0500 Active BASIC METABOLIC PANEL 01/23 0500 Active PT AND PTT 01/22 0500 Active CBC W/AUTO DIFF 01/22 0500 Active BASIC METABOLIC PANEL 01/22 0500 Active PT AND PTT 01/21 0500 Active CBC W/AUTO DIFF 01/21 0500 Active BASIC METABOLIC PANEL 01/21 0500 Active PT AND PTT 01/20 0500 Active CBC W/AUTO DIFF 01/20 0500 Active BASIC METABOLIC PANEL 01/20 0500 Active NOTHING BY MOUTH 01/19 B Active PT AND PTT 01/19 0500 Active CBC W/AUTO DIFF 01/19 0500 Active BASIC METABOLIC PANEL 01/19 0500 Active Turn patient 01/18 1857 Active Sequential Compression Device 01/18 1857 Active Nurse to order labs 01/18 1857 Active NPO After Midnight 01/18 1857 Active Notify MD - Labs 01/18 1857 Active Notify MD - Vitals 01/18 1857 Active MRSA Screening 01/18 1857 Active Malnutrition Instructions 01/18 1857 Active Intake Output 01/18 1857 Active Elevate Head of Bed 01/18 1857 Active Code Sepsis Diag Panel Inst 01/18 1857 Active Activity 01/18 185 Active VTE Prophylaxis Status 01/18 1857 Active NUTRITIONAL CONSULT 01/18 1857 Active CASE MANAGEMENT CONSULT 01/18 1857 Active CTA NECK 01/18 1738 Active PHYSICIAN CONSULT 01/18 1722 Active Consultants: Consultants: plastic surgery Plan discussed with: patient, spouse/partner, ad daryl physician, nurse Free Text DxA P Notes Free Text DxA P Notes: Pt s/p fall from tree, no LOC Bilateral mandible fx-PRS consulted plan for melissa susan tomorrow R foot swelling and pain-possible tiny avusion f x-will place in walking boot acute pain-hycet and morphine SCD. hold lovenox until post op IVF OK for clears now and then NPO after mn admit to trauma floor Gato Wilkinson 01/19/201913: Attestations Physician Attestation Agree w/findings plan: I PERSONALLY PERFORMED HISTO RY, ROS, AND PHYSICAL EXAM ON THIS PATIENT AND HAD A HEFO-ON-YHNR ENCOUNTER. I OCHOA VE ALSO PERSONALLY ASSESSED AND EXAMINED THE PATIENT TODAY WITH LOKESH LANCASTER, AND AGREE WITH, THE ABOVE NURSE PRACTITIONER'S INTERIM HISTORY, PHYSICAL EXAM, ASSE SSMENT AND PLAN DESCRIBED. I HAVE FORMULATED THE ASSESSMENT AND MANAGEMENT PLAN. NEURO-INTACT. GCS 15. HEENT-BLOOD AROUND MOUTH. TENDER BILATERAL JAWS. UNABLE TO OPEN MOUTH. CV-RRR ABD-NT LUNG-CLEAR MS-RIGHT ANKLE SWELLING/TENDER AND APPLICATION SECURITY SPECIALIST. C/T/L SPINE NONTENDER. C-SPINE WITHOUT PAIN ON MOVEMENT. MARIO MANDIBULAR FRACTURES-ORDER CTA NECK TO R/O V ASCULAR INJURY. FACIAL TRAUMA CONSULT-SURGERY PLANNED IN AM. START IV ANCEF FO R FACIAL FRACTURES. ORTHO CONSULT PAIN CONTROL- ORAL NORCO/HYCET, IV MORPHINE NO CHANGE FROM WINDOW SHADE CUTTER PLAN. PT SEEN IN ED WITH WINDOW SHADE CUTTER. Electronically Signed by Raine FreireP-C o n 01/19/20 at 1904 Electronically Signed by Gato Wilkinson MD on at 1917 Addendum 1: 01/19/201917 by Gato Wilkinson MD CORRECTION, START CLINDA, NOT ANCEF. TECHNICALLY OPEN MOUTH FRACTURE. Electronically Signed by Gato Wilkinson MD on at 1917 Addendum 2: 01/19/202003 by Gato Wilkinson MD PT WAS DISCUSSING LEAVING AMA AND "GOING TO A HO SPITAL IN [place]" HE WAS MAD THAT HOSPITAL POLICY DURING WOULDN'T LET Aranza ESCOBAR STAY OVERNIGHT. I EXPLAINED TO HIM THAT HE HAS SERIOUS MANDIBULA R INJURIES AND NEEDS TO HAVE THEM SURGICALLY MANAGED. I EXPLAINED THAT HE NEE DED A CTANGIO OF NECK TO R/O VASCULAR INJURY AND THAT HE WOULD HAVE C ONTINUED PAIN, MALUNION, AND ALSO THAT HE HAS AN OPEN FRACTURE AND NEEDS ANTIBIOTICS AN D RISKS INFECTION. PT EVENTUALLY LEFT AMA, I WAS NOT NOTIFIED BEFORE H E LEFT. I AM NOT CERTAIN IF THE ERMD GAVE HIM ANY MEDICA TIONS PRESCIPTIONS PRIOR TO LEAVING. Electronically Signed by Gato Wilkinson MD on at 2007 RPT #:[id number] END OF REPORT 2020-01-19 13:33:00-00:00 [facility] ([facility]) EMERGENCY PROVIDER REPORT REPORT#:[id number] REPORT STATUS: Signed DATE:01/19/20 TIME: 1332 PATIENT: ARELI BACA UNIT #: [id number] ROOM/BED: [place] [id number] AGE: 34 SEX: M PCP PHYS: No Primary or Family Ph ysician SERVICE AUTHOR: Reza Stacy MD * ALL edits or amendments must be made on the [employer]/computer document * HPI-Trauma Multiple General Initial Greet Date/Time 01/19/20 1333 Presentation Chief Complaint Facial pain/injury Hx Obtained From Patient, EMS Onset Occurred Sudden, Today Progression since Onset Unchanged Quality Painful Free Text HPI Notes Free Text HPI Notes Patient presents via EMS after falling 15 feet f rom a tree he was cutting. After the tree was finished cutting it b aaron to fall and the patient fell with it. His chief complaint is injury to his jaw and right ankle. Per EMS patient avulsed his lower central and lower left lateral incisors. He also had injury, closed to the right ankle which they splinted. Mina dalton provided him with 150 mcg of fentanyl. Patient denies chest, back, abdomin al pain. He denies neck pain. He denies any medical history. Review of Systems ROS Statements All systems rev neg except as marked. Focused Review of Systems Constitutional Denies: Chills, Fever, Lethargy. Eyes Denies: Eye pain bilat, Redness bilat, Visual lo ss bilat. Respiratory Denies: Cough, non-productive, Cough, productive , Shortness of breath. Cardiovascular Denies: Chest pain, Syncope. Past Medical History - Adult Stated Complaint FALL FROM TREE Allergies Coded Allergies: No Known Allergies (08/03/16) Home Medications Reported Medications No Known Home Medications Additional Medical History anxiety, depression Drug Use Denies recreational drugs Smoking status for patients 13 years old or olde r: Current some day smoker Physical Exam Vital Signs Vital Signs First Documented: Result Date Time Pulse Ox 99 01/18 1325 B/P 144/98 01/18 1325 B/P Mean 113 01/18 1325 Temp 97.7 01/18 1325 Pulse 110 01/18 1325 Resp 22 01/18 1325 Last Documented: Result Date Time Pulse Ox 100 01/18 1652 B/P 171/80 01/18 1652 B/P Mean 110 01/18 1652 Pulse 87 01/18 1652 Resp 18 01/18 1652 Temp 97.7 01/18 1325 Review of Vital Signs Reviewed Focused PE General/Const Text/Dict Notes appears in moderate pain MS Head Text/Dict Notes avulsed lower L central and lateral incisors; trismus; severe pain with movement of mandible Eyes Eyes Atraumatic, PERRL, No periorbital swelling , Eyelids NL Ears/Nose/Throat Ears/Nose/Throat Atraumatic, Airway patent, Muc ous membranes moist, Pharynx NL, Tympanic membs NL, Ext aud canal NL, Nose ex am NL MS Neck Neck Atraumatic, Supple, Full range of motion, No swelling, Non-tender, No midline vertebral tend, No masses, No crepitus, No JVD, No tracheal deviation Resp/Chest Respiratory/Chest Atraumatic, Breath sounds NL, Breath sounds = bilat, No respiratory distress, No rales, No rhonchi, No w heezing, No stridor, No chest tenderness, No chest wall deformity, No crepitus Cardiovascular Cardiovascular Heart rate NL, Regular r hythm, Heart sounds NL, Cap refill not delayed, Peripheral circulation NL Abdomen/GI Abdomen/GI Atraumatic, Soft, Non-tender, No gua rding, No rebound, No distention MS Back Back Atraumatic, Inspection NL, Non-tender, No midline vertebral tend, No paraspinal tenderness, No CVA tenderness MS Upper Extrem Upper Extremity/MS Atraumatic, Inspection NL, N o swelling, Non-tender, No erythema, No deformity, Neurologic intact, Vascu lar intact MS Lower Extrem Text/Dict Notes ttp and swelling dorsum of r foot and ankle Skin Skin Atraumatic, Color NL, Warm, Dry, Intact, T urgor NL, No swelling Neurologic Neurologic Oriented X3, Speech NL, No motor def icits, No sensory deficits Interpretation Diagnostics Lab Results Interpretation Results Laboratory Tests 01/19/20 1326: [Embedded Image Not Available] Laboratory Tests: 01/18 1326 Chemistry Sodium (133 - 144 mmol/L) 137.0 Potassium (3.5 - 5.1 mmol/L) 3.4 L Chloride (95 - 105 mmol/L) 108 H Carbon Dioxide (21 - 32 mmol/L) 23 Anion Gap (4.0 - 15.0 GAP calc) 6.0 BUN (7 - 18 MG/DL) 14 Creatinine (0.55 - 1.30 MG/DL) 1.14 Glucose (70 - 110 MG/DL) 100 Calcium (8.5 - 10.1 MG/DL) 9.1 Specimen Appearance (1 NORMAL Index/DL) 1 RAVINDRA L <2 MG Specimen Hemolysis (1 NORMAL Index/DL) 2 TRACE 10-25 MG Coagulation PT (9.4 - 12.5 SECONDS) 12.6 H INR (0.88 - 1.13 INR Unit) 1.09 PTT (Kelli) (24 - 37.7 SECONDS) 24.7 Hematology WBC (4.1 - 12.1 K/mm3) 8.8 RBC (3.8 - 5.5 M/mm3) 4.70 Hgb (10.6 - 15.8 G/DL) 13.7 Hct (31.8 - 47.4 %) 41.5 MCV (80.1 - 101.1 fL) 88.3 MCH (25.3 - 35.3 pg) 29.1 MCHC (32.7 - 35.1 G/DL) 33.0 RDW (12.2 - 16.4 %) 12.4 Plt Count (155 - 337 K/mm3) 256 MPV (7.6 - 10.4 fL) 10.2 Gran % (37.8 - 82.6 %) 65.0 Lymph % (Auto) (14.1 - 45.4 %) 24.2 [place] % (Auto) (2.5 - 11.7 %) 8.4 Eos % (Auto) (0.0 - 6.2 %) 1.4 Baso % (Auto) (0.0 - 2.6 %) 0.5 Gran # (2.0 - 13.7 k/mm3) 5.72 Lymph # (Auto) (0.6 - 3.8 K/mm3) 2.13 [place] # (Auto) (0.11 - 0.59 K/mm3) 0.74 H Eos # (Auto) (0.0 - 0.4 K/mm3) 0.12 Baso # (Auto) (0.0 - 0.1 K/mm3) 0.04 Immature Gran % (0.0 - 2.0 %) 0.5 Nucleated RBC % (0.0 - 1.0 /100WBC%) 0.0 Nucleated RBCs # (0.00 - 0.05 K/mm3) 0.00 Recent Impressions: RADIOLOGY - XR TIBIA/FIBULA 2 V RT 01/18 1403 Report Impression - Status: SIGNED Entered: 01/19/2020 1422 IMPRESSION: No acute findings. Impression By: Rosemary Loera M.D. RADIOLOGY - XR FEMUR MIN 2 VW RT 01/18 1404 Report Impression - Status: SIGNED Entered: 01/19/2020 142 IMPRESSION: No acute findings. Impression By: Rosemary Loera M.D. RADIOLOGY - XR ANKLE 3 + V RT 01/18 1405 Report Impression - Status: SIGNED Entered: 01/19/2020 1422 IMPRESSION: No acute findings. Impression By: Rosemary Loera M.D. CAT SCAN - CT MAXIFAC W/O CONTRAST 01/18 1425 Report Impression - Status: SIGNED Entered: 01/19/2020 5809 IMPRESSION: 1. The mandible is dislocated anteriorly with fr acture of both mandibular condyles. 2. There is also a nondisplaced fracture of the anterior mandible just left lateral to midline. 3. No other facial bone fracture identified. Impression By: Yimi Vick CAT SCAN - CT C-SPINE W/O CONT 01/18 1425 Report Impression - Status: SIGNED Entered: 01/19/2020 1459 IMPRESSION: No evidence of C-spine fracture. Bilateral mandibular head and neck fractures wit h adjacent soft tissue injury.. Location: U19 Impression By: [email or web address] - Sixto Roque M.D CAT SCAN - CT HEAD/BRAIN W/O CONT 01/18 1425 Report Impression - Status: SIGNED Entered: 01/19/2020 1452 IMPRESSION: Negative noncontrast CT of the head. Impression By: Yimi Vick CAT SCAN - CT ABD PELVIS W/CONT 01/18 1435 Report Impression - Status: SIGNED Entered: 01/19/2020 1504 IMPRESSION: No significant chest abnormalities. CT OF THE ABDOMEN AND PELVIS WITH and WITHOUT CO NTRAST Location code:J9 CLINICAL HISTORY:15 ft fall, pain COMPARISON: TECHNIQUE:Multiple transaxial images of the abdo men and pelvis were obtained before and after 100 mL of Isovue 300 c ontrast and oral contrast. Coronal reformatted images were obtain ed. CT imaging performed at this location utilizes r adiation dose optimization techniques which include one or mor e of the following: -Automated exposure control -Adjustment of the mA and/or kV according to pat ient size -Use of iterative reconstruction technique CT Radiation Dose DLP mGy-cm FINDINGS: Abdomen The visualized structures of the lower thorax a re unremarkable. The liver, spleen, pancreas, gallbladder, adrena l glands, and both kidneys are within normal limits. Focal fatty de position is noted at the medial right hepatic lobe. Unopacified loops of large and small bowel are w ithin normal limits. There is no evidence for obstruction or abnormal mural thickening. Normal caliber appendix is seen in the right low er quadrant. No mesenteric or retroperitoneal lymphadenopathy is found. There is no free intraperitoneal air or fluid. Visualized abdominal aorta is within normal limi ts. FINDINGS: Pelvis Visualized intra-pelvic contents are within norm al limits. The urinary bladder is unremarkable. There is no jorge e pelvic fluid. No acute fracture. IMPRESSION: No acute findings. Impression By: Rosemary Loera M.D. CAT SCAN - CT CHEST W/CONTRAST 01/18 1435 Report Impression - Status: SIGNED Entered: 01/19/2020 1504 IMPRESSION: No significant chest abnormalities. CT OF THE ABDOMEN AND PELVIS WITH and WITHOUT CO NTRAST Location code:J9 CLINICAL HISTORY:15 ft fall, pain COMPARISON: TECHNIQUE:Multiple transaxial images of the abdo men and pelvis were obtained before and after 100 mL of Isovue 300 c ontrast and oral contrast. Coronal reformatted images were obtain ed. CT imaging performed at this location utilizes r adiation dose optimization techniques which include one or mor e of the following: -Automated exposure control -Adjustment of the mA and/or kV according to pat ient size -Use of iterative reconstruction technique CT Radiation Dose DLP mGy-cm FINDINGS: Abdomen The visualized structures of the lower thorax a re unremarkable. The liver, spleen, pancreas, gallbladder, adrena l glands, and both kidneys are within normal limits. Focal fatty de position is noted at the medial right hepatic lobe. Unopacified loops of large and small bowel are w ithin normal limits. There is no evidence for obstruction or abnormal mural thickening. Normal caliber appendix is seen in the right low er quadrant. No mesenteric or retroperitoneal lymphadenopathy is found. There is no free intraperitoneal air or fluid. Visualized abdominal aorta is within normal limi ts. FINDINGS: Pelvis Visualized intra-pelvic contents are within norm al limits. The urinary bladder is unremarkable. There is no jorge e pelvic fluid. No acute fracture. IMPRESSION: No acute findings. Impression By: Rosemary Loera M.D. CAT SCAN - CT L-SPINE W/O CONTRAST 01/18 1435 Report Impression - Status: SIGNED Entered: 01/19/2020 1500 IMPRESSION: No acute abnormality. Impression By: Rosemary Loera M.D. CAT SCAN - CT T-SPINE W/O CONTRAST 01/18 1435 Report Impression - Status: SIGNED Entered: 01/19/2020 1500 IMPRESSION: No acute abnormality. Impression By: Rosemary Loera M.D. RADIOLOGY - XR FOOT 2 VIEWS RT 01/18 1627 Report Impression - Status: SIGNED Entered: 01/19/2020 1640 IMPRESSION: Dorsal soft tissue swelling. Punctate calcific density along the distal tami n of one of the cuneiforms, seen only on the lateral view. This is nonspecific, but should be correlated to exclude a a small chip f racture. Impression By: [email or web address] Kit Alcala MD ECG #1 Interpretation Text/Dict Note EKG my interpretation: Sinus tachycardia, nonspe cific ST-T wave abnormality, normal QRS, normal QTC Re-Evaluation MDM Free Text MDM Notes Free Text MDM Notes Discussed findings with patient and significant other who is at bedside. Will admit patient for further treatment evaluation. Dr. Wilkinson agrees to admit. Discussed with Dr. Avery who agrees to consult. ED Course Medication(s) Ordered Medication(s) Ordered: Anti-Infective Agents Sig/Zulma Start time Last Medication Dose Route Stop Time Status Admin Clindamycin Phosphate 50 ML X1ED STA 01/18 1525 DC 01/18 IV 01/18 1554 1530 Central Nervous System Agents Sig/Zulma Start time Last Medication Dose Route Stop Time Status Admin Morphine Sulfate 6 MG X1ED STA 01/18 1455 DC IV 01/18 1456 1619 Morphine Sulfate 6 MG X1ED STA 01/18 1454 DC IV 01/18 1455 1500 Serums, Toxoids, And Vaccines Sig/Zulma Start time Last Medication Dose Route Stop Time Status Admin Tetanus/Diphtheria 0.5 ML X1ED STA 01/18 1524 D C Toxoids IM 01/18 1525 Consultation Consultation Referral/Consult Name Ruslan Avery MD Flush Tester Called Plastic surgery Requested Call Time 1647 Requested Call Date 01/19/20 Call Returned Call returned Call Returned Time 1647 Call Returned Date 01/19/20 Flush Tester Will see patient Patient Discharge Departure Vital Signs/Condition Vital Signs First Documented: Result Date Time Pulse Ox 99 01/18 1325 B/P 144/98 01/18 1325 B/P Mean 113 01/18 1325 Temp 97.7 01/18 1325 Pulse 110 01/18 1325 Resp 22 01/18 1325 Last Documented: Result Date Time Pulse Ox 100 01/18 1652 B/P 171/80 01/18 1652 B/P Mean 110 01/18 1652 Pulse 87 01/18 1652 Resp 18 01/18 1652 Temp 97.7 01/18 1325 All vital signs available at the time of this en try have been reviewed. Clinical Impression Clinical Impression Primary Impression: MANDIBLE FRACTURES Secondary Impressions: FALL, R FOOT INJURY Disposition Decision Admit Admit Physician Name Gato Wilkinson MD Admit Physician Trauma Surgeon Request Time 164 Request Date 01/19/20 )( Admission Accepts Yes )( Accepted Time 1644 )( Accepted Date 01/19/20 Discharge/Care Plan (Auto) Prescriptions Current Visit Scripts No Known Home Medications Referrals No Primary or Family Physician (PCP) Electronically Signed by Reza Stacy MD on 01/18 at 2231 RPT #:[id number] END OF REPORT
--- NOTE | 2023-04-16 20:16 | RAD REPORT ---
EXAM DESCRIPTION: RAD - Facial Bones <3 Views - 04/16/2023 7:49 pm CLINICAL HISTORY: FACIAL PAIN Jaw pain and numbness COMPARISON: No comparisons FINDINGS: The paranasal sinuses and mastoids are clear. Sella turcica is normal size. Hardware is pr esent left aspect of the mandible.
--- NOTE | 2023-04-16 20:57 | RAD REPORT ---
EXAM DESCRIPTION: CT - CTHCSPWOC - 04/16/2023 8:21 pm CLINICAL HISTORY: Trauma, head and neck injury. PAIN COMPARISON: No comparisons TECHNIQUE: Axial 5 mm thick images of the head were obtained. Axial 2 mm thick images of the cervical spine were obtained with sagittal and coronal reconstruction images generated and reviewed. All CT scans are performed using dose optimization technique as appropriate and may include automated exposure control or mA/KV adjustment according to patient size. FINDINGS: CT HEAD WITHOUT CONTRAST: No acute hemorrhage, hydrocephalus or extra-axial collection is identified.No areas of brain edema or midline shift. The paranasal sinuses and mastoids are clear.The calvarium is intact. CT CERVICAL SPINE WITHOUT CONTRAST: No fracture or subluxation.Mild cervical spondylosis.No prevertebral soft tissues swelling is identif ied. IMPRESSION: No acute intracranial or cervical spine findings.
--- NOTE | 2023-04-16 20:59 | EDPHYS ---
Physician Documentation [facility] Name: Edilberto Baca Age: 37 yrs Sex: Male : 1985 Arrival Date: 04/16/2023 Time: 18:53 Bed 14 Private MD: ED Physician Augusto Mena HPI: 04/16 22:27 This 37 yrs old Male presents to ER via Ambulatory with complaints of Fall Injury. kb 22:27 Details of fall: The patient fell from an upright position. Onset: The symptoms/episode kb began/occurred 2 day(s) ago. Associated injuries: The patient sustained injury to the head, pain, neck injury, pain, pain with movement. Severity of symptoms: At their worst the symptoms were moderate, in the emergency department the symptoms are unchanged. The patient has not experienced similar symptoms in the past. The patient has not recently seen a physician. Pt reports he fell 2 days ago and hit the back of his head. Reports headache and neck pain since then. also reports pain to jaw. States he has had surgery in the past and feels like something is off. Historical: - Allergies: 19:07 No Known Allergies; nj1 - PMHx: 19:07 None; nj1 - PSHx: 19:07 Jaw reconstruction; nj1 - Immunization history:: Client reports having NOT received the Covid vaccine. - Social history:: Smoking status: Patient reports the use of cigarette tobacco products, smokes one-half pack cigarettes per day. ROS: 22:26 Constitutional: Negative for fever, chills, and weight loss. kb 22:26 ENT: Positive for pain in jaw. 22:26 Neck: Positive for pain with movement, pain at rest. 22:26 Neuro: Positive for headache. 22:26 All other systems are negative. Exam: 22:26 Constitutional: This is a well developed, well nourished patient who is awake, alert, kb and in no acute distress. Head/Face: Normocephalic, atraumatic. Eyes: Pupils equal round and reactive to light, extra-ocular motions intact. Lids and lashes normal. Conjunctiva and sclera are non-icteric and not injected. Cornea within normal limits. Periorbital areas with no swelling, redness, or edema. ENT: Moist Mucous membranes Cardiovascular: Regular rate and rhythm with a normal S1 and S2. No gallops, murmurs, or rubs. No pulse deficits. Respiratory: Respirations even and unlabored. No increased work of breathing. Talking in full sentences Skin: Warm, dry with normal turgor. Normal color. MS/ Extremity: Pulses equal, no cyanosis. Neurovascular intact. Full, normal range of motion. Neuro: Awake and alert, GCS 15, oriented to person, place, time, and situation. Moves all extremities. Normal gait. 22:26 Neck: External neck: tenderness, that is mild, of the left mid cervical area, right mid cervical area, left trapezius, lower cervical area and right trapezius. Vital Signs: 19:04 BP 145 / 98; Pulse 88; Resp 18; Temp 98.8(TE); Pulse Ox 100% on R/A; Weight 58.97 kg; nj1 Height 5 ft. 3 in. ; 21:11 BP 141 / 103; Pulse 82; Resp 17 S; Pulse Ox 100% on R/A; ha1 19:04 Body Mass Index 23.03 (58.97 kg, 160.02 cm) nj1 MDM: 18:58 Patient medically screened. kb 22:27 Differential diagnosis: closed head injury, contusion, fracture, strain. Data reviewed: kb vital signs, nurses notes. Counseling: I had a detailed discussion with the patient and/or guardian regarding the historical points, exam findings, and any diagnostic results supporting the discharge/admit diagnosis, radiology results, the need for outpatient follow up, a family practitioner, to return to the emergency department if symptoms worsen or persist or if there are any questions or concerns that arise at home. 04/16 19:08 Order name: CT Head C Spine; Complete Time: 20:58 kb 04/16 19:08 Order name: Facial Bones <3 Views XRAY; Complete Time: 20:18 kb Administered Medications: No medications were administered Disposition Summary: 04/16/23 20:59 Discharge Ordered Location: Home kb Condition: Stable kb Diagnosis - Cervicalgia kb - Unspecified injury of head, initial encounter kb Followup: kb - With: Emergency Department - When: As needed - Reason: Worsening of condition Followup: kb - With: Private Physician - When: 2 - 3 days - Reason: Recheck today's complaints, Continuance of care, Re-evaluation by your physician Discharge Instructions: - Discharge Summary Sheet kb - Head Injury, Adult, [id number] kb Forms: - Medication Reconciliation Form kb - Thank You Letter kb - Antibiotic Education kb - Prescription Opioid Use kb - Patient Portal Instructions kb - Leadership Thank You Letter kb Signatures: Dispatcher [employer] Kate Posada, JARRETT-C JARRETT-Franchesca Clarke, RN RN nj1
--- NOTE | 2023-04-16 20:59 | ER ---
Nurse's Notes [facility] Name: Edilberto Baca Age: 37 yrs Sex: Male : 1985 Arrival Date: 04/16/2023 Time: 18:53 Bed 14 Private MD: Diagnosis: Cervicalgia;Unspecified injury of head, initial encounter Presentation: 04/16 19:04 Chief complaint: Patient states: Jaw is numb and neck is hurting. Fall 2 days ago. Had nj1 prior injury. Coronavirus screen: Vaccine status: Patient reports being unvaccinated. Ebola Screen: Patient denies travel to an Ebola-affected area in the 21 days before illness onset. Initial Sepsis Screen: Does the patient meet any 2 criteria? No. Patient's initial sepsis screen is negative. Does the patient have a suspected source of infection? No. Patient's initial sepsis screen is negative. Risk Assessment: Do you want to hurt yourself or someone else? Patient reports no desire to harm self or others. Onset of symptoms was April 14, 2023. 19:04 Method Of Arrival: Ambulatory [facility] 19:04 Acuity: JAMEE 3 nj Historical: - Allergies: 19:07 No Known Allergies; nj1 - PMHx: 19:07 None; nj1 - PSHx: 19:07 Jaw reconstruction; nj1 - Immunization history:: Client reports having NOT received the Covid vaccine. - Social history:: Smoking status: Patient reports the use of cigarette tobacco products, smokes one-half pack cigarettes per day. Screenin:09 [facility] ED Fall Risk Assessment (Adult) History of falling in the last 3 months, ha1 including since admission No falls in past 3 months (0 pts) Confusion or Disorientation No (0 pts) Intoxicated or Sedated No (0 pts) Impaired Gait No (0 pts) Mobility Assist Device Used No (0 pt) Altered Elimination No (0 pt) Score/Fall Risk Level 0 - 2 = Low Risk Oriented to surroundings, Maintained a safe environment, Educated pt \T\ family on fall prevention, incl call for assistance when getting out of bed. Abuse screen: Denies threats or abuse. Denies injuries from another. Nutritional screening: No deficits noted. Tuberculosis screening: No symptoms or risk factors identified. Assessment: 20:50 General: Appears comfortable, Behavior is calm, cooperative. Pain: Complains of pain in ha1 neck Pain does not radiate. Pain currently is 8 out of 10 on a pain scale. Neuro: Level of Consciousness is awake, alert, obeys commands, Oriented to person, place, time, situation. Cardiovascular: Patient's skin is warm and dry. Respiratory: Airway is patent Respiratory effort is even, unlabored, Respiratory pattern is regular, symmetrical. Vital Signs: 19:04 BP 145 / 98; Pulse 88; Resp 18; Temp 98.8(TE); Pulse Ox 100% on R/A; Weight 58.97 kg; nj1 Height 5 ft. 3 in. ; 21:11 BP 141 / 103; Pulse 82; Resp 17 S; Pulse Ox 100% on R/A; ha1 19:04 Body Mass Index 23.03 (58.97 kg, 160.02 cm) [facility] ED Course: 18:56 Patient arrived in ED. im 18:58 Kate Ozuna FNP-C is PSYCHIATRICP. kb 18:58 Augusto Mena MD is Attending Physician. kb 19:07 Triage completed. nj1 19:08 Arm band placed on left wrist. nj1 19:51 Facial Bones <3 Views XRAY In Process Unspecified. EDMS 20:23 CT Head C Spine In Process Unspecified. EDMS 20:28 Patient has correct armband on for positive identification. Bed in low position. Call ha1 light in reach. Side rails up X 1. 21:07 Shirin Carr, RN is Primary Nurse. ha1 21:10 No provider procedures requiring assistance completed. Patient did not have IV access ha1 during this emergency room visit. 21:12 Provided Education on: follow ups . ha1 Administered Medications: No medications were administered Medication: 21:10 VIS not applicable for this client. ha1 Outcome: 20:59 Discharge ordered by . kb 21:10 Discharged to home ambulatory. ha1 21:10 Condition: stable 21:10 Discharge instructions given to patient, Instructed on discharge instructions, follow up and referral plans. Demonstrated understanding of instructions, follow-up care. 21:12 Patient left the ED. ha1 Signatures: Dispatcher [employer] EDMS Kate Ozuna FNP-C FNP-Ckb Ayala, Heidy, RN RN [facility] Franchesca Crain RN RN [facility] [place], [place] im
[2023-04-16 21:33] VITALS: TEMP 98.8; O2SAT 100
[2023-04-16 21:34] VITALS: BP 141/103
== END 2023-04-16 21:12 | disposition home or self-care (01) ==
LOC: ER 18:53
DX: M54.2 Cervicalgia (principal); S09.90XA Unspecified injury of head, initial encounter
CPT/HCPCS: 70140; 70450; 72125